=== PATIENT | female | born 1930 | race Caucasian/White ===

== ENCOUNTER 2016-12-28 09:38 | Emergency (ER) | payer MEDICARE, OTHER ==
[~2016-12-28 09:38] MED LIST: AMLO5 PO; AUGM875T PO; FURO20TA PO; IPRAAER INH; LEVO88TA2 PO; LOSA100T3 PO; METO100T PO; PANT40TA3 PO; POTA20TA5 PO; SYMB160A INH; VENTAER INH; WARF4TAB51 PO
[2016-12-28 09:40] VITALS: BP 120/62; PULSE 102; RESP 24; TEMP 97.5; O2SAT 99
--- NOTE | 2016-12-28 09:59 | PD ---
HPI Chief Complaint: Syncope/Near-Syncope Time Seen by Provider: 09:59 Travel History International Travel<30 days: No Contact w/Intl Traveler<30days: No Traveled to known affect area: No History of Present Illness HPI 86-year-old female came to the emergency room with history of near syncopal episode this morning. Patient says that this happened at around 8:30 AM. She says she is positive she never passed out but got really lightheaded. No history of nausea vomiting. She says that yesterday she was feeling tired and some shortness of breath. Her oxygen saturation was 94-95% on room air. Patient is very active in spite of her age. She still works. She does have history of atrial fibrillation and is on Coumadin. Upon asking she said that she has not noticed any ankle swelling. Her heart rate was in 100s and atrial fibrillation on the monitor. Denied any history of chest pain. She has a pacemaker and has a top carrier. Currently she says she just feels a little tired and little short of breath. [facility] Past Medical History Narrative Medical List of her past medical, surgical, social and family history was reviewed from the nursing note. Hx Anticoagulant Therapy: Yes (COUMADIN) Arthritis: Yes Asthma: No Atrial Fibrillation: Yes Autoimmune Disease: No Blood Disorders: No Heart Rhythm Problems: Yes Cancer: No Cardiovascular Problems: Yes High Cholesterol: No Chemotherapy: No Chest Pain: Yes Congestive Heart Failure: Yes COPD: No Cerebrovascular Accident: No Diabetes: No Diminished Hearing: No Endocrine: Yes Gastrointestinal Disorders: No GERD: Yes (Occasionally) Genitourinary: Yes (Incontinence) Headaches: No Hiatal Hernia: No Heparin Induced Thrombocytopen: No Hypertension: Yes Immune Disorder: No Implanted Vascular Access Dvce: Yes (PACEMAKER) Kidney Stones: No Musculoskeletal: No Neurologic: No Psychiatric: No Reproductive: No Respiratory: Yes Migraines: No Radiation Therapy: No Renal Failure: No Seizures: No Sickle Cell Disease: No Sleep Apnea: No Thyroid Disease: Yes (Hypothyroidism) Ulcer: No ?: Not Menopausal: Yes : 3 Para: 3 Past Surgical History Abdominal Surgery: No AICD: No Arteriovenous Shunt: Yes Body Medical Devices: pacemaker Cardiac Surgery: Yes (Pacemaker) Ear Surgery: No Endocrine Surgery: No Eye Surgery: Yes (Bilateral cataract removal with Implants) Genitourinary Surgery: Yes (Bladder Mesh/Pesserie) Gynecologic Surgery: No Hysterectomy: Yes Insulin Pump: No Joint Replacement: No Neurologic Surgery: No Oral Surgery: Yes (Teeth removed) Pacemaker: Yes Thoracic Surgery: No Other Surgery: Yes (see hx) Social History Alcohol Use: No (PT DENIES) Tobacco Use: No Substance Use: No Allergies-Medications (Allergen,Severity, Reaction): Uncoded Allergies: no mri (Adverse Reaction, Severe, 06/07/16) pacemaker Comments List of her allergies reviewed from the nursing note. Reported Meds & Prescriptions Reported Meds & Active Scripts Active Potassium Chloride Microencaps 20 Meq Tab 20 Meq PO DAILY Ventolin Hfa 18 GM Inh (Albuterol Sulfate) 90 Mcg/Act Aer 2 Puff INH Q4H PRN Combivent Respimat Inh (Ipratropium-Albuterol Inh) 20-100 Longterm/Act Aero 1 Puff INH QID Symbicort Inh (Budesonide/Formoterol Fumarate) 160-4.5 Mcg/Act Aero 1 Puff INH Q12HR Norvasc (Amlodipine Besylate) 5 Mg Tab 5 Mg PO BID Reported Losartan-Hydrochlorothiazide 100-12.5 Mg Tab 1 Tab PO DAILY Furosemide 20 Mg Tab 20 Mg PO DAILY Metoprolol Tartrate 100 Mg Tab 100 Mg PO BID Warfarin 2 Mg Tab 2 Mg PO DAILY Levothyroxine (Levothyroxine Sodium) 88 Mcg Tab 88 Mcg PO DAILY Pantoprazole (Pantoprazole Sodium) 40 Mg Tab 40 Mg PO DAILY Narrative Medication List of home medications reviewed from the nursing note. Review of Systems Except as stated in HPI: all other systems reviewed are Neg Physical Exam Narrative GENERAL: Awake, alert, elderly, mild distress SKIN: Focused skin assessment warm/dry. HEAD: Atraumatic. Normocephalic. EYES: Pupils equal and round. No scleral icterus. No injection or drainage. ENT: No nasal bleeding or discharge. Mucous membranes pink and moist. NECK: Trachea midline. No JVD. CARDIOVASCULAR: Regular rate and rhythm. No murmur appreciated. RESPIRATORY: No accessory muscle use. Clear to auscultation. Breath sounds equal bilaterally. GASTROINTESTINAL: Abdomen soft, non-tender, nondistended. Hepatic and splenic margins not palpable. MUSCULOSKELETAL: No obvious deformities. No clubbing. No cyanosis. Mild pedal edema NEUROLOGICAL: Awake and alert. No obvious cranial nerve deficits. Motor grossly within normal limits. Normal speech. PSYCHIATRIC: Appropriate mood and affect; insight and judgment normal. Data Data Last Documented VS Vital Signs Date Time Temp Pulse Resp B/P Pulse Ox O2 Delivery O2 Flow Rate FiO2 12/28/16 11:48 112 20 110/67 95 Room Air 12/28/16 10:26 2 12/28/16 09:40 97.5 Orders Electrocardiogram (12/28/16 ) Basic Metabolic Panel (Bmp) (12/28/16 10:10) Complete Blood Count With Diff (12/28/16 10:10) Magnesium (Mg) (12/28/16 10:10) B-Type Natriuretic Peptide (12/28/16 10:10) Troponin I (12/28/16 10:10) Prothrombin Time / Inr (Pt) (12/28/16 10:10) Urinalysis - C+S If Indicated (12/28/16 10:10) Chest, Single Ap (12/28/16 10:10) Ct Brain W/O Iv Contrast(Rout) (12/28/16 10:10) Ecg Monitoring (12/28/16 10:10) Iv Access Insert/Monitor (12/28/16 10:10) Oximetry (12/28/16 10:10) Sodium Chloride 0.9% Flush (Ns Flush) (12/28/16 10:15) Thyroid Stimulating Hormone (12/28/16 10:10) Furosemide Inj (Lasix Inj) (12/28/16 11:30) Metoprolol Tartrate (Lopressor) (12/28/16 11:30) Labs Laboratory Tests Test 12/28/16 10:20 White Blood Count 6.4 TH/MM3 Red Blood Count 3.72 MIL/MM3 Hemoglobin 10.2 GM/DL Hematocrit 32.1 % Mean Corpuscular Volume 86.2 FL Mean Corpuscular Hemoglobin 27.3 PG Mean Corpuscular Hemoglobin 31.7 % Concent Red Cell Distribution Width 16.2 % Platelet Count 189 TH/MM3 Mean Platelet Volume 9.8 FL Neutrophils (%) (Auto) 69.1 % Lymphocytes (%) (Auto) 19.6 % Monocytes (%) (Auto) 6.6 % Eosinophils (%) (Auto) 4.0 % Basophils (%) (Auto) 0.7 % Neutrophils # (Auto) 4.4 TH/MM3 Lymphocytes # (Auto) 1.2 TH/MM3 Monocytes # (Auto) 0.4 TH/MM3 Eosinophils # (Auto) 0.3 TH/MM3 Basophils # (Auto) 0.0 TH/MM3 CBC Comment DIFF FINAL Differential Comment Prothrombin Time 25.4 SEC Prothromb Time International 2.2 RATIO Ratio Urine Color YELLOW Urine Turbidity HAZY Urine pH 5.5 Urine Specific [place] 1.018 Urine Protein 30 mg/dL Urine Glucose (UA) NEG mg/dL Urine Ketones NEG mg/dL Urine Occult Blood NEG Urine Nitrite NEG Urine Bilirubin NEG Urine Urobilinogen 2.0 MG/DL Urine Leukocyte Esterase LARGE Urine RBC 4 /hpf Urine WBC 8 /hpf Urine Squamous Epithelial 25 /hpf Cells Urine Renal Epithelial Cells 5 /hpf Urine Amorphous Sediment RARE Urine Bacteria RARE /hpf Urine Hyaline Casts 16 /lpf Urine Mucus FEW /lpf Microscopic Urinalysis Comment CULT NOT INDICATED Sodium Level 138 MEQ/L Potassium Level 4.5 MEQ/L Chloride Level 105 MEQ/L Carbon Dioxide Level 24.4 MEQ/L Anion Gap 9 MEQ/L Blood Urea Nitrogen 24 MG/DL Creatinine 1.46 MG/DL Estimat Glomerular Filtration 34 ML/MIN Rate Random Glucose 100 MG/DL Calcium Level 8.7 MG/DL Magnesium Level 1.8 MG/DL Troponin I LESS THAN 0.02 NG/ML B-Type Natriuretic Peptide 551 PG/ML Thyroid Stimulating Hormone 1.300 uIU/ML 3rd Gen [facility] Medical Decision Making Medical Screen Exam Complete: Yes Emergency Medical Condition: Yes Medical Record Reviewed: Yes Interpretation(s) Twelve-lead EKG was reviewed by me. Atrial fibrillation with intermittent paced rhythm. Heart rate of 88 bpm. Differential Diagnosis Congestive heart failure, electrolyte abnormality, ACS Narrative Course 12:49 PM blood test results of back and BNP is mildly elevated. Patient has renal insufficiency which could be her baseline. Chest x-ray suggestive of mild congestive heart failure. Patient was given 40 mg of IV Lasix. Patient says that her primary care recently stopped the Lasix and instead gave her losartan with hydrochlorothiazide. Patient was also given her daily dose of 100 mg of Lopressor since her heart rate look like it was slowly going up to 120s. Currently heart rate is in the 90s to 100. At this point I'm comfortable discharging her home. She did have some urine output. Patient will need to follow up with her primary care and her top carrier. INR is in therapeutic range. Procedures EKG Prior to Arrival: No Diagnosis Primary Impression: CHF (congestive heart failure) Qualified Code: I50.9 - Congestive heart failure, unspecified congestive heart failure chronicity, unspecified congestive heart failure type Additional Impressions: Near syncope Atrial fibrillation Qualified Code: I48.2 - Chronic atrial fibrillation Referrals: Primary Care Physician 2 days Additional Instructions: Please return to the ER if the condition worsens or any other new concerns. Otherwise follow-up with your primary care in couple days. Med/Other Pt SpecificInfo: No Change to Meds Disposition: 01 DISCHARGE HOME Condition: Stable Bossman Wall MD Dec 28, 2016 09:59 Bossman Wall MD Dec 28, 2016 09:59
[2016-12-28] MEDS ORDERED: SODIUM CHLORIDE 0.9% FLUSH 10 ML FLUSH IVF PRN (10:15)
[2016-12-28 10:26] VITALS: O2SAT 97
--- NOTE | 2016-12-28 10:30 | RADRPT ---
EXAM DATE/TIME: 12/28/2016 10:19 [facility] COMPARISON: CT BRAIN W/O CONTRAST, August 17, 2014, 3:33. INDICATIONS : Blurred vision and general weakness today. RADIATION DOSE: 36.02 CTDIvol (mGy) MEDICAL HISTORY : Hypertension. Cardiovascular disease SURGICAL HISTORY : Hysterectomy. ENCOUNTER: Initial ACUITY: 1 day PAIN SCALE: 0/10 LOCATION: Bilateral head TECHNIQUE: Multiple contiguous axial images were obtained of the head. Using automated exposure control and adj ustment of the mA and/or kV according to patient size, radiation dose was kept as low as reasonably a chievable to obtain optimal diagnostic quality images. FINDINGS: CEREBRUM: The ventricles are normal for age. No evidence of midline shift, mass lesion, hemorrhage or acute in farction. No extra-axial fluid collections are seen. POSTERIOR FOSSA: The cerebellum and brainstem are intact. The 4th ventricle is midline. The cerebellopontine angle i s unremarkable. EXTRACRANIAL: The visualized portion of the orbits is intact. SKULL: The calvaria is intact. No evidence of skull fracture. CONCLUSION: No acute disease. Michael Chacon MD FACR on December 28, 2016 at 10:28 Board Certified Radiologist. This report was verified electronically.
--- NOTE | 2016-12-28 10:45 | RADRPT ---
EXAM DATE/TIME: 12/28/2016 10:26 [facility] COMPARISON: CHEST SINGLE AP, June 07, 2016, 3:52. INDICATIONS : Cough and congestion. MEDICAL HISTORY : Hypertension. Congestive heart failure. A-Fib. SURGICAL HISTORY : Pacemaker. ENCOUNTER: Initial ACUITY: 4 - 6 days PAIN SCORE: 0/10 LOCATION: Bilateral chest FINDINGS: Pacemaker is in good position. Heart is minimally enlarged. There is very mild pulmonary venous con gestion. There is no alveolar consolidation, pleural effusion or pneumothorax. CONCLUSION: Pacemaker, cardiomegaly with very mild interstitial edema. Michael Chacon MD FACR on December 28, 2016 at 10:39 Board Certified Radiologist. This report was verified electronically.
[2016-12-28 10:47] LABS: AUTOMATED NEUTROPHIL # 4.4 TH/MM3 (1.8-7.7); BASOPHIL % 0.7 % (0.0-2.0); EOSINOPHIL # 0.3 TH/MM3 (0-0.4); HEMATOCRIT 32.1 % (35.0-46.0); HEMO FLAGS DIFF FINAL; LYMPH % 19.6 % (9.0-44.0); LYMPHOCYTE # 1.2 TH/MM3 (1.0-4.8); MEAN CELL VOLUME 86.2 FL (80.0-100.0); MEAN CORPUSCULAR HEMOGLOBIN 27.3 PG (27.0-34.0); MEAN CORPUSCULAR HGB CONC 31.7 % (32.0-36.0); MONO % 6.6 % (0.0-8.0); NEUT % 69.1 % (16.0-70.0); PLATELET COUNT 189 TH/MM3 (150-450); RED BLOOD COUNT 3.72 MIL/MM3 (4.00-5.30); RED CELL DISTRIBUTION WIDTH 16.2 % (11.6-17.2); WHITE BLOOD COUNT 6.4 TH/MM3 (4.0-11.0)
[2016-12-28 10:55] LABS: INTERNATIONAL NORMALIZED RATIO 2.2 RATIO; PROTHROMBIN TIME - PATIENT 25.4 SEC (9.8-11.6)
[2016-12-28 11:10] LABS: ANION GAP 9 MEQ/L (5-15); BICARBONATE 24.4 MEQ/L (21.0-32.0); BLOOD UREA NITROGEN 24 MG/DL (7-18); CHLORIDE 105 MEQ/L (98-107); GLOMERULAR FILTRATION RATE 34 ML/MIN (>89); MAGNESIUM 1.8 MG/DL (1.5-2.5); POTASSIUM 4.5 MEQ/L (3.5-5.1); SODIUM (NA) 138 MEQ/L (136-145)
[2016-12-28 11:17] LABS: BACTERIA, URINE RARE /hpf; BLOOD, URINE NEG (NEG); COMMENT (UR) CULT NOT INDICATED; CULTURE IF INDICATED CULT NOT INDICATED; GLUCOSE,URINE NEG (NEG); HYALINE CAST, URINE 16 /lpf (RARE); KETONE, URINE NEG (NEG); MUCUS URINE FEW /lpf (OCC); NITRITE,URINE NEG (NEG); PH, URINE 5.5 (5.0-8.5); RENAL EPITHELIAL CELLS 5 /hpf; SQUAMOUS EPITHELIAL CELL URINE 25 /hpf (0-5); URINE COLOR YELLOW (YELLW/STRAW)
[2016-12-28 11:27] VITALS: BP 125/68; PULSE 100; RESP 18; O2SAT 96
[2016-12-28] MEDS ORDERED: METOPROLOL TARTRATE 100 MG TAB PO ONE (11:30)
[2016-12-28] MEDS ORDERED: FUROSEMIDE 40 MG/4 ML VIAL IV PUSH ONE (11:30)
[2016-12-28 11:44] VITALS: PULSE 118
[2016-12-28 11:48] VITALS: BP 110/67; PULSE 112; RESP 20; O2SAT 95
--- NOTE | 2016-12-29 09:47 | EKG ---
Date Performed: 12/28/2016 Time Performed: 09:59:04 PTAGE: 86 years EKG: probable atrial fibrillation ELECTRONIC VENTRICULAR PACEMAKER -- CONTOUR ANALYSIS BASED ON INTRINSIC RHYTHM NONSPECIFIC ST & T-WAVE ABNORMALITY ABNORMAL RHYTHM ECG PREVIOUS TRACING : 06/07/2016 04.16 DOCTOR: Benton Rosa Interpretating Date/Time 12/29/2016 09:39:08
== END 2016-12-28 13:36 | disposition home or self-care (01) ==
LOC: NEPE 09:38
DX: I50.9 Heart failure, unspecified (principal); R55 Syncope and collapse; I48.2 Chronic atrial fibrillation; I10 Essential (primary) hypertension; R94.31 Abnormal electrocardiogram [ECG] [EKG]; N28.9 Disorder of kidney and ureter, unspecified; Z79.01 Long term (current) use of anticoagulants
CPT/HCPCS: 70450; 71010; 80048; 81001; 83735; 83880; 84443; 84484; 85025; 85610; 93005; 96374; 99285; J1940

== ENCOUNTER 2017-01-11 10:38 | Inpatient (IN) | payer OTHER, MEDICARE ==
[2017-01-11] VITALS (11 sets, daily range): BP systolic 102–162; BP diastolic 51–93; PULSE 80–118; RESP 16–26; TEMP 97.5–98.4; O2SAT 88–98
[~2017-01-11] VITALS: Ht 160 cm; Wt 57.3 kg
[~2017-01-11 10:38] MED LIST changes: -AUGM875T PO
[2017-01-11] MEDS ORDERED: SODIUM CHLORIDE 0.9% FLUSH 10 ML FLUSH IVF PRN (11:00)
[2017-01-11] MEDS ORDERED: LEVO50TA4 PO (11:02)
[2017-01-11] MEDS ORDERED: HYDR-3516 PO (11:04)
--- NOTE | 2017-01-11 11:05 | PD ---
HPI Chief Complaint: Respiratory Symptoms Time Seen by Provider: 10:52 Travel History International Travel<30 days: No Contact w/Intl Traveler<30days: No Traveled to known affect area: No History of Present Illness HPI 86yo F with PMH of afib on coumadin, CHF presents to the ED with c/o worsening sob. Pt was seen here on 12/28/16 and was given lasix and discharged home. Pt followed up with PMD on Friday and states that he said she cannot be on lasix because of her renal function. Added a blood pressure medication that she has not picked up yet. States her sob has been worsened for 1 week and she cannot lie down and sleep. Denies any fever, cough, chest pain, n/v, abdominal pain, focal weakness or numbness. PFSH Past Medical History Hx Anticoagulant Therapy: Yes (COUMADIN) Arthritis: Yes Asthma: No Atrial Fibrillation: Yes Autoimmune Disease: No Blood Disorders: No Heart Rhythm Problems: Yes Cancer: No Cardiovascular Problems: Yes (PACEMAKER/CHF) High Cholesterol: No Chemotherapy: No Chest Pain: Yes Congestive Heart Failure: Yes COPD: No Cerebrovascular Accident: No Diabetes: No Diminished Hearing: No Endocrine: Yes Gastrointestinal Disorders: No GERD: Yes (Occasionally) Genitourinary: Yes (Incontinence) Headaches: No Hiatal Hernia: No Heparin Induced Thrombocytopen: No Hypertension: Yes Immune Disorder: No Implanted Vascular Access Dvce: Yes (PACEMAKER) Kidney Stones: No Musculoskeletal: No Neurologic: No Psychiatric: No Reproductive: No Respiratory: Yes Migraines: No Radiation Therapy: No Renal Failure: No Seizures: No Sickle Cell Disease: No Sleep Apnea: No Thyroid Disease: Yes (Hypothyroidism) Ulcer: No ?: Not Menopausal: Yes : 3 Para: 3 Past Surgical History Abdominal Surgery: No AICD: No Arteriovenous Shunt: Yes Body Medical Devices: pacemaker Cardiac Surgery: Yes (Pacemaker) Ear Surgery: No Endocrine Surgery: No Eye Surgery: Yes (Bilateral cataract removal with Implants) Genitourinary Surgery: Yes (Bladder Mesh/Pesserie) Gynecologic Surgery: No Hysterectomy: Yes Insulin Pump: No Joint Replacement: No Neurologic Surgery: No Oral Surgery: Yes (Teeth removed) Pacemaker: Yes Thoracic Surgery: No Other Surgery: Yes (see hx) Social History Alcohol Use: No (PT DENIES) Tobacco Use: No Substance Use: No Allergies-Medications (Allergen,Severity, Reaction): Uncoded Allergies: no mri (Adverse Reaction, Severe, 01/11/17) pacemaker NKDA Reported Meds & Prescriptions Reported Meds & Active Scripts Active Combivent Respimat Inh (Ipratropium-Albuterol Inh) 20-100 [facility]/Act Aero 1 Puff INH QID Reported Hydrocodone-Acetaminophen 5-325 mg Tab 1 Tab PO Q4H PRN Levothyroxine (Levothyroxine Sodium) 50 Mcg Tab 50 Mcg PO DAILY Metoprolol Tartrate 100 Mg Tab 100 Mg PO BID Warfarin 2 Mg Tab 2 Mg PO DAILY Pantoprazole (Pantoprazole Sodium) 40 Mg Tab 40 Mg PO DAILY Review of Systems Except as stated in HPI: all other systems reviewed are Neg Physical Exam Narrative GENERAL: 86yo F not in distress. SKIN: Focused skin assessment warm/dry. HEAD: Atraumatic. Normocephalic. EYES: Pupils equal and round. No scleral icterus. No injection or drainage. ENT: No nasal bleeding or discharge. Mucous membranes pink and moist. NECK: Trachea midline. No JVD. CARDIOVASCULAR: irregular rate and rhythm. No murmur appreciated. RESPIRATORY: No accessory muscle use. Decreased breath sounds bibasilar lungs. GASTROINTESTINAL: Abdomen soft, non-tender, nondistended. No rebound tenderness or guarding. MUSCULOSKELETAL: No obvious deformities. No clubbing. No cyanosis. +Bilateral lower ext edema. NEUROLOGICAL: Awake and alert. No obvious cranial nerve deficits. Motor grossly within normal limits. Normal speech. PSYCHIATRIC: Appropriate mood and affect; insight and judgment normal. Data Data Last Documented VS Vital Signs Date Time Temp Pulse Resp B/P Pulse Ox O2 Delivery O2 Flow Rate FiO2 01/11/17 12:14 94 Room Air 01/11/17 10:53 96 26 133/81 01/11/17 10:40 97.8 Orders Complete Blood Count With Diff (01/11/17 11:00) Basic Metabolic Panel (Bmp) (01/11/17 11:00) B-Type Natriuretic Peptide (01/11/17 11:00) Act Partial Throm Time (Ptt) (01/11/17 11:00) Prothrombin Time / Inr (Pt) (01/11/17 11:00) Ckmb (Isoenzyme) Profile (01/11/17 11:00) Troponin I (01/11/17 11:00) Iv Access Insert/Monitor (01/11/17 11:00) Electrocardiogram (01/11/17 11:00) Ecg Monitoring (01/11/17 11:00) Oximetry (01/11/17 11:00) Oxygen Administration (01/11/17 11:00) Chest, Single Ap (01/11/17 11:00) Sodium Chloride 0.9% Flush (Ns Flush) (01/11/17 11:00) Metoprolol Tartrate (Lopressor) (01/11/17 12:15) Furosemide Inj (Lasix Inj) (01/11/17 12:15) Potassium Chloride (Kcl) (01/11/17 12:15) Levothyroxine (Synthroid) (01/12/17 06:00) Metoprolol Tartrate (Lopressor) (01/11/17 21:00) Warfarin (Coumadin) (01/12/17 16:00) Admit Order (Ed Use Only) (01/11/17 12:24) Place In Observation (01/11/17 ) Vital Signs (Adult) Q4H (01/11/17 12:24) Activity Oob Ad Ruma (01/11/17 12:24) Prop Setter / Telemetry .CONTINUOUS (01/11/17 12:24) Intake + Output ANDREA.QSHIFT (01/11/17 12:24) Notify Dr: Other (01/11/17 12:24) Sodium Chloride 0.9% Flush (Ns Flush) (01/11/17 12:30) Sodium Chloride 0.9% Flush (Ns Flush) (01/11/17 21:00) Acetaminophen (Tylenol) (01/11/17 12:30) Ondansetron Inj (Zofran Inj) (01/11/17 12:30) Basic Metabolic Panel (Bmp) (01/12/17 06:00) Complete Blood Count With Diff (01/12/17 06:00) Creatine Kinase (Cpk) (01/11/17 18:24) Prothrombin Time / Inr (Pt) (01/12/17 06:00) Urinalysis - C+S If Indicated (01/11/17 12:24) Hepatic Functional Panel (01/12/17 06:00) Resp Oxygen Jung C Titrat 1-4 L (01/11/17 ) Pt Request For Service (01/11/17 12:24) Case Management Consult (01/11/17 12:24) Naloxone Inj (Narcan Inj) (01/11/17 12:30) Docusate Sodium-Senna (Hansa-Colace) (01/11/17 21:00) Magnesium Hydroxide Liq (Milk Of Magnesi (01/11/17 12:30) Sennosides (Senokot) (01/11/17 12:30) Bisacodyl Supp (Dulcolax Supp) (01/11/17 12:30) Lactulose Liq (Lactulose Liq) (01/11/17 12:30) Labs Laboratory Tests Test 01/11/17 11:05 White Blood Count 8.3 TH/MM3 Red Blood Count 3.79 MIL/MM3 Hemoglobin 10.4 GM/DL Hematocrit 32.0 % Mean Corpuscular Volume 84.4 FL Mean Corpuscular Hemoglobin 27.5 PG Mean Corpuscular Hemoglobin 32.6 % Concent Red Cell Distribution Width 15.3 % Platelet Count 175 TH/MM3 Mean Platelet Volume 10.1 FL Neutrophils (%) (Auto) 72.3 % Lymphocytes (%) (Auto) 16.1 % Monocytes (%) (Auto) 7.8 % Eosinophils (%) (Auto) 3.1 % Basophils (%) (Auto) 0.7 % Neutrophils # (Auto) 6.0 TH/MM3 Lymphocytes # (Auto) 1.3 TH/MM3 Monocytes # (Auto) 0.6 TH/MM3 Eosinophils # (Auto) 0.3 TH/MM3 Basophils # (Auto) 0.1 TH/MM3 CBC Comment DIFF FINAL Differential Comment Prothrombin Time 22.1 SEC Prothromb Time International 1.9 RATIO Ratio Activated Partial 32.4 SEC Thromboplast Time Sodium Level 142 MEQ/L Potassium Level 3.5 MEQ/L Chloride Level 108 MEQ/L Carbon Dioxide Level 27.5 MEQ/L Anion Gap 7 MEQ/L Blood Urea Nitrogen 22 MG/DL Creatinine 1.14 MG/DL Estimat Glomerular Filtration 45 ML/MIN Rate Random Glucose 108 MG/DL Calcium Level 8.3 MG/DL Total Bilirubin 0.7 MG/DL Direct Bilirubin 0.2 MG/DL Indirect Bilirubin 0.5 MG/DL Aspartate Amino Transf 65 U/L (AST/SGOT) Alanine Aminotransferase 109 U/L (ALT/SGPT) Alkaline Phosphatase 76 U/L Total Creatine Kinase 43 U/L Troponin I LESS THAN 0.02 NG/ML B-Type Natriuretic Peptide 1577 PG/ML Total Protein 6.6 GM/DL Albumin 3.0 GM/DL MDM Medical Decision Making Medical Screen Exam Complete: Yes Emergency Medical Condition: Yes Interpretation(s) EKG: Afib at 101bpm. Normal axis. Mild ST depression I, II, aVF, V4-V6. Differential Diagnosis CHF exacerbation vs. pneumonia vs. ACS Narrative Course 86yo F with CHF and worsening sob for 1 week. Labs reviewed, no leukocytosis. H/H low at 10.4/32 but at baseline. Troponin negative. BUN/creatinine at 22/ 1.14. BNP elevated at 1577 which is higher than 551 on 12/28/16. INR 1.9. CXR showed pulmonary venous congestion with small bilateral effusions. Mild bibasilar infiltrates which are new compare to the prior study. I think pt is clinically having CHF exacerbation and not pneumonia. Pt is Afib fluctuating between 90s to low 110s. Pt takes metoprolol and has not taken her morning medications. Will give metoprolol 100mg. Creatinine is 1.14 today. Will give lasix 40mg IV and potassium is 3.5 so will give 40mEq KCl. Discussed with Dr. Smith and accepted to his service. Diagnosis Primary Impression: CHF exacerbation Qualified Code: I50.9 - Acute on chronic congestive heart failure, unspecified congestive heart failure type Admitting Information Admitting Physician Requests: Ara Paz DO Jan 11, 2017 11:05
[2017-01-11 11:16] LABS: BASOPHIL # 0.1 TH/MM3 (0-0.2); BASOPHIL % 0.7 % (0.0-2.0); EOSINOPHIL # 0.3 TH/MM3 (0-0.4); EOSINOPHIL % 3.1 % (0.0-4.0); HEMO FLAGS DIFF FINAL; LYMPH % 16.1 % (9.0-44.0); LYMPHOCYTE # 1.3 TH/MM3 (1.0-4.8); MEAN CELL VOLUME 84.4 FL (80.0-100.0); MEAN CORPUSCULAR HEMOGLOBIN 27.5 PG (27.0-34.0); MEAN CORPUSCULAR HGB CONC 32.6 % (32.0-36.0); MONO % 7.8 % (0.0-8.0); NEUT % 72.3 % (16.0-70.0); PLATELET COUNT 175 TH/MM3 (150-450); RED BLOOD COUNT 3.79 MIL/MM3 (4.00-5.30); RED CELL DISTRIBUTION WIDTH 15.3 % (11.6-17.2); WHITE BLOOD COUNT 8.3 TH/MM3 (4.0-11.0)
[2017-01-11 11:28] LABS: APTT (PATIENT) 32.4 SEC (24.3-30.1); INTERNATIONAL NORMALIZED RATIO 1.9 RATIO; PROTHROMBIN TIME - PATIENT 22.1 SEC (9.8-11.6)
--- NOTE | 2017-01-11 11:31 | RADRPT ---
EXAM DATE/TIME: 01/11/2017 11:13 [facility] COMPARISON: CHEST SINGLE AP, December 28, 2016, 10:26. INDICATIONS : Shortness of breath. MEDICAL HISTORY : Hypertension. Congestive heart failure. A-Fib. SURGICAL HISTORY : Pacemaker. ENCOUNTER: Initial ACUITY: 1 day PAIN SCORE: 0/10 LOCATION: Bilateral chest FINDINGS: There is some infiltrates in both lung bases on today's study which are new compared to the prior exa m. The heart size is enlarged but stable. Mild bibasilar effusions. There is some pulmonary venous co ngestion. There is a pacemaker overlying the left chest. CONCLUSION: Pulmonary venous congestion with small bilateral effusions. Mild bibasilar infiltrates which are new compared to the prior study. Checo Ybarra MD on January 11, 2017 at 11:28 Board Certified Radiologist. This report was verified electronically.
[2017-01-11 11:32] LABS: ANION GAP 7 MEQ/L (5-15); BICARBONATE 27.5 MEQ/L (21.0-32.0); BLOOD UREA NITROGEN 22 MG/DL (7-18); CHLORIDE 108 MEQ/L (98-107); GLOMERULAR FILTRATION RATE 45 ML/MIN (>89); POTASSIUM 3.5 MEQ/L (3.5-5.1); SODIUM (NA) 142 MEQ/L (136-145)
[2017-01-11 11:38] LABS: CREATINE KINASE 43 U/L (26-192)
[2017-01-11] MEDS ORDERED: FUROSEMIDE 40 MG/4 ML VIAL IV PUSH ONE (12:15)
[2017-01-11] MEDS ORDERED: METOPROLOL TARTRATE 100 MG TAB PO ONE (12:15)
[2017-01-11] MEDS ORDERED: POTASSIUM CHLORIDE 20 MEQ CONTROLLED RELEASE TAB PO ONE (12:15)
[2017-01-11] MEDS ORDERED: SODIUM CHLORIDE 0.9% FLUSH 10 ML FLUSH IV FLUSH PRN (12:30)
[2017-01-11] MEDS ORDERED: BISACODYL 10 MG SUPP RECTAL PRN (12:30)
[2017-01-11] MEDS ORDERED: ACETAMINOPHEN 325 MG TAB PO PRN (12:30)
[2017-01-11] MEDS ORDERED: SENNOSIDES 8.6 MG TAB PO PRN (12:30)
[2017-01-11] MEDS ORDERED: NALOXONE HCL 0.4 MG/ML AMP IV PRN (12:30)
--- NOTE | 2017-01-11 12:33 | HHI.HP ---
[facility]ness [facility] breath. [facility] Admission Diagnosis CHF exacerbation Diagnoses: Chief Complaint: Shortness of breath. Travel History International Travel<30 Days: No Contact w/Intl Traveler <30 Da: No Traveled to Known Affected Are: No History of Present Illness 86yo F with PMH of afib on coumadin, CHF presents to the ED with c/o worsening sob. Pt was seen here on 12/28/16 and was given lasix and discharged home. Pt followed up with PMD on Friday and states that he said she cannot be on Lasix because of her renal function. Added a blood pressure medication that she has not picked up yet. States her sob has been worsened for 1 week and she cannot lie down and sleep. Denies any fever, cough, chest pain, n/v, abdominal pain, focal weakness or numbness. seen in her bedroom in Emergency room the patient states she has discomfort in her abdomen but no pain, has pain on her Thoracic area, not able to eat or eat well. was found to have increased BNP in ER today, tells me her Primary manipulative therapy specialist is Doctor Jansen and wants to see him asked for consult. Review of Systems Respiratory: COMPLAINS OF: Shortness of breath Except as stated in HPI: all other systems reviewed are Neg Past Family Social History Past Medical History Chronic Warfarin therapy OA Atrial Fibrillation pacemaker placement CHF GERD Urinary Incontinence. Hypertension Hypothyroidism Past Surgical History Pacemaker Bilateral Cataract removal with implants Bladder Mesh/Pesserie AN Reported Medications Reported Meds & Active Scripts Active Combivent Respimat Inh (Ipratropium-Albuterol Inh) 20-100 Fpc/Act Aero 1 Puff INH QID Reported Hydrocodone-Acetaminophen 5-325 mg Tab 1 Tab PO Q4H PRN Levothyroxine (Levothyroxine Sodium) 50 Mcg Tab 50 Mcg PO DAILY Metoprolol Tartrate 100 Mg Tab 100 Mg PO BID Warfarin 2 Mg Tab 2 Mg PO DAILY Pantoprazole (Pantoprazole Sodium) 40 Mg Tab 40 Mg PO DAILY Allergies: Uncoded Allergies: no mri (Adverse Reaction, Severe, 06/07/16) pacemaker Active Ordered Medications Current Medications Medications (Trade) Dose Ordered Sig/Ricky Route Start Time Stop Time Status Last Admin (Synthroid) 50 mcg DAILY@06 PO 01/12/17 06:00 (Lopressor) 100 mg BID PO 01/11/17 21:00 (Coumadin) 2 mg DAILY@1600 PO 01/12/17 16:00 (NS Flush) 2 ml UNSCH PRN IV FLUSH 01/11/17 12:30 (NS Flush) 2 ml BID IV FLUSH 01/11/17 21:00 (Tylenol) 650 mg Q4H PRN PO 01/11/17 12:30 (Zofran Inj) 4 mg Q6H PRN IVP 01/11/17 12:30 (Narcan Inj) 0.4 mg UNSCH PRN IV 01/11/17 12:30 (Hansa-Colace) 1 tab BID PO 01/11/17 21:00 (Milk Of Magnesia Liq) 30 ml Q12H PRN PO 01/11/17 12:30 (Senokot) 17.2 mg Q12H PRN PO 01/11/17 12:30 (Dulcolax Supp) 10 mg DAILY PRN RECTAL 01/11/17 12:30 (Lactulose Liq) 30 ml DAILY PRN PO 01/11/17 12:30 (Coumadin Booklet) 1 ONCE ONCE .XX 01/12/17 09:00 01/12/17 09:01 Family History Asked and denies. Social History Her son and Grand son lives with her, No toxic habits. Physical Exam Vital Signs Vital Signs Date Time Temp Pulse Resp B/P Pulse Ox O2 Delivery O2 Flow Rate FiO2 01/11/17 12:14 94 Room Air 01/11/17 12:14 94 Room Air 01/11/17 10:53 96 26 133/81 94 Room Air 01/11/17 10:40 97.8 95 16 162/83 98 Physical Exam GENERAL: Cachectic, female, denotes chronic disease SKIN: Focused skin assessment warm/dry. HEAD: Atraumatic. Normocephalic. EYES: Pupils equal and round. No scleral icterus. No injection or drainage. ENT: No nasal bleeding or discharge. Mucous membranes pink and moist. NECK: Trachea midline. No JVD. CARDIOVASCULAR: Regular rate and rhythm. No murmur appreciated. RESPIRATORY: No accessory muscle use. Clear to auscultation. Breath sounds equal bilaterally. GASTROINTESTINAL: Abdomen soft, non-tender, nondistended. No rebound tenderness or guarding. MUSCULOSKELETAL: No obvious deformities. No clubbing. No cyanosis. +Bilateral lower ext edema. NEUROLOGICAL: Awake and alert. No obvious cranial nerve deficits. Motor grossly within normal limits. Normal speech. PSYCHIATRIC: Appropriate mood and affect; insight and judgment normal. Laboratory Laboratory Tests Test 01/11/17 11:05 White Blood Count 8.3 Red Blood Count 3.79 Hemoglobin 10.4 Hematocrit 32.0 Mean Corpuscular Volume 84.4 Mean Corpuscular Hemoglobin 27.5 Mean Corpuscular Hemoglobin 32.6 Concent Red Cell Distribution Width 15.3 Platelet Count 175 Mean Platelet Volume 10.1 Neutrophils (%) (Auto) 72.3 Lymphocytes (%) (Auto) 16.1 Monocytes (%) (Auto) 7.8 Eosinophils (%) (Auto) 3.1 Basophils (%) (Auto) 0.7 Neutrophils # (Auto) 6.0 Lymphocytes # (Auto) 1.3 Monocytes # (Auto) 0.6 Eosinophils # (Auto) 0.3 Basophils # (Auto) 0.1 CBC Comment DIFF FINAL Differential Comment Prothrombin Time 22.1 Prothromb Time International 1.9 Ratio Activated Partial 32.4 Thromboplast Time Sodium Level 142 Potassium Level 3.5 Chloride Level 108 Carbon Dioxide Level 27.5 Anion Gap 7 Blood Urea Nitrogen 22 Creatinine 1.14 Estimat Glomerular Filtration 45 Rate Random Glucose 108 Calcium Level 8.3 Total Creatine Kinase 43 Troponin I LESS THAN 0.02 B-Type Natriuretic Peptide 1577 Result Diagram: 01/11/17 1105 01/11/17 1105 Imaging Last Impressions Chest X-Ray 01/11/17 1100 Signed Impressions: Service Date/Time: Wednesday, January 11, 2017 11:13 - CONCLUSION: Pulmonary venous congestion with small bilateral effusions. Mild bibasilar infiltrates which are new compared to the prior study. Checo Ybarra MD Assessment and Plan Assessment and Plan 1. CHF exacerbation has increased BNP 1577 she was just recently seen in this facility and discharged after Lasix given given already one dose of Lasix IV in ER will follow her, she does not have signs of overload will follow manipulative therapy specialist recommendations. 2. Suspected Thoracic spine compromise, she has CKD III and also Pacemaker placed, the only option will be to get CT of The Thoracic [facility] Cervical Spine and follow from there to rule out Thoracic spine fracture. 3. Atrial Fibrillation on chronic Warfarin therapy, at this time continue Warfarin management, continue PT and INR daily, status post Pacemaker placement 4. OA by history 5. GERD by history on hold PPIs 40 mg due to renal failure, giving Carafate. 6. Urinary Incontinence continue Home medicines 7. Hypertension controlled 8. Hypothyroidism continue Hormonal replacement DVT prophylaxis with Warfarin manager digital and PT for discharge. Pain medication. Discussed Condition With Patient and ER physician. Ezekiel Nichols MD Jan 11, 2017 12:33
[2017-01-11] MEDS ORDERED: ACETAMINOPHEN/HYDROcodone 325 MG/5 MG TAB PO PRN (15:00)
[2017-01-11] MEDS: RESP: IPRATROPIUM 0.5 MG/2.5 ML NEB NEB SCH ×2 (16:08→20:24)
--- NOTE | 2017-01-11 16:12 | RADRPT ---
EXAM DATE/TIME: 01/11/2017 15:13 [facility] COMPARISON: No previous studies available for comparison. INDICATIONS : Neck and back pain. RADIATION DOSE: 35.35 CTDIvol (mGy) MEDICAL HISTORY : Cardiovascular disease. Chronic obstructive pulmonary disease. SURGICAL HISTORY : None. ENCOUNTER: Initial ACUITY: 1 day PAIN SCALE: 6/10 LOCATION: Bilateral thoracic TECHNIQUE: Volumetric scanning of the thoracic spine was performed. Multiplanar reconstructions in the sagittal , coronal and oblique axial planes were performed. Using automated exposure control and adjustment o f the mA and/or kV according to patient size, radiation dose was kept as low as reasonably achievable to obtain optimal diagnostic quality images. DICOM format image data is available electronically f or review and comparison. FINDINGS: The vertebral bodies of the thoracic spine are in normal alignment without evidence of subluxation. Vertebral body height is maintained. No fractures are seen. Bilateral pleural effusions are seen being moderate on the right and mild on the left. There is a car diac pacemaker in place. T1-T2: Normal. T2-T3: The thecal sac has a normal diameter. No evidence of disc bulge or protrusion. T3-T4: The thecal sac has a normal diameter. No evidence of disc bulge or protrusion. T4-T5: The thecal sac has a normal diameter. No evidence of disc bulge or protrusion. T5-T6: The thecal sac has a normal diameter. No evidence of disc bulge or protrusion. Anterior marginal ost eophytes are present. T6-T7: The thecal sac has a normal diameter. No evidence of disc bulge or protrusion. T7-T8: The thecal sac has a normal diameter. No evidence of disc bulge or protrusion. Anterior marginal ost eophytes are present. T8-T9: The thecal sac has a normal diameter. No evidence of disc bulge or protrusion. T9-T10: The thecal sac has a normal diameter. No evidence of disc bulge or protrusion. T10-T11: The thecal sac has a normal diameter. No evidence of disc bulge or protrusion. There is a minimal va cuum phenomenon at the anterior aspect of the disc. T11-T12: The thecal sac has a normal diameter. No evidence of disc bulge or protrusion. T12-L1: The thecal sac has a normal diameter. No evidence of disc bulge or protrusion. CONCLUSION: No acute abnormality is seen in the thoracic spine. Bilateral pleural effusions are present. Edu Chang MD on January 11, 2017 at 16:05 Board Certified Radiologist. This report was verified electronically.
[2017-01-11 16:14] LABS: INDIRECT BILIRUBIN 0.5 MG/DL (0.0-0.8); TOTAL BILIRUBIN ADULT 0.7 MG/DL (0.2-1.0)
--- NOTE | 2017-01-11 16:18 | RADRPT ---
EXAM DATE/TIME: 01/11/2017 15:13 [facility] COMPARISON: No previous studies available for comparison. INDICATIONS : Neck and back pain. RADIATION DOSE: 28.52 CTDIvol (mGy) MEDICAL HISTORY : Cardiovascular disease. Congestive heart failure. SURGICAL HISTORY : None. ENCOUNTER: Initial ACUITY: 1 day PAIN SCALE: 5/10 LOCATION: Bilateral neck TECHNIQUE: Volumetric scanning of the cervical spine was performed. Multiplanar reconstructions i n the sagittal, coronal and oblique axial planes were performed. Using automated exposure control a nd adjustment of the mA and/or kV according to patient size, radiation dose was kept as low as reason ably achievable to obtain optimal diagnostic quality images. DICOM format image data is available e lectronically for review and comparison. FINDINGS: VERTEBRAE: Normal vertebral body height. ALIGNMENT: There is minimal anterior subluxation of C4 on C5 on the order of 2 mm. This is likel y secondary to degenerative change at the facet joints. The cervical vertebral bodies are otherwise normally aligned. C2-C3: The bony spinal canal is normal in size. No evidence of disc bulge or herniation. The neura l foramina are bilaterally patent. C3-C4: There is a mild central disc protrusion. There is bilateral facet hypertrophy. There is heidi e mild uncovertebral hypertrophy on the left. There is some narrowing of the left neural foramen. T he right neural foramen appears intact. C4-C5: Again noted is the minimal anterior subluxation of C4 on C5. The disc space is grossly intac t. Significant spinal stenosis is not appreciated. There is bilateral facet hypertrophy. The neura l foramina appear grossly intact. C5-C6: The disc space is narrowed. A significant impression on the thecal sac is not seen. There i s bilateral facet and uncovertebral hypertrophy being worse on the left. There is narrowing of the l eft neural foramen. The right neural foramen appears grossly intact. C6-C7: The disc space is narrowed. A significant impression on the thecal sac is not seen. There i s uncovertebral hypertrophy. The facet joints are grossly intact. The neural foramina are normal. C7-T1: Intact. CONCLUSION: 1. No acute bony abnormality is seen. 2. Degenerative change at multiple levels as described above. Edu Chang MD on January 11, 2017 at 15:58 Board Certified Radiologist. This report was verified electronically.
--- NOTE | 2017-01-11 16:32 | MB ---
cc: MELISSA TREADWELL MD DATE OF CONSULTATION January 12, 1934 CONSULTATION CHF. HISTORY OF PRESENT ILLNESS The patient is a very pleasant 86-year-old woman who sees my partner, Dr. Jansen for a history of congestive heart failure as well as atrial fibrillation and pacemaker implantation. The patient says over the last couple months she has had worsening shortness of breath particular the last week where she has had notable orthopnea. She presented to the emergency department in clinical congestive heart failure, received IV Lasix and is already improving. She denies any other symptoms such as chest pain, lightheadedness, dizziness or syncope. PAST MEDICAL HISTORY 1. Atrial fibrillation, on Coumadin. 2. Pacemaker. 3. CHF. 4. Gastroesophageal reflux disease. 5. Hypertension. MEDICATIONS Current medications: 1. Warfarin. 2. Synthroid. 3. Lopressor 100 milligrams b.i.d. 4. Valium. 5. Guaifenesin. 6. Megace. 7. She received one dose of IV Lasix. ALLERGIES NO KNOWN DRUG ALLERGIES. PHYSICAL EXAMINATION VITAL SIGNS: Afebrile, pulse 112, respiratory rate 18, BP 155/84, satting 95 on room air. GENERAL: Pleasant well-appearing woman in no distress. NECK: No JVD. LUNGS: Clear to auscultation bilaterally. CARDIOVASCULAR: Mildly tachycardiac, irregularly irregular rhythm. No significant murmurs appreciated. ABDOMEN: Benign. EXTREMITIES: No edema. LABORATORY DATA White count 8.3, hematocrit 32.0, platelets 175. Sodium 142, potassium 3.5, chloride 105, bicarb 27.5, BUN 22, creatinine 1.14, glucose 108. Cardiac enzymes negative x1. BNP is 1577. CARDIOLOGY STUDIES EKG shows atrial fibrillation, rate [address] changes. IMPRESSION 1. CHF: The patient has had another episode of congestive heart failure. She says she has had a recent echo performed here though I do not see it in the computer. I will order an echocardiogram and ask the tech to investigate whether a previous echocardiogram was done last week or so. I will resume her Lasix 40 milligrams IV b.i.d. I will also increase her rate control medications with her atrial fibrillation. Further recommendations will be based on her clinical course. Thank you again for the opportunity to participate in this patient's care. MD CARMELITA Quesada /4:12 PM /4:27 PM
[2017-01-11] MEDS: DILTIAZEM HCL 60 MG TAB PO SCH ×2 (17:50→20:05)
[2017-01-11] MEDS: MEGESTROL ACETATE SUSP 400 MG/10 ML CUP PO SCH (17:50)
[2017-01-11] MEDS: SUCRALFATE 1 GM/10 ML CUP PO SCH ×2 (17:50→20:07)
[2017-01-11] MEDS: guaiFENesin E.R. 600 MG TAB PO SCH ×2 (17:50→20:08)
[2017-01-11] MEDS: FUROSEMIDE 40 MG/4 ML VIAL IV PUSH SCH (17:50)
[2017-01-11] MEDS: SODIUM CHLORIDE 0.9% FLUSH 10 ML FLUSH IV FLUSH SCH (20:05)
[2017-01-11] MEDS: POTASSIUM CHLORIDE 20 MEQ CONTROLLED RELEASE TAB PO SCH (20:07)
[2017-01-11] MEDS: DOCUSATE SODIUM 50 MG/SENNA 8.6 MG TAB PO SCH (20:08)
[2017-01-11] MEDS: METOPROLOL TARTRATE 100 MG TAB PO SCH (20:08)
[2017-01-11] MEDS: DIAZEPAM 2 MG TAB PO SCH (20:08)
[2017-01-12] VITALS (10 sets, daily range): BP systolic 113–138; BP diastolic 59–73; PULSE 71–120; RESP 18–20; TEMP 97.4–98.2; O2SAT 95–99
[2017-01-12] MEDS: RESP: IPRATROPIUM 0.5 MG/2.5 ML NEB NEB SCH ×7 (00:24→23:05)
[2017-01-12] MEDS ORDERED: cloNIDine HCL 0.1 MG TAB PO PRN (01:45)
[2017-01-12] MEDS ORDERED: MORPHINE SULFATE 8 MG/ML INJ IV PUSH PRN (01:45)
[2017-01-12] MEDS: LEVOTHYROXINE SODIUM 50 MCG TAB PO SCH (05:53)
[2017-01-12] MEDS: SUCRALFATE 1 GM/10 ML CUP PO SCH ×4 (06:20→19:56)
[2017-01-12 07:49] LABS: AUTOMATED NEUTROPHIL # 4.9 TH/MM3 (1.8-7.7); BASOPHIL % 0.5 % (0.0-2.0); EOSINOPHIL # 0.2 TH/MM3 (0-0.4); EOSINOPHIL % 2.4 % (0.0-4.0); HEMATOCRIT 28.2 % (35.0-46.0); HEMO FLAGS DIFF FINAL; LYMPH % 22.3 % (9.0-44.0); LYMPHOCYTE # 1.6 TH/MM3 (1.0-4.8); MEAN CELL VOLUME 83.8 FL (80.0-100.0); MEAN CORPUSCULAR HEMOGLOBIN 27.9 PG (27.0-34.0); MEAN CORPUSCULAR HGB CONC 33.3 % (32.0-36.0); MONO % 7.9 % (0.0-8.0); NEUT % 66.9 % (16.0-70.0); PLATELET COUNT 142 TH/MM3 (150-450); RED BLOOD COUNT 3.36 MIL/MM3 (4.00-5.30); RED CELL DISTRIBUTION WIDTH 15.2 % (11.6-17.2); WHITE BLOOD COUNT 7.3 TH/MM3 (4.0-11.0)
[2017-01-12 07:56] LABS: PROTHROMBIN TIME - PATIENT 22.9 SEC (9.8-11.6)
[2017-01-12] MEDS: SODIUM CHLORIDE 0.9% FLUSH 10 ML FLUSH IV FLUSH SCH ×2 (08:06→19:55)
[2017-01-12] MEDS: FUROSEMIDE 40 MG/4 ML VIAL IV PUSH SCH (08:06)
[2017-01-12] MEDS: guaiFENesin E.R. 600 MG TAB PO SCH ×2 (08:06→19:56)
[2017-01-12] MEDS: MEGESTROL ACETATE SUSP 400 MG/10 ML CUP PO SCH (08:06)
[2017-01-12] MEDS: POTASSIUM CHLORIDE 20 MEQ CONTROLLED RELEASE TAB PO SCH ×2 (08:07→19:56)
[2017-01-12] MEDS: DIAZEPAM 2 MG TAB PO SCH ×2 (08:07→19:56)
[2017-01-12] MEDS: DILTIAZEM HCL 60 MG TAB PO SCH ×4 (08:07→19:56)
[2017-01-12] MEDS: METOPROLOL TARTRATE 100 MG TAB PO SCH ×2 (08:07→19:56)
[2017-01-12] MEDS: DOCUSATE SODIUM 50 MG/SENNA 8.6 MG TAB PO SCH ×2 (08:07→19:56)
[2017-01-12 08:11] LABS: BICARBONATE 30.1 MEQ/L (21.0-32.0); POTASSIUM 3.8 MEQ/L (3.5-5.1)
[2017-01-12 08:13] LABS: INDIRECT BILIRUBIN 0.6 MG/DL (0.0-0.8); TOTAL BILIRUBIN ADULT 0.8 MG/DL (0.2-1.0)
--- NOTE | 2017-01-12 11:53 | PD.CARD.PN ---
Subjective Subjective Remarks No changes, still easy dyspnea which she says goes back at least several months (I suspect longer) Objective Medications Administered Medications Medications (Trade) Dose Ordered Sig/Ricky Route PRN Reason Start Time Stop Time Status Last Admin Dose Admin Levothyroxine Sodium (Synthroid) 50 mcg DAILY@06 PO 01/12/17 06:00 01/12/17 05:53 Metoprolol Tartrate (Lopressor) 100 mg BID PO 01/11/17 21:00 01/12/17 08:07 Sodium Chloride (NS Flush) 2 ml UNSCH PRN IV FLUSH FLUSH AFTER USING IV ACCESS 01/11/17 12:30 01/11/17 17:51 Sodium Chloride (NS Flush) 2 ml BID IV FLUSH 01/11/17 21:00 01/12/17 08:06 Senna/Docusate Sodium (Hansa-Colace) 1 tab BID PO 01/11/17 21:00 01/12/17 08:07 Sucralfate (Carafate Liq) 1 gm ACHS PO 01/11/17 16:00 01/12/17 06:20 Guaifenesin (Mucinex Er) 600 mg BID PO 01/11/17 15:00 01/12/17 08:06 Megestrol Acetate (Megace Liq) 400 mg DAILY PO 01/11/17 15:00 01/12/17 08:06 Diazepam (Valium) 2 mg Q12HR PO 01/11/17 21:00 01/12/17 08:07 Diltiazem HCl (Cardizem) 60 mg QID PO 01/11/17 18:00 01/12/17 08:07 Furosemide (Lasix Inj) 40 mg BID@,18 IV PUSH 01/11/17 18:00 01/12/17 08:06 Potassium Chloride (KCl) 20 meq Q12HR PO 01/11/17 21:00 01/12/17 08:07 Vital Signs / I&O Vital Signs Date Time Temp Pulse Resp B/P Pulse Ox O2 Delivery O2 Flow Rate FiO2 01/12/17 10:49 95 Nasal Cannula 2.00 01/12/17 08:18 97.6 77 20 137/66 95 01/12/17 08:05 86 01/11/17 23:22 98.1 80 17 102/51 94 01/11/17 20:20 93 Nasal Cannula 2.00 01/11/17 19:34 87 01/11/17 19:25 98.4 87 18 130/63 92 01/11/17 16:11 93 Nasal Cannula 2.00 01/11/17 14:51 97.7 118 18 155/84 95 01/11/17 13:57 94 01/11/17 13:43 97.5 113 22 160/93 88 01/11/17 12:14 94 Room Air 01/11/17 12:14 94 Room Air I/O 01/11/17 01/11/17 01/11/17 01/12/17 01/12/17 01/12/17 07:00 15:00 23:00 07:00 15:00 23:00 Intake Total 240 ml Balance 240 ml Intake Oral 240 ml # Voids 1 1 # Bowel Movements 1 Physical Exam GENERAL: This is a well-nourished, well-developed patient, in no apparent distress. CARDIOVASCULAR: Regular rate and rhythm without murmurs, gallops, or rubs. RESPIRATORY: Decreased breath sounds GASTROINTESTINAL: Abdomen soft, non-tender, nondistended. Normal active bowel sounds MUSCULOSKELETAL: Extremities without clubbing, cyanosis, or edema. NEURO: Alert & Oriented x4 to person, place, time, situation. Moves all ext x4 Laboratory Laboratory Tests Test 01/11/17 01/12/17 16:58 07:33 Total Creatine Kinase 50 U/L White Blood Count 7.3 TH/MM3 Red Blood Count 3.36 MIL/MM3 Hemoglobin 9.4 GM/DL Hematocrit 28.2 % Mean Corpuscular Volume 83.8 FL Mean Corpuscular Hemoglobin 27.9 PG Mean Corpuscular Hemoglobin 33.3 % Concent Red Cell Distribution Width 15.2 % Platelet Count 142 TH/MM3 Mean Platelet Volume 9.9 FL Neutrophils (%) (Auto) 66.9 % Lymphocytes (%) (Auto) 22.3 % Monocytes (%) (Auto) 7.9 % Eosinophils (%) (Auto) 2.4 % Basophils (%) (Auto) 0.5 % Neutrophils # (Auto) 4.9 TH/MM3 Lymphocytes # (Auto) 1.6 TH/MM3 Monocytes # (Auto) 0.6 TH/MM3 Eosinophils # (Auto) 0.2 TH/MM3 Basophils # (Auto) 0.0 TH/MM3 CBC Comment DIFF FINAL Differential Comment Prothrombin Time 22.9 SEC Prothromb Time International 2.0 RATIO Ratio Sodium Level 140 MEQ/L Potassium Level 3.8 MEQ/L Chloride Level 105 MEQ/L Carbon Dioxide Level 30.1 MEQ/L Anion Gap 5 MEQ/L Blood Urea Nitrogen 27 MG/DL Creatinine 1.25 MG/DL Estimat Glomerular Filtration 40 ML/MIN Rate Random Glucose 105 MG/DL Calcium Level 8.3 MG/DL Total Bilirubin 0.8 MG/DL Direct Bilirubin 0.2 MG/DL Indirect Bilirubin 0.6 MG/DL Aspartate Amino Transf 45 U/L (AST/SGOT) Alanine Aminotransferase 78 U/L (ALT/SGPT) Alkaline Phosphatase 69 U/L Total Protein 6.2 GM/DL Albumin 2.9 GM/DL Imaging Last Impressions Chest X-Ray 01/11/17 1100 Signed Impressions: Service Date/Time: Wednesday, January 11, 2017 11:13 - CONCLUSION: Pulmonary venous congestion with small bilateral effusions. Mild bibasilar infiltrates which are new compared to the prior study. Checo Ybarra MD Thoracic Spine CT 01/11/17 0000 Signed Impressions: Service Date/Time: Wednesday, January 11, 2017 15:13 - CONCLUSION: No acute abnormality is seen in the thoracic spine. Bilateral pleural effusions are present. Edu Chang MD Cervical Spine CT 01/11/17 0000 Signed Impressions: Service Date/Time: Wednesday, January 11, 2017 15:13 - CONCLUSION: 1. No acute bony abnormality is seen. 2. Degenerative change at multiple levels as described above. Eud Chang MD Assessment and Plan Problem List: (1) CHF (congestive heart failure) Assessment and Plan: seems compensated, cr increased, will stop lasix. (2) Atrial fibrillation Assessment and Plan: rate controlled, on warfarin (3) Shortness of breath Assessment and Plan: suspect pulmonary origin, has COPD type breathing on exam ; though she never smoked, long hx of second hand. (4) Generalized weakness Assessment and Plan Dr. Jansen will return in the Am to resume care. Leonardo Ayala MD Jan 12, 2017 11:53
--- NOTE | 2017-01-12 12:06 | EKG ---
Date Performed: 01/11/2017 Time Performed: 11:01:12 PTAGE: 86 years EKG: UNDERLYING RHYTHM IS ATRIAL FIBRILLATION, PACER BEATS ARE ALSO NOTED ELECTRONIC VENTRICULAR PACEMAKER -- CONTOUR ANALYSIS BASED ON INTRINSIC RHYTHM NONSPECIFIC ST & T-WAVE ABNORMALITY Since pr evious tracing, no significant change noted ABNORMAL ECG PREVIOUS TRACING : 12/28/2016 09.59 DOCTOR: Real White Interpretating Date/Time 01/12/2017 12:04:52
--- NOTE | 2017-01-12 12:22 | HHI.PR ---
Subjective Remarks Follow-up for CHF exacerbation. The patient reports continued shortness of breath, not much improved compared to yesterday. She reports a nonproductive cough. Denies fevers or chills. Denies any chest pain or leg swelling. She attempted ambulation with physical therapy, however became dyspneic and had to sit down to rest and catch her breath. Objective Vitals Vital Signs Date Time Temp Pulse Resp B/P Pulse Ox O2 Delivery O2 Flow Rate FiO2 01/12/17 10:49 95 Nasal Cannula 2.00 01/12/17 08:18 97.6 77 20 137/66 95 01/12/17 08:05 86 01/11/17 23:22 98.1 80 17 102/51 94 01/11/17 20:20 93 Nasal Cannula 2.00 01/11/17 19:34 87 01/11/17 19:25 98.4 87 18 130/63 92 01/11/17 16:11 93 Nasal Cannula 2.00 01/11/17 14:51 97.7 118 18 155/84 95 01/11/17 13:57 94 01/11/17 13:43 97.5 113 22 160/93 88 01/11/17 12:14 94 Room Air 01/11/17 12:14 94 Room Air I/O 01/11/17 01/11/17 01/11/17 01/12/17 01/12/17 01/12/17 07:00 15:00 23:00 07:00 15:00 23:00 Intake Total 240 ml Balance 240 ml Intake Oral 240 ml # Voids 1 1 # Bowel Movements 1 Result Diagram: 01/12/17 0733 01/12/17 0733 Imaging Last Impressions Chest X-Ray 01/11/17 1100 Signed Impressions: Service Date/Time: Wednesday, January 11, 2017 11:13 - CONCLUSION: Pulmonary venous congestion with small bilateral effusions. Mild bibasilar infiltrates which are new compared to the prior study. Checo Ybarra MD Thoracic Spine CT 01/11/17 0000 Signed Impressions: Service Date/Time: Wednesday, January 11, 2017 15:13 - CONCLUSION: No acute abnormality is seen in the thoracic spine. Bilateral pleural effusions are present. Edu Chang MD Cervical Spine CT 01/11/17 0000 Signed Impressions: Service Date/Time: Wednesday, January 11, 2017 15:13 - CONCLUSION: 1. No acute bony abnormality is seen. 2. Degenerative change at multiple levels as described above. Edu Chang MD Objective Remarks GENERAL: Well-nourished, well-developed elderly female patient in [facility]. SKIN: Warm and dry. No rash. HEENT: Normocephalic. Atraumatic.Pupils equal and round. Mucous membranes pink and moist. NECK: Supple. Trachea midline. CARDIOVASCULAR: Regular rate and rhythm. S1, S2 noted. No murmur appreciated. RESPIRATORY: No accessory muscle use. Decreased breath sounds at bilateral bases. Breath sounds equal bilaterally. GASTROINTESTINAL: Abdomen soft, non-tender, nondistended. Normoactive bowel sounds x4. MUSCULOSKELETAL: No obvious deformities. Extremities without clubbing, cyanosis , or edema. NEUROLOGICAL: Awake and alert. No obvious cranial nerve deficits. Motor grossly within normal limits. Normal speech. PSYCHIATRIC: Appropriate mood and affect; insight and judgment normal. Medications and IVs Current Medications Medications (Trade) Dose Ordered Sig/Ricky Route Start Time Stop Time Status Last Admin (Synthroid) 50 mcg DAILY@06 PO 01/12/17 06:00 01/12/17 05:53 (Lopressor) 100 mg BID PO 01/11/17 21:00 01/12/17 08:07 (Coumadin) 2 mg DAILY@1600 PO 01/12/17 16:00 (NS Flush) 2 ml UNSCH PRN IV FLUSH 01/11/17 12:30 01/11/17 17:51 (NS Flush) 2 ml BID IV FLUSH 01/11/17 21:00 01/12/17 08:06 (Tylenol) 650 mg Q4H PRN PO 01/11/17 12:30 (Zofran Inj) 4 mg Q6H PRN IVP 01/11/17 12:30 (Narcan Inj) 0.4 mg UNSCH PRN IV 01/11/17 12:30 (Hansa-Colace) 1 tab BID PO 01/11/17 21:00 01/12/17 08:07 (Milk Of Magnesia Liq) 30 ml Q12H PRN PO 01/11/17 12:30 (Senokot) 17.2 mg Q12H PRN PO 01/11/17 12:30 (Dulcolax Supp) 10 mg DAILY PRN RECTAL 01/11/17 12:30 (Lactulose Liq) 30 ml DAILY PRN PO 01/11/17 12:30 (Carafate Liq) 1 gm ACHS PO 01/11/17 16:00 01/12/17 11:59 ([place] 5-325 Mg) 1 tab Q4H PRN PO 01/11/17 15:00 (Mucinex Er) 600 mg BID PO 01/11/17 15:00 01/12/17 08:06 (Megace Liq) 400 mg DAILY PO 01/11/17 15:00 01/12/17 08:06 (Valium) 2 mg Q12HR PO 01/11/17 21:00 01/12/17 08:07 (Cardizem) 60 mg QID PO 01/11/17 18:00 01/12/17 12:00 (KCl) 20 meq Q12HR PO 01/11/17 21:00 01/12/17 08:07 A/P Assessment and Plan 86-year-old female with history of atrial fibrillation on Coumadin, CHF, pacemaker, HTN, GERD, hypothyroidism, presents with worsening shortness of breath. Acute CHF exacerbation: CXR images reviewed, shows pulmonary venous congestion with small bilateral effusions; mild bibasilar infiltrates which are new. BNP elevated at 1577. Doubt PE with therapeutic INR on Coumadin. Cardiology consulted. Given IV Lasix 40 mg twice a day, however now discontinued by cardiology secondary to worsening renal function. No recent echo on file since 2012, Echocardiogram ordered. Await further recommendations by Dr. Jansen tomorrow. Patient does not wear oxygen at home, will wean, consider home O2 walk test in am. Atrial Fibrillation on Coumadin: INR therapeutic at 2.0. Continue Coumadin, Metoprolol, and Cardizem. Monitor on telemetry. Monitor daily INR. Hypertension: chronic, continue patient's home medications. monitor BP, adjust antihypertensives as needed. Hypothyroidism: chronic, continue patient's Synthroid. DVT Prophylaxis: on Coumadin Discharge Planning Discharge pending further clinical improvement, echocardiogram, and evaluation by patient's [employer] [address] teacher [address] Jansen. Crystal Faith PA-C Jan 12, 2017 12:22
[2017-01-12] MEDS: WARFARIN SOD 2 MG TAB PO SCH (15:38)
[2017-01-13] VITALS (9 sets, daily range): BP systolic 108–139; BP diastolic 57–69; PULSE 76–99; RESP 18–24; TEMP 97.4–98.1; O2SAT 90–96
[2017-01-13] MEDS: RESP: IPRATROPIUM 0.5 MG/2.5 ML NEB NEB SCH ×5 (03:33→19:18)
[2017-01-13] MEDS: SUCRALFATE 1 GM/10 ML CUP PO SCH ×4 (06:05→23:58)
[2017-01-13] MEDS: LEVOTHYROXINE SODIUM 50 MCG TAB PO SCH (06:05)
[2017-01-13 07:43] LABS: BASOPHIL % 0.4 % (0.0-2.0); EOSINOPHIL # 0.4 TH/MM3 (0-0.4); EOSINOPHIL % 4.3 % (0.0-4.0); HEMATOCRIT 29.1 % (35.0-46.0); HEMO FLAGS DIFF FINAL; LYMPH % 18.7 % (9.0-44.0); LYMPHOCYTE # 1.6 TH/MM3 (1.0-4.8); MEAN CELL VOLUME 84.4 FL (80.0-100.0); MEAN CORPUSCULAR HGB CONC 33.1 % (32.0-36.0); MONO % 7.5 % (0.0-8.0); NEUT % 69.1 % (16.0-70.0); PLATELET COUNT 146 TH/MM3 (150-450); RED BLOOD COUNT 3.45 MIL/MM3 (4.00-5.30); RED CELL DISTRIBUTION WIDTH 15.1 % (11.6-17.2); WHITE BLOOD COUNT 8.6 TH/MM3 (4.0-11.0)
[2017-01-13 07:51] LABS: INTERNATIONAL NORMALIZED RATIO 1.8 RATIO; PROTHROMBIN TIME - PATIENT 20.1 SEC (9.8-11.6)
[2017-01-13 08:07] LABS: BICARBONATE 28.7 MEQ/L (21.0-32.0); POTASSIUM 4.6 MEQ/L (3.5-5.1)
[2017-01-13] MEDS: METOPROLOL TARTRATE 100 MG TAB PO SCH ×2 (09:26→23:58)
[2017-01-13] MEDS: DILTIAZEM HCL 60 MG TAB PO SCH (09:26)
[2017-01-13] MEDS: DOCUSATE SODIUM 50 MG/SENNA 8.6 MG TAB PO SCH ×2 (09:26→23:58)
[2017-01-13] MEDS: MEGESTROL ACETATE SUSP 400 MG/10 ML CUP PO SCH (09:27)
[2017-01-13] MEDS: guaiFENesin E.R. 600 MG TAB PO SCH ×2 (09:27→23:58)
[2017-01-13] MEDS: SODIUM CHLORIDE 0.9% FLUSH 10 ML FLUSH IV FLUSH SCH ×2 (09:28→23:59)
[2017-01-13] MEDS: DIAZEPAM 2 MG TAB PO SCH ×2 (09:43→23:59)
--- NOTE | 2017-01-13 09:57 | PD.CARD.PN ---
Subjective Subjective Remarks Continued dyspnea, overall improved. No CP, dizziness, palpitations, PND. Objective Medications Item Value Date Time Warfarin Sodium 2 mg 01/12/17 1600 (Coumadin) DAILY@1600/PO 01/12/17 1538 Metoprolol 100 mg 01/11/17 2100 Tartrate BID/PO 01/13/17 09 (Lopressor) Diltiazem HCl 60 mg 01/11/17 1800 (Cardizem) QID/PO 01/13/17 0926 Vital Signs / I&O Vital Signs Date Time Temp Pulse Resp B/P Pulse Ox O2 Delivery O2 Flow Rate FiO2 01/13/17 07:54 97.9 78 21 139/68 90 01/13/17 07:28 92 Nasal Cannula 2.00 01/13/17 04:20 97.7 96 18 108/57 96 01/12/17 23:47 97.4 75 18 117/59 96 01/12/17 20:22 92 01/12/17 19:59 97.7 71 18 113/61 99 01/12/17 19:40 95 2.00 01/12/17 17:14 98.2 73 20 115/73 95 01/12/17 14:08 77 01/12/17 12:17 97.9 120 18 138/68 96 01/12/17 10:49 95 Nasal Cannula 2.00 I/O 01/12/17 01/12/17 01/12/17 01/13/17 01/13/17 01/13/17 07:00 15:00 23:00 07:00 15:00 23:00 Intake Total 240 ml Balance 240 ml Intake Oral 240 ml # Voids 1 1 # Bowel Movements 1 Physical Exam GENERAL: Well developed, well nourished. No acute distress. HEENT: Jugular venous pressure is normal. CHEST: Lungs clear to auscultation bilaterally. Unlabored respiratory effort. CARDIAC: Irregular rate and rhythm without S3, S4, or murmur. ABDOMEN: Soft, nontender, no hepatosplenomegaly. Bowel sounds present. EXTREMITIES: No clubbing, cyanosis, or edema. Laboratory Laboratory Tests Test 01/13/17 07:05 White Blood Count 8.6 TH/MM3 Red Blood Count 3.45 MIL/MM3 Hemoglobin 9.6 GM/DL Hematocrit 29.1 % Mean Corpuscular Volume 84.4 FL Mean Corpuscular Hemoglobin 28.0 PG Mean Corpuscular Hemoglobin 33.1 % Concent Red Cell Distribution Width 15.1 % Platelet Count 146 TH/MM3 Mean Platelet Volume 10.1 FL Neutrophils (%) (Auto) 69.1 % Lymphocytes (%) (Auto) 18.7 % Monocytes (%) (Auto) 7.5 % Eosinophils (%) (Auto) 4.3 % Basophils (%) (Auto) 0.4 % Neutrophils # (Auto) 6.0 TH/MM3 Lymphocytes # (Auto) 1.6 TH/MM3 Monocytes # (Auto) 0.6 TH/MM3 Eosinophils # (Auto) 0.4 TH/MM3 Basophils # (Auto) 0.0 TH/MM3 CBC Comment DIFF FINAL Differential Comment Prothrombin Time 20.1 SEC Prothromb Time International 1.8 RATIO Ratio Sodium Level 137 MEQ/L Potassium Level 4.6 MEQ/L Chloride Level 101 MEQ/L Carbon Dioxide Level 28.7 MEQ/L Anion Gap 7 MEQ/L Blood Urea Nitrogen 36 MG/DL Creatinine 1.48 MG/DL Estimat Glomerular Filtration 33 ML/MIN Rate Random Glucose 105 MG/DL Calcium Level 8.8 MG/DL B-Type Natriuretic Peptide 417 PG/ML Imaging Last 48 hours Impressions Chest X-Ray 01/11/17 1100 Signed Impressions: Service Date/Time: Wednesday, January 11, 2017 11:13 - CONCLUSION: Pulmonary venous congestion with small bilateral effusions. Mild bibasilar infiltrates which are new compared to the prior study. Checo Ybarra MD Assessment and Plan Problem List: (1) CHF (congestive heart failure) Assessment and Plan: Symptomatically minimally improved. Unfortunately I's, O' s incomplete. Probably needs additional diuresis. Rec additional IV Lasix today. Increase ambulation. CHF possibly precipitated by diastolic dysfunction with superimposed recurrent atrial fib and loss of atrial contribution to left ventricular filling. Cont metoprolol/diltiazem. (2) Atrial fibrillation Assessment and Plan: Appears to remains in atrial fib with ventricular demand pacing. Rec start Amiodarone to help maintain sinus rhythm. By pacer electrograms past few months, atrial arrhythmia burden had been very low. Cont warfarin. INR acceptable. (3) HTN (hypertension) Assessment and Plan: Stable. Normotensive. (4) Nonsustained ventricular tachycardia Assessment and Plan: No recurrent significant VT since 2012. Cont beta chip. Await repeat echo. EF in 2014 was 60%. (5) History of cardiac pacemaker Code Status full code Discussed Condition With patient Problem Qualifiers (1) CHF (congestive heart failure): Qualified Code: I50.33 - Acute on chronic diastolic congestive heart failure (2) Atrial fibrillation: Qualified Code: I48.0 - Paroxysmal atrial fibrillation (3) HTN (hypertension): Qualified Code: I10 - Essential hypertension Demetris Jansen MD Jan 13, 2017 09:57
[2017-01-13] MEDS: AMIODARONE 200 MG TAB PO SCH ×2 (10:00→23:58)
[2017-01-13] MEDS ORDERED: FUROSEMIDE 40 MG/4 ML VIAL IV PUSH ONE (10:00)
[2017-01-13] MEDS: DILTIAZEM-CD 240 MG CAP ER PO SCH (10:00)
--- NOTE | 2017-01-13 12:06 | HHI.PR ---
Subjective Remarks Not yet tolerant of ambulation without onset of dyspnea. She says at baseline she is not typically short of breath when she ambulates. Diuresis and process. Patient does have some evidence of acute kidney injury with diuresis so this would be safest to monitor inpatient until fluid is balanced and renal function is ensured to be stable. No other new complaints today. Objective Vital Signs Date Time Temp Pulse Resp B/P Pulse Ox O2 Delivery O2 Flow Rate FiO2 01/13/17 11:57 97.4 99 19 114/63 95 01/13/17 07:54 97.9 78 21 139/68 90 01/13/17 07:28 92 Nasal Cannula 2.00 01/13/17 04:20 97.7 96 18 108/57 96 01/12/17 23:47 97.4 75 18 117/59 96 01/12/17 20:22 92 01/12/17 19:59 97.7 71 18 113/61 99 01/12/17 19:40 95 2.00 01/12/17 17:14 98.2 73 20 115/73 95 01/12/17 14:08 77 01/12/17 12:17 97.9 120 18 138/68 96 I/O 01/12/17 01/12/17 01/12/17 01/13/17 01/13/17 01/13/17 07:00 15:00 23:00 07:00 15:00 23:00 Intake Total 240 ml Balance 240 ml Intake Oral 240 ml # Voids 1 1 # Bowel Movements 1 Result Diagram: 01/13/1770401/13/17704 Objective Remarks GENERAL: NAD, A&Ox3 HEAD: Normocephalic. NECK: Supple, trachea midline. No lymphadenopathy. EYES: No scleral icterus. No injection or drainage. CARDIOVASCULAR: Regular rate and rhythm without murmurs, gallops, or rubs. RESPIRATORY: Breath sounds equal bilaterally. No accessory muscle use. Crackles bilaterally at bases. GASTROINTESTINAL: Abdomen soft, non-tender, nondistended. MUSCULOSKELETAL: No cyanosis, or edema. SKIN: Warm and dry. NEURO: No focal neurological deficitis. Medications and IVs Administered Medications Medications (Trade) Dose Ordered Sig/Ricky Route PRN Reason Start Time Stop Time Status Last Admin Dose Admin Levothyroxine Sodium (Synthroid) 50 mcg DAILY@06 PO 01/12/17 06:00 01/13/17 06:05 Metoprolol Tartrate (Lopressor) 100 mg BID PO 01/11/17 21:00 01/13/17 09:26 Warfarin Sodium (Coumadin) 2 mg DAILY@1600 PO 01/12/17 16:00 01/12/17 15:38 Sodium Chloride (NS Flush) 2 ml UNSCH PRN IV FLUSH FLUSH AFTER USING IV ACCESS 01/11/17 12:30 01/11/17 17:51 Sodium Chloride (NS Flush) 2 ml BID IV FLUSH 01/11/17 21:00 01/13/17 09:28 Senna/Docusate Sodium (Hansa-Colace) 1 tab BID PO 01/11/17 21:00 01/13/17 09:26 Sucralfate (Carafate Liq) 1 gm ACHS PO 01/11/17 16:00 01/13/17 06:05 Guaifenesin (Mucinex Er) 600 mg BID PO 01/11/17 15:00 01/13/17 09:27 Megestrol Acetate (Megace Liq) 400 mg DAILY PO 01/11/17 15:00 01/13/17 09:27 Diazepam (Valium) 2 mg Q12HR PO 01/11/17 21:00 01/13/17 09:43 A/P Problem List: (1) CHF (congestive heart failure) ICD Code: I50.9 (2) Acute kidney injury ICD Code: N17.9 Assessment and Plan Assessment and Plan 6-year-old female admitted for CHF exacerbation, hypoxia, and weakness. Baseline history of atrial fibrillation, on Coumadin and CHF, pacemaker, hypertension, GERD, hypothyroidism. Acute CHF exacerbation Continue diuresis Follow renal function Follow clinically for improvement in shortness of breath Cardiology following Acute kidney injury Underlying chronic kidney disease contributory Continue diuresis and follow renal function for now Unstable for outpatient management Atrial fibrillation Continue Coumadin Follow INR Telemetry Hypertension Continue baseline treatments Follow blood pressure Adjust as needed Hypothyroidism Continue Synthroid DVT Prophylaxis Coumadin continued, follow INR Problem Qualifiers (1) CHF (congestive heart failure): Qualified Code: I50.33 - Acute on chronic diastolic congestive heart failure Sam Burton MD Jan 13, 2017 12:06 pm
--- NOTE | 2017-01-13 15:21 | ECHRPT ---
Indication: HEART FAILURE CONCLUSIONS The left ventricular systolic function is severely reduced with an estimated ejection fraction in th e range of 30-35%. There is global left ventricular dysfunction. Brqdexhg-[id number]-[id number] mitral valve regurgitation. Trace aortic valve regurgitation. There is moderate to severe tricuspid valve regurgitation. Pacemaker wire is noted in RV. Pacemaker wire present in the right atrial cavity. BP: 108 / 57 HR: Rhythm: MEASUREMENTS (Male / Female) Normal Values Technical Quality: 2D ECHO LV Diastolic Diameter PLAX 4.7 cm 4.2 - 5.9 / 3.9 - 5.3 cm LV Systolic Diameter PLAX 4.2 cm IVS Diastolic Thickness 1.2 cm 0.6 - 1.0 / 0.6 - 0.9 cm LVPW Diastolic Thickness 1.1 cm 0.6 - 1.0 / 0.6 - 0.9 cm LV Relative Wall Thickness 0.5 RV Internal Dim ED PLAX 2.7 cm M-MODE Aortic Root Diameter MM 3.0 cm LA Systolic Diameter MM 3.9 cm LA Ao Ratio MM 1.3 AV Cusp Separation MM 1.6 cm DOPPLER Mitral E Point Velocity 71.8 cm/s Mitral A Point Velocity 22.2 cm/s Mitral E to A Ratio 3.2 LV E' Lateral Velocity 8.0 cm/s Mitral E to LV E' Lateral Ratio 9.0 TR Peak Velocity 282.0 cm/s TR Peak Gradient 31.8 mmHg FINDINGS LEFT VENTRICLE Normal left ventricular size. Wall thickness is measured at the upper limits of normal. The left ventricular systolic function is severely reduced with an estimated ejection fraction in th e range of 30-35%. There is global left ventricular dysfunction. RIGHT VENTRICLE Normal right ventricular size Pacemaker wire is noted in RV. LEFT ATRIUM The left atrial size is mildly dilated. RIGHT ATRIUM The right atrial size is mildly dilated. There is a pacemaker wire present in the right atrial cavity. ATRIAL SEPTUM The interatrial septum not well visualized. AORTA The aortic root and proximal ascending aorta are not well visualized. MITRAL VALVE Structurally normal mitral valve. Mild mitral annular calcification. Btzfzxuh-[id number]-liqxkh mitral valve regurgitation. AORTIC VALVE Trileaflet aortic valve. No aortic valve stenosis or regurgitation. No aortic Stenosis Trace aortic valve regurgitation. TRICUSPID VALVE Structurally normal tricuspid valve. No tricuspid valve stenosis There is moderate to severe tricuspid valve regurgitation. PULMONARY VALVE The pulmonary valve is not well visualized. VESSELS The inferior vena cava is normal in size. PERICARDIUM No pericardial effusion. Vincent G. Pack DO (Electronically Signed) Final Date:13 January 2017 15:20
[2017-01-13] MEDS: WARFARIN SOD 2 MG TAB PO SCH (17:36)
[2017-01-14] VITALS (10 sets, daily range): BP systolic 100–122; BP diastolic 57–65; PULSE 60–107; RESP 16–18; TEMP 97.4–98.5; O2SAT 86–96
[2017-01-14] MEDS: RESP: IPRATROPIUM 0.5 MG/2.5 ML NEB NEB SCH ×6 (00:11→20:54)
[2017-01-14] MEDS: SUCRALFATE 1 GM/10 ML CUP PO SCH ×4 (05:45→22:54)
[2017-01-14] MEDS: LEVOTHYROXINE SODIUM 50 MCG TAB PO SCH (05:45)
--- NOTE | 2017-01-14 09:16 | PD.CARD.PN ---
Subjective Subjective Remarks Mildly dyspneic just ambulating in room. No CP, dizziness, palpitations, PND, nausea, abdominal pain. Slept poorly. Objective Medications Item Value Date Time Diltiazem HCl 240 mg 01/13/17 1000 (Cardizem Cd) DAILY/PO 01/13/17 1000 Amiodarone HCl 400 mg 01/13/17 1000 (Cordarone) Q12HR/PO 01/13/17 2358 Warfarin Sodium 2 mg 01/12/17 1600 (Coumadin) DAILY@1600/PO 01/13/17 1736 Metoprolol 100 mg 01/11/17 2100 Tartrate BID/PO 01/13/17 2358 (Lopressor) Vital Signs / I&O Vital Signs Date Time Temp Pulse Resp B/P Pulse Ox O2 Delivery O2 Flow Rate FiO2 01/14/17 08:48 95 Nasal Cannula 2.00 01/14/17 07:48 80 01/14/17 04:00 97.9 100 18 100/65 95 01/14/17 00:00 98.3 93 18 122/62 91 01/13/17 21:48 97.9 76 18 124/69 95 01/13/17 20:23 98.1 92 18 114/58 96 01/13/17 19:22 92 Nasal Cannula 3.00 01/13/17 16:12 97.5 99 24 129/65 94 01/13/17 11:57 97.4 99 19 114/63 95 I/O 01/13/17 01/13/17 01/13/17 01/14/17 01/14/17 01/14/17 07:00 15:00 23:00 07:00 15:00 23:00 Intake Total 200 ml Balance 200 ml Intake Oral 200 ml # Voids 1 1 # Bowel Movements 1 Physical Exam GENERAL: Well developed, well nourished. No acute distress. HEENT: Jugular venous pressure is normal. CHEST: Diminished breath sounds diffusely, especially bases. CARDIAC: Irregular rate and rhythm without S3, S4, or murmur. ABDOMEN: Soft, nontender, no hepatosplenomegaly. Bowel sounds present. EXTREMITIES: No clubbing, cyanosis, or edema. Assessment and Plan Problem List: (1) CHF (congestive heart failure) Assessment and Plan: Symptomatically minimally improved. Unfortunately I's, O' s incomplete. Weight apparently down 2.2 kg since admission. EF reportedly down to 30-35% by echo with moderate to severe mitral regurgitation. Rec recheck CXR, consider further diuresis continue beta chip, no MIHAI-I or ARB with relatively low BP and renal insufficiency (2) Atrial fibrillation Assessment and Plan: Appears to remains in atrial fib with ventricular demand pacing. Now on oral Amiodarone to help maintain sinus rhythm. By pacer electrograms past few months, atrial arrhythmia burden had been very low. Cont warfarin. (3) HTN (hypertension) Assessment and Plan: Stable. Normotensive. (4) Nonsustained ventricular tachycardia Assessment and Plan: No recurrent significant VT since 2012. Cont beta chip , Amiodarone. EF in 2014 was 60%, now 30-35%. (5) History of cardiac pacemaker Code Status full code Discussed Condition With patient Problem Qualifiers (1) CHF (congestive heart failure): Qualified Code: I50.21 - Acute systolic congestive heart failure (2) Atrial fibrillation: Qualified Code: I48.0 - Paroxysmal atrial fibrillation (3) HTN (hypertension): Qualified Code: I10 - Essential hypertension Demetris Jansen MD Jan 14, 2017 09:16
[2017-01-14] MEDS ORDERED: FUROSEMIDE 40 MG/4 ML VIAL IV PUSH ONE ×2 (09:30→12:15)
[2017-01-14] MEDS: MEGESTROL ACETATE SUSP 400 MG/10 ML CUP PO SCH (09:34)
[2017-01-14] MEDS: SODIUM CHLORIDE 0.9% FLUSH 10 ML FLUSH IV FLUSH SCH ×2 (09:35→22:54)
[2017-01-14] MEDS: guaiFENesin E.R. 600 MG TAB PO SCH ×2 (09:35→22:54)
[2017-01-14] MEDS: DOCUSATE SODIUM 50 MG/SENNA 8.6 MG TAB PO SCH ×2 (09:35→22:54)
[2017-01-14] MEDS: AMIODARONE 200 MG TAB PO SCH ×2 (09:35→22:54)
[2017-01-14] MEDS: METOPROLOL TARTRATE 100 MG TAB PO SCH ×2 (09:35→22:54)
[2017-01-14] MEDS: DILTIAZEM-CD 240 MG CAP ER PO SCH (09:35)
[2017-01-14 10:18] LABS: INTERNATIONAL NORMALIZED RATIO 2.2 RATIO
--- NOTE | 2017-01-14 10:28 | HHI.PR ---
Subjective Remarks Slight improvement in dyspnea with exertion. Pulmonary edema remains. Oxygen dependence remains. Less aggressive diuresis needed due to chronic renal disease and associated renal risks with dehydration. Objective Vital Signs Date Time Temp Pulse Resp B/P Pulse Ox O2 Delivery O2 Flow Rate FiO2 01/14/17 08:48 95 Nasal Cannula 2.00 01/14/17 08:03 98.5 107 16 108/58 95 01/14/17 07:48 80 01/14/17 04:00 97.9 100 18 100/65 95 01/14/17 00:00 98.3 93 18 122/62 91 01/13/17 21:48 97.9 76 18 124/69 95 01/13/17 20:23 98.1 92 18 114/58 96 01/13/17 19:22 92 Nasal Cannula 3.00 01/13/17 16:12 97.5 99 24 129/65 94 01/13/17 11:57 97.4 99 19 114/63 95 I/O 01/13/17 01/13/17 01/13/17 01/14/17 01/14/17 01/14/17 07:00 15:00 23:00 07:00 15:00 23:00 Intake Total 200 ml Balance 200 ml Intake Oral 200 ml # Voids 1 1 # Bowel Movements 1 Result Diagram: 01/13/1770401/13/17704 Objective Remarks GENERAL: NAD, A&Ox3 HEAD: Normocephalic. NECK: Supple, trachea midline. No lymphadenopathy. EYES: No scleral icterus. No injection or drainage. CARDIOVASCULAR: Regular rate and rhythm without murmurs, gallops, or rubs. RESPIRATORY: Breath sounds equal bilaterally. No accessory muscle use. Crackles bilaterally at bases. GASTROINTESTINAL: Abdomen soft, non-tender, nondistended. MUSCULOSKELETAL: No cyanosis, or edema. SKIN: Warm and dry. NEURO: No focal neurological deficitis. A/P Problem List: (1) CHF (congestive heart failure) ICD Code: I50.9 (2) Acute kidney injury ICD Code: N17.9 Assessment and Plan Assessment and Plan 6-year-old female admitted for CHF exacerbation, hypoxia, and weakness. Baseline history of atrial fibrillation, on Coumadin and CHF, pacemaker, hypertension, GERD, hypothyroidism. Slowlyl improving. Monitor renal function. Continue diuresis. Acute CHF exacerbation Continue diuresis Follow renal function Follow clinically for improvement in shortness of breath Cardiology following Acute kidney injury Underlying chronic kidney disease contributory Continue diuresis and follow renal function for now Unstable for outpatient management Atrial fibrillation Continue Coumadin Follow INR Telemetry Hypertension Continue baseline treatments Follow blood pressure Adjust as needed Hypothyroidism Continue Synthroid DVT Prophylaxis Coumadin continued, follow INR Problem Qualifiers (1) CHF (congestive heart failure): Qualified Code: I50.21 - Acute systolic congestive heart failure Sam Burton MD Jan 14, 2017 10:28 am
--- NOTE | 2017-01-14 10:41 | RADRPT ---
EXAM DATE/TIME: 01/14/2017 09:56 [facility] COMPARISON: CHEST SINGLE AP, January 11, 2017, 11:13. INDICATIONS : Difficulty breathing. MEDICAL HISTORY : Cardiovascular disease. Chronic obstructive pulmonary disease. SURGICAL HISTORY : None. ENCOUNTER: Subsequent ACUITY: 3 days PAIN SCORE: 0/10 LOCATION: Bilateral chest FINDINGS: The heart remains stable. A small left pleural effusion and tiny right pleural effusion are noted. Bibasilar infiltrates are unchanged. Degenerative changes and scoliosis of the thoracic spine are st able. CONCLUSION: 1. Small left pleural effusion and tiny right pleural effusion. 2. Bibasilar infiltrates are stable. 3. Cardiomegaly. 4. Degenerative change and scoliosis of the thoracic spine. Julian Soliz MD on January 14, 2017 at 10:30 Board Certified Radiologist. This report was verified electronically.
[2017-01-14 11:22] LABS: BICARBONATE 27.7 MEQ/L (21.0-32.0); MAGNESIUM 1.8 MG/DL (1.5-2.5); POTASSIUM 4.2 MEQ/L (3.5-5.1)
[2017-01-14] MEDS: DIAZEPAM 2 MG TAB PO SCH ×2 (11:39→22:53)
[2017-01-14] MEDS: WARFARIN SOD 2 MG TAB PO SCH (16:12)
[2017-01-14] MEDS: ONDANSETRON HCL 4 MG/2 ML VIAL IVP PRN (18:23)
[2017-01-15] VITALS (11 sets, daily range): BP systolic 99–132; BP diastolic 50–64; PULSE 61–64; RESP 16–21; TEMP 97.3–98.4; O2SAT 86–100
[2017-01-15] MEDS: RESP: IPRATROPIUM 0.5 MG/2.5 ML NEB NEB SCH ×6 (04:46→23:39)
[2017-01-15] MEDS: LEVOTHYROXINE SODIUM 50 MCG TAB PO SCH (06:55)
[2017-01-15] MEDS: SUCRALFATE 1 GM/10 ML CUP PO SCH ×4 (06:55→23:09)
[2017-01-15 08:08] LABS: INTERNATIONAL NORMALIZED RATIO 2.7 RATIO; PROTHROMBIN TIME - PATIENT 30.8 SEC (9.8-11.6)
--- NOTE | 2017-01-15 08:25 | PD.CARD.PN ---
Subjective Subjective Remarks Dyspnea better. No PND, dizziness, palpitations. Mild nausea before dinner last night, none now. No constipation, abdominal pain. Objective Medications Item Value Date Time Diltiazem HCl 240 mg 01/13/17 1000 (Cardizem Cd) DAILY/PO 01/14/17 0935 Amiodarone HCl 400 mg 01/13/17 1000 (Cordarone) Q12HR/PO 01/14/17 2254 Warfarin Sodium 2 mg 01/12/17 1600 (Coumadin) DAILY@1600/PO 01/14/17 1612 Metoprolol 100 mg 01/11/17 2100 Tartrate BID/PO 01/14/17 2254 (Lopressor) Vital Signs / I&O Vital Signs Date Time Temp Pulse Resp B/P Pulse Ox O2 Delivery O2 Flow Rate FiO2 01/15/17 04:47 92 Nasal Cannula 2.00 01/15/17 04:00 98.4 63 16 100/50 90 01/15/17 04:00 Nasal Cannula 2.00 01/15/17 00:00 98.0 64 16 99/56 96 01/15/17 00:00 Nasal Cannula 2.00 01/14/17 20:57 92 Nasal Cannula 2.00 01/14/17 20:30 94 Nasal Cannula 2.00 01/14/17 20:18 63 01/14/17 20:00 97.6 61 16 110/57 86 01/14/17 20:00 Room Air 01/14/17 16:00 Room Air 01/14/17 12:03 97.4 60 16 121/59 96 01/14/17 12:00 Room Air 01/14/17 09:10 Room Air 01/14/17 08:48 95 Nasal Cannula 2.00 I/O 01/14/17 01/14/17 01/14/17 01/15/17 01/15/17 01/15/17 07:00 15:00 23:00 07:00 15:00 23:00 Intake Total 12 ml Output Total 0 ml Balance 12 ml 0 ml IV Total 12 ml Output Urine Total 0 ml # Voids 1 0 # Bowel Movements 1 Physical Exam GENERAL: Well developed, well nourished. No acute distress. HEENT: Jugular venous pressure is normal. CHEST: Diminished breath sounds bases. CARDIAC: Irregular rate and rhythm without S3, S4, or murmur. ABDOMEN: Soft, nontender, no hepatosplenomegaly. Bowel sounds present. EXTREMITIES: No clubbing, cyanosis, or edema. Laboratory Laboratory Tests Test 01/14/17 01/15/17 09:49 06:55 Prothrombin Time 25.0 SEC 30.8 SEC Prothromb Time International 2.2 RATIO 2.7 RATIO Ratio Sodium Level 135 MEQ/L Potassium Level 4.2 MEQ/L Chloride Level 99 MEQ/L Carbon Dioxide Level 27.7 MEQ/L Anion Gap 8 MEQ/L Blood Urea Nitrogen 42 MG/DL Creatinine 1.45 MG/DL Estimat Glomerular Filtration 34 ML/MIN Rate Random Glucose 104 MG/DL Calcium Level 9.4 MG/DL Magnesium Level 1.8 MG/DL Assessment and Plan Problem List: (1) CHF (congestive heart failure) Assessment and Plan: Slowly improving. Less dyspneic today. Unfortunately I's , O's incomplete. Weight apparently down ~2.2 kg since admission. EF reportedly down to 30-35% by echo with moderate to severe mitral regurgitation. Rec increase ambulation continue beta chip, no MIHAI-I or ARB with relatively low BP and renal insufficiency (2) Atrial fibrillation Assessment and Plan: Appears to be back in AV paced rhythm. Now on oral Amiodarone to help maintain sinus rhythm. By pacer electrograms past few months , atrial arrhythmia burden had been very low. Cont warfarin. INR up to 2.7--- > rec drop warfarin dose to 1 mg qd, and will drop Amiodarone dose to 400 mg qd. (3) HTN (hypertension) Assessment and Plan: Stable. Normotensive. (4) Nonsustained ventricular tachycardia Assessment and Plan: No recurrent significant VT since 2012. Cont beta chip , Amiodarone. EF in 2013 was 60%, now 30-35%. (5) History of cardiac pacemaker Code Status full code Discussed Condition With patient Problem Qualifiers (1) CHF (congestive heart failure): Qualified Code: I50.21 - Acute systolic congestive heart failure (2) Atrial fibrillation: Qualified Code: I48.0 - Paroxysmal atrial fibrillation (3) HTN (hypertension): Qualified Code: I10 - Essential hypertension Demetris Jansen MD Jan 15, 2017 08:25
[2017-01-15] MEDS: DILTIAZEM-CD 240 MG CAP ER PO SCH (08:45)
[2017-01-15] MEDS: guaiFENesin E.R. 600 MG TAB PO SCH ×2 (08:45→23:09)
[2017-01-15] MEDS: DOCUSATE SODIUM 50 MG/SENNA 8.6 MG TAB PO SCH ×2 (08:45→23:09)
[2017-01-15] MEDS: METOPROLOL TARTRATE 100 MG TAB PO SCH ×2 (08:45→23:09)
[2017-01-15] MEDS: DIAZEPAM 2 MG TAB PO SCH ×2 (08:45→23:09)
[2017-01-15] MEDS: AMIODARONE 200 MG TAB PO SCH (08:46)
[2017-01-15] MEDS: MEGESTROL ACETATE SUSP 400 MG/10 ML CUP PO SCH (08:46)
[2017-01-15] MEDS: SODIUM CHLORIDE 0.9% FLUSH 10 ML FLUSH IV FLUSH SCH ×2 (08:48→23:10)
--- NOTE | 2017-01-15 14:07 | HHI.PR ---
Subjective Remarks Exertional tolerance is improving. Hypoxia is improving also. She is not able to tolerate ambulation of distances further than 5 feet. Objective Vital Signs Date Time Temp Pulse Resp B/P Pulse Ox O2 Delivery O2 Flow Rate FiO2 01/15/17 09:17 92 Nasal Cannula 21 01/15/17 08:35 Nasal Cannula 2.00 01/15/17 08:08 62 01/15/17 08:00 98.4 63 20 116/58 93 01/15/17 04:47 92 Nasal Cannula 2.00 01/15/17 04:00 98.4 63 16 100/50 90 01/15/17 04:00 Nasal Cannula 2.00 01/15/17 00:00 98.0 64 16 99/56 96 01/15/17 00:00 Nasal Cannula 2.00 01/14/17 20:57 92 Nasal Cannula 2.00 01/14/17 20:30 94 Nasal Cannula 2.00 01/14/17 20:18 63 01/14/17 20:00 97.6 61 16 110/57 86 01/14/17 20:00 Room Air 01/14/17 16:00 Room Air I/O 01/14/17 01/14/17 01/14/17 01/15/17 01/15/17 01/15/17 07:00 15:00 23:00 07:00 15:00 23:00 Intake Total 12 ml Output Total 0 ml Balance 12 ml 0 ml IV Total 12 ml Output Urine Total 0 ml # Voids 1 0 # Bowel Movements 1 Result Diagram: 01/13/17 0705 01/14/17 0949 Objective Remarks GENERAL: NAD, A&Ox3 HEAD: Normocephalic. NECK: Supple, trachea midline. No lymphadenopathy. EYES: No scleral icterus. No injection or drainage. CARDIOVASCULAR: Regular rate and rhythm without murmurs, gallops, or rubs. RESPIRATORY: Breath sounds equal bilaterally. No accessory muscle use. Crackles bilaterally at bases. GASTROINTESTINAL: Abdomen soft, non-tender, nondistended. MUSCULOSKELETAL: No cyanosis, or edema. SKIN: Warm and dry. NEURO: No focal neurological deficitis. A/P Problem List: (1) CHF (congestive heart failure) ICD Code: I50.9 (2) Acute kidney injury ICD Code: N17.9 Assessment and Plan Assessment and Plan 6-year-old female admitted for CHF exacerbation, hypoxia, and weakness. Baseline history of atrial fibrillation, on Coumadin and CHF, pacemaker, hypertension, GERD, hypothyroidism. Slowlyl improving. Renal function is worse in baseline but has been stable on the diuretic. Continue diuresis for now. Follow oxygenation in exertional tolerance. Acute CHF exacerbation Continue diuresis Follow renal function Follow clinically for improvement in shortness of breath Cardiology following Acute kidney injury Underlying chronic kidney disease contributory Continue diuresis and follow renal function for now Unstable for outpatient management Atrial fibrillation Continue Coumadin Follow INR Telemetry Hypertension Continue baseline treatments Follow blood pressure Adjust as needed Hypothyroidism Continue Synthroid DVT Prophylaxis Coumadin continued, follow INR Problem Qualifiers (1) CHF (congestive heart failure): Qualified Code: I50.21 - Acute systolic congestive heart failure Sam Burton MD Jan 15, 2017 14:07
[2017-01-15] MEDS: WARFARIN SOD 1 MG TAB PO SCH (16:28)
[2017-01-16] VITALS (9 sets, daily range): BP systolic 118–142; BP diastolic 56–69; PULSE 62–63; RESP 18–20; TEMP 97.4–98.6; O2SAT 92–99
[2017-01-16] MEDS: RESP: IPRATROPIUM 0.5 MG/2.5 ML NEB NEB SCH ×6 (05:17→23:19)
[2017-01-16] MEDS: SUCRALFATE 1 GM/10 ML CUP PO SCH ×4 (06:09→21:43)
[2017-01-16] MEDS: LEVOTHYROXINE SODIUM 50 MCG TAB PO SCH (06:09)
[2017-01-16 07:56] LABS: HEMATOCRIT 27.3 % (35.0-46.0); MEAN CORPUSCULAR HGB CONC 32.9 % (32.0-36.0); PLATELET COUNT 163 TH/MM3 (150-450); RED BLOOD COUNT 3.21 MIL/MM3 (4.00-5.30); RED CELL DISTRIBUTION WIDTH 15.3 % (11.6-17.2); REVIEW FLAG FINAL; WHITE BLOOD COUNT 9.4 TH/MM3 (4.0-11.0)
[2017-01-16 07:57] LABS: PROTHROMBIN TIME - PATIENT 35.4 SEC (9.8-11.6)
[2017-01-16 08:14] LABS: BICARBONATE 28.7 MEQ/L (21.0-32.0); POTASSIUM 4.2 MEQ/L (3.5-5.1)
[2017-01-16] MEDS: guaiFENesin E.R. 600 MG TAB PO SCH ×2 (09:00→21:43)
[2017-01-16] MEDS: SODIUM CHLORIDE 0.9% FLUSH 10 ML FLUSH IV FLUSH SCH ×2 (09:45→21:43)
[2017-01-16] MEDS: MEGESTROL ACETATE SUSP 400 MG/10 ML CUP PO SCH (09:45)
[2017-01-16] MEDS: DOCUSATE SODIUM 50 MG/SENNA 8.6 MG TAB PO SCH ×2 (09:46→21:43)
[2017-01-16] MEDS: DIAZEPAM 2 MG TAB PO SCH ×2 (09:46→21:43)
[2017-01-16] MEDS: DILTIAZEM-CD 240 MG CAP ER PO SCH (09:46)
[2017-01-16] MEDS: METOPROLOL TARTRATE 100 MG TAB PO SCH ×2 (09:46→21:43)
[2017-01-16] MEDS: AMIODARONE 200 MG TAB PO SCH (09:46)
--- NOTE | 2017-01-16 09:58 | PD.CARD.PN ---
Subjective Subjective Remarks Continued dyspnea with exertion though improving. No CP, abdominal pain, nausea , dizziness, palpitations. Objective Medications Item Value Date Time Warfarin Sodium 1 mg 01/15/17 1600 (Coumadin) DAILY@1600/PO 01/15/17 1628 Amiodarone HCl 400 mg 01/15/17 0900 (Cordarone) DAILY/PO 01/16/17 0946 Diltiazem HCl 240 mg 01/13/17 1000 (Cardizem Cd) DAILY/PO 01/16/17 0946 Metoprolol 100 mg 01/11/17 2100 Tartrate BID/PO 01/16/17 0946 (Lopressor) Vital Signs / I&O Vital Signs Date Time Temp Pulse Resp B/P Pulse Ox O2 Delivery O2 Flow Rate FiO2 01/16/17 08:04 97.4 63 18 134/69 95 01/16/17 07:55 95 Nasal Cannula 2.00 01/16/17 07:46 Nasal Cannula 2.00 01/16/17 04:31 97.9 62 18 123/58 99 01/16/17 04:31 Nasal Cannula 2.00 01/16/17 00:00 97.5 63 20 118/56 97 01/16/17 00:00 Nasal Cannula 2.00 01/15/17 23:42 95 Nasal Cannula 2.00 01/15/17 20:00 98.0 62 21 130/61 100 01/15/17 20:00 Nasal Cannula 2.00 01/15/17 20:00 61 01/15/17 16:00 97.5 63 20 132/64 95 01/15/17 16:00 Room Air 01/15/17 15:51 94 Nasal Cannula 2.00 01/15/17 12:00 Nasal Cannula 2.00 01/15/17 12:00 97.3 62 20 125/58 97 I/O 01/15/17 01/15/17 01/15/17 01/16/17 01/16/17 01/16/17 07:00 15:00 23:00 07:00 15:00 23:00 Intake Total 842 ml 600 ml 0 ml Output Total 0 ml 400 ml Balance 0 ml 842 ml 200 ml 0 ml Intake Oral 840 ml 600 ml IV Total 2 ml 0 ml Output Urine Total 0 ml 400 ml # Voids 3 0 # Bowel Movements 0 1 Physical Exam GENERAL: Well developed, well nourished. No acute distress. HEENT: Jugular venous pressure is normal. CHEST: Diminished breath sounds bases. CARDIAC: Rregular rate and rhythm without S3, S4, or murmur. ABDOMEN: Soft, nontender, no hepatosplenomegaly. Bowel sounds present. EXTREMITIES: No clubbing, cyanosis, or edema. Laboratory Laboratory Tests Test 01/16/17 07:05 White Blood Count 9.4 TH/MM3 Red Blood Count 3.21 MIL/MM3 Hemoglobin 9.0 GM/DL Hematocrit 27.3 % Mean Corpuscular Volume 85.0 FL Mean Corpuscular Hemoglobin 28.0 PG Mean Corpuscular Hemoglobin 32.9 % Concent Red Cell Distribution Width 15.3 % Platelet Count 163 TH/MM3 Mean Platelet Volume 9.9 FL Prothrombin Time 35.4 SEC Prothromb Time International 3.0 RATIO Ratio Sodium Level 131 MEQ/L Potassium Level 4.2 MEQ/L Chloride Level 96 MEQ/L Carbon Dioxide Level 28.7 MEQ/L Anion Gap 6 MEQ/L Blood Urea Nitrogen 48 MG/DL Creatinine 1.62 MG/DL Estimat Glomerular Filtration 30 ML/MIN Rate Random Glucose 123 MG/DL Calcium Level 8.8 MG/DL Assessment and Plan Problem List: (1) CHF (congestive heart failure) Assessment and Plan: Continues to improve. Less dyspneic today. EF reportedly down to 30-35% by echo with moderate to severe mitral regurgitation. Renal indices increasing. Rec conservative management given her advanced age, sedentary lifestyle continue beta chip, no MIHAI-I or ARB with her renal insufficiency OK for discharge from my standpoint, 3-4 week f/u with me, very close f/ u of her INR by her PCP (2) Atrial fibrillation Assessment and Plan: Remains in AV paced rhythm. Now on oral Amiodarone to help maintain sinus rhythm. By pacer electrograms past few months, atrial arrhythmia burden had been very low. Cont warfarin. INR up to 3.0. Rec hold warfarin. Will also drop Amiodarone to 200 mg qd, which should be discharge dose. (3) HTN (hypertension) Assessment and Plan: Stable. Normotensive. (4) Nonsustained ventricular tachycardia Assessment and Plan: No recurrent significant VT since 2012. Cont beta chip , Amiodarone. EF in 2014 was 60%, now 30-35%. (5) History of cardiac pacemaker Code Status full code Discussed Condition With patient Problem Qualifiers (1) CHF (congestive heart failure): Qualified Code: I50.21 - Acute systolic congestive heart failure (2) Atrial fibrillation: Qualified Code: I48.0 - Paroxysmal atrial fibrillation (3) HTN (hypertension): Qualified Code: I10 - Essential hypertension Demetirs Jansen MD Jan 16, 2017 09:58
[2017-01-16] MEDS ORDERED: PANTOPRAZOLE SOD 40 MG DELAYED RELEASE TAB PO ONE (11:30)
[2017-01-16] MEDS: ONDANSETRON HCL 4 MG/2 ML VIAL IVP PRN ×2 (12:57→21:45)
--- NOTE | 2017-01-16 15:52 | HHI.PR ---
Subjective Remarks Continued improvement, though slow. Patient has episodes of nausea and vomiting this afternoon. She is doing oxygen weaning. She may need a rehabilitation facility at discharge. Objective Vital Signs Date Time Temp Pulse Resp B/P Pulse Ox O2 Delivery O2 Flow Rate FiO2 01/16/17 15:21 98 21 01/16/17 12:14 98.5 62 18 142/68 92 01/16/17 08:04 97.4 63 18 134/69 95 01/16/17 07:55 95 Nasal Cannula 2.00 01/16/17 07:46 Nasal Cannula 2.00 01/16/17 04:31 97.9 62 18 123/58 99 01/16/17 04:31 Nasal Cannula 2.00 01/16/17 00:00 97.5 63 20 118/56 97 01/16/17 00:00 Nasal Cannula 2.00 01/15/17 23:42 95 Nasal Cannula 2.00 01/15/17 20:00 98.0 62 21 130/61 100 01/15/17 20:00 Nasal Cannula 2.00 01/15/17 20:00 61 01/15/17 16:00 97.5 63 20 132/64 95 01/15/17 16:00 Room Air I/O 01/15/17 01/15/17 01/15/17 01/16/17 01/16/17 01/16/17 07:00 15:00 23:00 07:00 15:00 23:00 Intake Total 842 ml 600 ml 0 ml Output Total 0 ml 400 ml Balance 0 ml 842 ml 200 ml 0 ml Intake Oral 840 ml 600 ml IV Total 2 ml 0 ml Output Urine Total 0 ml 400 ml # Voids 3 0 # Bowel Movements 0 1 Result Diagram: 01/16/1770401/16/17704 Objective Remarks GENERAL: NAD, A&Ox3 HEAD: Normocephalic. NECK: Supple, trachea midline. No lymphadenopathy. EYES: No scleral icterus. No injection or drainage. CARDIOVASCULAR: Regular rate and rhythm without murmurs, gallops, or rubs. RESPIRATORY: Breath sounds equal bilaterally. No accessory muscle use. Crackles bilaterally at bases. GASTROINTESTINAL: Abdomen soft, non-tender, nondistended. MUSCULOSKELETAL: No cyanosis, or edema. SKIN: Warm and dry. NEURO: No focal neurological deficitis. A/P Problem List: (1) CHF (congestive heart failure) ICD Code: I50.9 (2) Acute kidney injury ICD Code: N17.9 Assessment and Plan Assessment and Plan 86-year-old female admitted for CHF exacerbation, hypoxia, and weakness. Baseline history of atrial fibrillation, on Coumadin and CHF, pacemaker, hypertension, GERD, hypothyroidism. Improvement continues. Renal function worse today. Continue to monitor renal function. Nausea and vomiting are present in the afternoon. This persists we'll have to provide some fluids, though at this time due to fluid overload will try to avoid this. Will need continued physical therapy. Acute CHF exacerbation Slowly improving Continue diuresis Follow renal function Follow clinically for improvement in shortness of breath Cardiology following Acute kidney injury Underlying chronic kidney disease contributory Continue diuresis and follow renal function for now Unstable for outpatient management Atrial fibrillation Continue Coumadin Follow INR Telemetry Hypertension Continue baseline treatments Follow blood pressure Adjust as needed Hypothyroidism Continue Synthroid Weakness Continue PT Possible need for rehabilitation facility at discharge DVT Prophylaxis Coumadin continued, follow INR Problem Qualifiers (1) CHF (congestive heart failure): Qualified Code: I50.21 - Acute systolic congestive heart failure Sam Burton MD Jan 16, 2017 15:52
[2017-01-17] VITALS (10 sets, daily range): BP systolic 124–157; BP diastolic 60–74; PULSE 61–64; RESP 18–20; TEMP 97.5–98.2; O2SAT 91–96
[2017-01-17] MEDS: RESP: IPRATROPIUM 0.5 MG/2.5 ML NEB NEB SCH ×6 (04:03→23:27)
[2017-01-17] MEDS: SUCRALFATE 1 GM/10 ML CUP PO SCH ×4 (06:12→21:34)
[2017-01-17] MEDS: LEVOTHYROXINE SODIUM 50 MCG TAB PO SCH (06:12)
[2017-01-17] MEDS: LACTULOSE SYRUP 20 GM/30 ML CUP PO PRN (08:39)
[2017-01-17] MEDS: METOPROLOL TARTRATE 100 MG TAB PO SCH ×2 (08:39→21:34)
[2017-01-17] MEDS: DIAZEPAM 2 MG TAB PO SCH ×2 (08:39→21:34)
[2017-01-17] MEDS: AMIODARONE 200 MG TAB PO SCH (08:39)
[2017-01-17] MEDS: guaiFENesin E.R. 600 MG TAB PO SCH ×2 (08:39→21:34)
[2017-01-17] MEDS: PANTOPRAZOLE SOD 40 MG DELAYED RELEASE TAB PO SCH (08:39)
[2017-01-17] MEDS: DILTIAZEM-CD 240 MG CAP ER PO SCH (08:39)
[2017-01-17] MEDS: DOCUSATE SODIUM 50 MG/SENNA 8.6 MG TAB PO SCH ×2 (08:39→21:34)
[2017-01-17] MEDS: MEGESTROL ACETATE SUSP 400 MG/10 ML CUP PO SCH (08:40)
[2017-01-17] MEDS: SODIUM CHLORIDE 0.9% FLUSH 10 ML FLUSH IV FLUSH SCH ×2 (08:41→21:34)
[2017-01-17 09:30] LABS: HEMATOCRIT 28.2 % (35.0-46.0); MEAN CELL VOLUME 84.5 FL (80.0-100.0); MEAN CORPUSCULAR HEMOGLOBIN 28.1 PG (27.0-34.0); MEAN CORPUSCULAR HGB CONC 33.2 % (32.0-36.0); PLATELET COUNT 216 TH/MM3 (150-450); RED BLOOD COUNT 3.34 MIL/MM3 (4.00-5.30); REVIEW FLAG FINAL; WHITE BLOOD COUNT 10.2 TH/MM3 (4.0-11.0)
[2017-01-17 09:38] LABS: INTERNATIONAL NORMALIZED RATIO 2.7 RATIO; PROTHROMBIN TIME - PATIENT 31.2 SEC (9.8-11.6)
[2017-01-17 09:51] LABS: BICARBONATE 28.1 MEQ/L (21.0-32.0); POTASSIUM 4.4 MEQ/L (3.5-5.1)
[2017-01-17] MEDS ORDERED: SODIUM CHLORIDE 1 GRAM TAB PO ONE (10:15)
--- NOTE | 2017-01-17 10:42 | HHI.PR ---
Subjective Remarks GI upset with vomiting last evening. Today patient's renal function has improved. However, hyponatremia is worsened and she's not stable enough for discharge. Objective Vital Signs Date Time Temp Pulse Resp B/P Pulse Ox O2 Delivery O2 Flow Rate FiO2 01/17/17 08:12 91 21 01/17/17 08:00 98.1 62 20 141/69 96 01/17/17 04:00 98.2 64 20 124/60 94 01/17/17 00:00 97.6 63 18 128/62 94 01/16/17 20:18 62 01/16/17 20:15 Room Air 01/16/17 20:00 98.0 62 18 137/63 93 01/16/17 16:04 98.6 62 18 129/62 94 01/16/17 15:21 98 21 01/16/17 12:14 98.5 62 18 142/68 92 I/O 01/16/17 01/16/17 01/16/17 01/17/17 01/17/17 01/17/17 07:00 15:00 23:00 07:00 15:00 23:00 Intake Total 600 ml 360 ml 560 ml Output Total 400 ml Balance 200 ml 360 ml 560 ml Intake Oral 600 ml 360 ml 560 ml IV Total 0 ml Output Urine Total 400 ml # Voids 0 3 1 # Bowel Movements 1 0 Result Diagram: 01/17/17 0747 01/17/17 0747 Objective Remarks GENERAL: NAD, A&Ox3 HEAD: Normocephalic. NECK: Supple, trachea midline. No lymphadenopathy. EYES: No scleral icterus. No injection or drainage. CARDIOVASCULAR: Regular rate and rhythm without murmurs, gallops, or rubs. RESPIRATORY: Breath sounds equal bilaterally. No accessory muscle use. Crackles bilaterally at bases. GASTROINTESTINAL: Abdomen soft, non-tender, nondistended. MUSCULOSKELETAL: No cyanosis, or edema. SKIN: Warm and dry. NEURO: No focal neurological deficitis. A/P Problem List: (1) CHF (congestive heart failure) ICD Code: I50.9 (2) Acute kidney injury ICD Code: N17.9 Assessment and Plan Assessment and Plan 86-year-old female admitted for CHF exacerbation, hypoxia, and weakness. Baseline history of atrial fibrillation, on Coumadin and CHF, pacemaker, hypertension, GERD, hypothyroidism. Patient remains on oxygen. Nausea and vomiting, present yesterday, has improved. Renal function improved compared to prior day. Hyponatremia is worsened. So I added back to patient's diet and she is given a one-time supplement of sodium chloride by mouth. Acute CHF exacerbation Slowly improving Continue diuresis Follow renal function Follow clinically for improvement in shortness of breath Cardiology following Acute kidney injury Underlying chronic kidney disease contributory Continue diuresis and follow renal function for now Unstable for outpatient management Atrial fibrillation Continue Coumadin Follow INR Telemetry Hypertension Continue baseline treatments Follow blood pressure Adjust as needed Hypothyroidism Continue Synthroid Weakness Continue PT Possible need for rehabilitation facility at discharge DVT Prophylaxis Coumadin continued, follow INR Problem Qualifiers (1) CHF (congestive heart failure): Qualified Code: I50.21 - Acute systolic congestive heart failure Sam Burton MD Jan 17, 2017 10:42
[2017-01-17] MEDS: ONDANSETRON HCL 4 MG/2 ML VIAL IVP PRN (15:46)
[2017-01-18] VITALS (9 sets, daily range): BP systolic 110–147; BP diastolic 55–70; PULSE 61–68; RESP 18–21; TEMP 97.2–97.9; O2SAT 90–98
[2017-01-18] MEDS: RESP: IPRATROPIUM 0.5 MG/2.5 ML NEB NEB SCH ×5 (04:34→19:43)
[2017-01-18] MEDS: SUCRALFATE 1 GM/10 ML CUP PO SCH ×4 (05:50→21:54)
[2017-01-18] MEDS: LEVOTHYROXINE SODIUM 50 MCG TAB PO SCH (05:50)
[2017-01-18 06:25] LABS: HEMATOCRIT 29.4 % (35.0-46.0); MEAN CELL VOLUME 83.7 FL (80.0-100.0); MEAN CORPUSCULAR HEMOGLOBIN 27.5 PG (27.0-34.0); MEAN CORPUSCULAR HGB CONC 32.9 % (32.0-36.0); PLATELET COUNT 228 TH/MM3 (150-450); RED BLOOD COUNT 3.51 MIL/MM3 (4.00-5.30); RED CELL DISTRIBUTION WIDTH 14.7 % (11.6-17.2); REVIEW FLAG FINAL; WHITE BLOOD COUNT 11.3 TH/MM3 (4.0-11.0)
[2017-01-18 06:29] LABS: BICARBONATE 28.5 MEQ/L (21.0-32.0); POTASSIUM 4.4 MEQ/L (3.5-5.1)
--- NOTE | 2017-01-18 08:33 | RADRPT ---
EXAM DATE/TIME: 01/18/2017 08:02 [facility] COMPARISON: CHEST SINGLE AP, January 14, 2017, 9:56. INDICATIONS : Evaluate for infiltrate. Shortness of breath. MEDICAL HISTORY : Cardiovascular disease. Chronic obstructive pulmonary disease. SURGICAL HISTORY : Pacemaker. ENCOUNTER: Subsequent ACUITY: 3 weeks PAIN SCORE: 0/10 LOCATION: chest FINDINGS: Cardiomegaly, small bilateral pleural effusions and basilar airspace disease again noted. Aortic calc ification. Pacer device from a left subclavian transvenous approach again noted. Osseous structures a re intact. CONCLUSION: No significant change has occurred. Milind Keane MD on January 18, 2017 at 8:30 Board Certified Radiologist. This report was verified electronically.
[2017-01-18] MEDS: guaiFENesin E.R. 600 MG TAB PO SCH ×2 (09:10→21:53)
[2017-01-18] MEDS: LACTULOSE SYRUP 20 GM/30 ML CUP PO PRN (09:10)
[2017-01-18] MEDS: METOPROLOL TARTRATE 100 MG TAB PO SCH ×2 (09:10→21:53)
[2017-01-18] MEDS: MEGESTROL ACETATE SUSP 400 MG/10 ML CUP PO SCH (09:10)
[2017-01-18] MEDS: DIAZEPAM 2 MG TAB PO SCH ×2 (09:10→21:53)
[2017-01-18] MEDS: PANTOPRAZOLE SOD 40 MG DELAYED RELEASE TAB PO SCH (09:10)
[2017-01-18] MEDS: AMIODARONE 200 MG TAB PO SCH (09:10)
[2017-01-18] MEDS: DOCUSATE SODIUM 50 MG/SENNA 8.6 MG TAB PO SCH ×2 (09:10→21:54)
[2017-01-18] MEDS: DILTIAZEM-CD 240 MG CAP ER PO SCH (09:11)
[2017-01-18] MEDS: SODIUM CHLORIDE 0.9% FLUSH 10 ML FLUSH IV FLUSH SCH ×2 (09:11→21:00)
[2017-01-18 11:27] LABS: BLOOD, URINE NEG (NEG); GLUCOSE,URINE NEG (NEG); KETONE, URINE NEG (NEG); NITRITE,URINE NEG (NEG); PH, URINE 5.5 (5.0-8.5); SQUAMOUS EPITHELIAL CELL URINE 1 /hpf (0-5); TRANSITIONAL EPI CELLS, URINE <1 /hpf; URINE COLOR YELLOW (YELLW/STRAW)
[2017-01-18 11:28] LABS: COMMENT (UR) CULT NOT INDICATED; CULTURE IF INDICATED CULT NOT INDICATED
--- NOTE | 2017-01-18 11:39 | HHI.PR ---
Subjective Remarks Continue dependence and oxygen. No signs of worsening of pulmonary edema. Patient had episodes of nausea yesterday she feels malaise today. White blood cell count has increased. Overall there is some concern that infection is starting. The chest x-ray does not reveal any acute evidence of pneumonia but I 'm suspicious for this given her declining respiratory status, nausea, and malaise. A UA is pending. Objective Vital Signs Date Time Temp Pulse Resp B/P Pulse Ox O2 Delivery O2 Flow Rate FiO2 01/18/17 08:58 95 Nasal Cannula 2.00 01/18/17 08:00 97.9 62 21 125/59 96 01/18/17 04:00 97.8 68 18 116/58 96 01/18/17 00:00 97.4 62 18 121/58 95 01/17/17 21:42 91 21 01/17/17 20:00 98.0 61 18 156/65 95 01/17/17 20:00 Nasal Cannula 2.00 01/17/17 20:00 61 01/17/17 16:00 97.5 63 20 157/74 92 01/17/17 14:17 2.00 01/17/17 12:13 61 01/17/17 12:00 98.0 61 20 142/71 94 I/O 01/17/17 01/17/17 01/17/17 01/18/17 01/18/17 01/18/17 07:00 15:00 23:00 07:00 15:00 23:00 Intake Total 240 ml 360 ml 180 ml Output Total 520 ml Balance 240 ml -160 ml 180 ml Intake Oral 240 ml 360 ml 180 ml Output Urine Total 520 ml # Voids 2 1 # Bowel Movements 0 0 0 Result Diagram: 01/18/17 0511 01/18/17 0511 Objective Remarks GENERAL: NAD, A&Ox3 HEAD: Normocephalic. NECK: Supple, trachea midline. No lymphadenopathy. EYES: No scleral icterus. No injection or drainage. CARDIOVASCULAR: Regular rate and rhythm without murmurs, gallops, or rubs. RESPIRATORY: Breath sounds equal bilaterally. No accessory muscle use. Crackles bilaterally at bases. GASTROINTESTINAL: Abdomen soft, non-tender, nondistended. MUSCULOSKELETAL: No cyanosis, or edema. SKIN: Warm and dry. NEURO: No focal neurological deficitis. A/P Problem List: (1) CHF (congestive heart failure) ICD Code: I50.9 (2) Acute kidney injury ICD Code: N17.9 Assessment and Plan Assessment and Plan 86-year-old female admitted for CHF exacerbation, hypoxia, and weakness. Baseline history of atrial fibrillation, on Coumadin and CHF, pacemaker, hypertension, GERD, hypothyroidism. Increased risk for pneumonia in setting of pulmonary edema. Now with nausea, malaise, and worsened hypoxia pneumonia is concerned. Patient will be started on Levaquin and probiotics. UA is pending. Acute CHF exacerbation Slowly improving Continue diuresis Follow renal function Follow clinically for improvement in shortness of breath Cardiology following Acute kidney injury Underlying chronic kidney disease contributory Continue diuresis and follow renal function for now Unstable for outpatient management Atrial fibrillation Continue Coumadin Follow INR Telemetry Hypertension Continue baseline treatments Follow blood pressure Adjust as needed Hypothyroidism Continue Synthroid Weakness Continue PT Possible need for rehabilitation facility at discharge DVT Prophylaxis Coumadin continued, follow INR Problem Qualifiers (1) CHF (congestive heart failure): Qualified Code: I50.21 - Acute systolic congestive heart failure Sam Burton MD Jan 18, 2017 11:39
[2017-01-18] MEDS: LEVOFLOXACIN 500 MG PREMIX INJ 100 ML IV SCH (12:20)
[2017-01-18] MEDS: LACTOBACILLUS ACIDOPHILUS TAB PO SCH ×2 (12:20→18:00)
[2017-01-18] MEDS ORDERED: SOD PHOSPHATE/SOD BIPHOSPHATE (ADULT) ENEMA 133ML RECTAL ONE (13:00)
--- NOTE | 2017-01-18 15:31 | RADRPT ---
EXAM DATE/TIME: 01/18/2017 14:46 [facility] COMPARISON: No previous studies available for comparison. INDICATIONS : Stool impaction MEDICAL HISTORY : Cardiovascular disease. Chronic obstructive pulmonary disease SURGICAL HISTORY : Pacemaker. ENCOUNTER: Subsequent ACUITY: 2 days PAIN SCORE: Non-responsive. LOCATION: Bilateral abdomen FINDINGS: A single erect view of the abdomen demonstrates pacer leads overlying right atrium and right ventricl e. Basal airspace disease with small effusions. No pneumothorax. Cardiomegaly. CONCLUSION: 1. Cardiomegaly with pacer leads in right atrium and right ventricle. Basal airspace disease, possibl y mild edema with bilateral effusions. Alvino Stern MD on January 18, 2017 at 15:26 Board Certified Radiologist. This report was verified electronically.
--- NOTE | 2017-01-18 17:11 | RADRPT ---
EXAM DATE/TIME: 01/18/2017 16:21 [facility] COMPARISON: No previous studies available for comparison. INDICATIONS : Pelvic pain and constipation. MEDICAL HISTORY : Cardiovascular disease. Chronic obstructive pulmonary disease SURGICAL HISTORY : Pacemaker. ENCOUNTER: Subsequent ACUITY: 2 days PAIN SCORE: 2/10 LOCATION: pelvis FINDINGS: A single frontal view of the pelvis demonstrates no evidence of fracture. The bony pelvic ring is in tact. Bony mineralization is normal. The soft tissues are intact. CONCLUSION: 1. No acute bony abnormalities. Ileus in lower abdomen. Alvino Stern MD on January 18, 2017 at 17:08 Board Certified Radiologist. This report was verified electronically.
[2017-01-19] VITALS (12 sets, daily range): BP systolic 110–143; BP diastolic 57–66; PULSE 62–72; RESP 16–18; TEMP 97.3–98.7; O2SAT 90–98
[2017-01-19] MEDS: RESP: IPRATROPIUM 0.5 MG/2.5 ML NEB NEB SCH ×7 (04:16→23:45)
[2017-01-19] MEDS: SUCRALFATE 1 GM/10 ML CUP PO SCH ×4 (05:27→22:43)
[2017-01-19] MEDS: LEVOTHYROXINE SODIUM 50 MCG TAB PO SCH (05:27)
[2017-01-19] MEDS: SODIUM CHLORIDE 0.9% FLUSH 10 ML FLUSH IV FLUSH SCH ×2 (09:00→21:00)
[2017-01-19] MEDS: DOCUSATE SODIUM 50 MG/SENNA 8.6 MG TAB PO SCH ×2 (09:00→22:42)
[2017-01-19] MEDS: MEGESTROL ACETATE SUSP 400 MG/10 ML CUP PO SCH (09:00)
[2017-01-19] MEDS: AMIODARONE 200 MG TAB PO SCH (09:00)
[2017-01-19] MEDS: PANTOPRAZOLE SOD 40 MG DELAYED RELEASE TAB PO SCH (09:00)
[2017-01-19] MEDS: METOPROLOL TARTRATE 100 MG TAB PO SCH ×2 (09:00→22:42)
[2017-01-19] MEDS: LACTOBACILLUS ACIDOPHILUS TAB PO SCH ×3 (09:00→17:02)
[2017-01-19] MEDS: guaiFENesin E.R. 600 MG TAB PO SCH ×2 (09:00→22:42)
[2017-01-19] MEDS: DIAZEPAM 2 MG TAB PO SCH ×2 (09:00→22:42)
[2017-01-19] MEDS: DILTIAZEM-CD 240 MG CAP ER PO SCH (09:00)
[2017-01-19 10:26] LABS: HEMATOCRIT 30.3 % (35.0-46.0); MEAN CELL VOLUME 83.7 FL (80.0-100.0); MEAN CORPUSCULAR HGB CONC 33.4 % (32.0-36.0); PLATELET COUNT 233 TH/MM3 (150-450); RED BLOOD COUNT 3.62 MIL/MM3 (4.00-5.30); RED CELL DISTRIBUTION WIDTH 14.9 % (11.6-17.2); REVIEW FLAG FINAL; WHITE BLOOD COUNT 10.8 TH/MM3 (4.0-11.0)
[2017-01-19 10:50] LABS: BICARBONATE 26.3 MEQ/L (21.0-32.0); POTASSIUM 4.2 MEQ/L (3.5-5.1)
[2017-01-19] MEDS: LEVOFLOXACIN 500 MG PREMIX INJ 100 ML IV SCH (11:32)
--- NOTE | 2017-01-19 11:50 | HHI.PR ---
Subjective Remarks Symptoms overnight. Patient made nothing by mouth secondary to ileus. This morning she is feeling better. Bowel sounds are present. Labs show improvement of her renal function and a decrease in her white blood cell count. Objective Vital Signs Date Time Temp Pulse Resp B/P Pulse Ox O2 Delivery O2 Flow Rate FiO2 01/19/17 09:35 Nasal Cannula 2.00 01/19/17 09:35 63 01/19/17 08:12 95 2.00 01/19/17 08:11 90 Nasal Cannula 1.00 01/19/17 08:03 98.7 65 18 129/64 96 01/19/17 04:00 97.5 63 18 117/57 95 01/19/17 00:00 97.3 65 16 140/64 97 01/18/17 20:00 97.2 61 18 110/55 96 01/18/17 19:44 98 Nasal Cannula 2.00 01/18/17 16:00 97.5 63 20 147/70 97 01/18/17 15:36 63 01/18/17 15:36 Nasal Cannula 2.00 01/18/17 13:59 17 01/18/17 12:00 97.4 66 20 140/66 90 I/O 01/18/17 01/18/17 01/18/17 01/19/17 01/19/17 01/19/17 07:00 15:00 23:00 07:00 15:00 23:00 Intake Total 180 ml 240 ml 180 ml 0 ml Balance 180 ml 240 ml 180 ml 0 ml Intake Oral 180 ml 240 ml 180 ml 0 ml # Voids 1 0 0 1 # Bowel Movements 0 0 0 1 Result Diagram: 01/19/1792401/19/1725 Objective Remarks GENERAL: NAD, A&Ox3 HEAD: Normocephalic. NECK: Supple, trachea midline. No lymphadenopathy. EYES: No scleral icterus. No injection or drainage. CARDIOVASCULAR: Regular rate and rhythm without murmurs, gallops, or rubs. RESPIRATORY: Breath sounds equal bilaterally. No accessory muscle use. Crackles bilaterally at bases. GASTROINTESTINAL: Abdomen soft, non-tender, nondistended. MUSCULOSKELETAL: No cyanosis, or edema. SKIN: Warm and dry. NEURO: No focal neurological deficitis. A/P Problem List: (1) CHF (congestive heart failure) ICD Code: I50.9 (2) Acute kidney injury ICD Code: N17.9 Assessment and Plan Assessment and Plan 86-year-old female admitted for CHF exacerbation, hypoxia, and weakness. Baseline history of atrial fibrillation, on Coumadin and CHF, pacemaker, hypertension, GERD, hypothyroidism. Ileus now present. Advance diet to clear liquid diet based on no symptoms and active bowel sounds. Monitor for symptoms. Renal function has been improving to time. White blood cell count decreased with addition of antibiotics. Acute CHF exacerbation Slowly improving Continue diuresis Follow renal function Follow clinically for improvement in shortness of breath Cardiology following Acute kidney injury Underlying chronic kidney disease contributory Continue diuresis and follow renal function for now Unstable for outpatient management Atrial fibrillation Continue Coumadin Follow INR Telemetry Hypertension Continue baseline treatments Follow blood pressure Adjust as needed Hypothyroidism Continue Synthroid Weakness Continue PT Possible need for rehabilitation facility at discharge DVT Prophylaxis Coumadin continued, follow INR Problem Qualifiers (1) CHF (congestive heart failure): Qualified Code: I50.21 - Acute systolic congestive heart failure Sam Burton MD Jan 19, 2017 11:50
[2017-01-20] VITALS (8 sets, daily range): BP systolic 126–164; BP diastolic 62–78; PULSE 66–79; RESP 16–18; TEMP 97.3–98.6; O2SAT 94–100
[2017-01-20] MEDS: RESP: IPRATROPIUM 0.5 MG/2.5 ML NEB NEB SCH ×6 (04:39→23:41)
[2017-01-20] MEDS: SUCRALFATE 1 GM/10 ML CUP PO SCH ×4 (06:23→20:07)
[2017-01-20] MEDS: LEVOTHYROXINE SODIUM 50 MCG TAB PO SCH (06:23)
[2017-01-20 06:53] LABS: HEMATOCRIT 31.1 % (35.0-46.0); MEAN CELL VOLUME 82.6 FL (80.0-100.0); MEAN CORPUSCULAR HEMOGLOBIN 28.1 PG (27.0-34.0); PLATELET COUNT 242 TH/MM3 (150-450); RED BLOOD COUNT 3.76 MIL/MM3 (4.00-5.30); RED CELL DISTRIBUTION WIDTH 14.9 % (11.6-17.2); REVIEW FLAG FINAL; WHITE BLOOD COUNT 8.8 TH/MM3 (4.0-11.0)
[2017-01-20 07:47] LABS: BICARBONATE 28.9 MEQ/L (21.0-32.0); POTASSIUM 4.3 MEQ/L (3.5-5.1)
[2017-01-20] MEDS: PANTOPRAZOLE SOD 40 MG DELAYED RELEASE TAB PO SCH (09:18)
[2017-01-20] MEDS: LACTOBACILLUS ACIDOPHILUS TAB PO SCH ×3 (09:18→18:41)
[2017-01-20] MEDS: guaiFENesin E.R. 600 MG TAB PO SCH ×2 (09:18→20:07)
[2017-01-20] MEDS: SODIUM CHLORIDE 0.9% FLUSH 10 ML FLUSH IV FLUSH SCH ×2 (09:18→21:00)
[2017-01-20] MEDS: DILTIAZEM-CD 240 MG CAP ER PO SCH (09:18)
[2017-01-20] MEDS: METOPROLOL TARTRATE 100 MG TAB PO SCH ×2 (09:18→20:07)
[2017-01-20] MEDS: MEGESTROL ACETATE SUSP 400 MG/10 ML CUP PO SCH (09:18)
[2017-01-20] MEDS: DIAZEPAM 2 MG TAB PO SCH ×2 (09:18→20:07)
[2017-01-20] MEDS: AMIODARONE 200 MG TAB PO SCH (09:18)
--- NOTE | 2017-01-20 11:07 | HHI.PR ---
Subjective Remarks Mrs. Paul is admitted with a CHF Exacerbation, which has improved. She still has issues with hypoxia and constipation and recently had an ileus which is improving clinically. Tolerating clear liquids. Advance diet to full liquids. No bowel movement yet the patient is passing gas. Objective Vital Signs Date Time Temp Pulse Resp B/P Pulse Ox O2 Delivery O2 Flow Rate FiO2 01/20/17 08:53 96 Nasal Cannula 1.00 01/20/17 08:00 98.6 79 18 164/78 100 01/20/17 05:34 Nasal Cannula 2.00 01/20/17 05:34 98.3 77 16 136/64 94 01/19/17 23:45 97.8 72 16 110/61 97 01/19/17 23:45 Nasal Cannula 2.00 01/19/17 21:08 Nasal Cannula 2.00 01/19/17 21:08 98.4 70 16 126/59 92 01/19/17 20:19 62 01/19/17 19:54 92 Nasal Cannula 6.00 01/19/17 16:03 97.8 66 18 138/65 98 01/19/17 12:03 98.4 66 18 143/66 96 I/O 01/19/17 01/19/17 01/19/17 01/20/17 01/20/17 01/20/17 07:00 15:00 23:00 07:00 15:00 23:00 Intake Total 0 ml 320 ml 240 ml 0 ml Output Total 1000 ml Balance 0 ml 320 ml 240 ml -1000 ml Intake Oral 0 ml 320 ml 240 ml 0 ml Output Urine Total 1000 ml # Voids 1 4 3 # Bowel Movements 1 1 1 0 Result Diagram: 01/20/17 0631 01/20/17 0631 Objective Remarks GENERAL: NAD, A&Ox3 HEAD: Normocephalic. NECK: Supple, trachea midline. No lymphadenopathy. EYES: No scleral icterus. No injection or drainage. CARDIOVASCULAR: Regular rate and rhythm without murmurs, gallops, or rubs. RESPIRATORY: Breath sounds equal bilaterally. No accessory muscle use. Crackles bilaterally at bases. GASTROINTESTINAL: Abdomen soft, non-tender, nondistended. MUSCULOSKELETAL: No cyanosis, or edema. SKIN: Warm and dry. NEURO: No focal neurological deficitis. A/P Problem List: (1) CHF (congestive heart failure) ICD Code: I50.9 (2) Acute kidney injury ICD Code: N17.9 Assessment and Plan Assessment and Plan 86-year-old female admitted for CHF exacerbation, hypoxia, and weakness. Baseline history of atrial fibrillation, on Coumadin and CHF, pacemaker, hypertension, GERD, hypothyroidism. Ileus now present. Advance diet to full liquid diet. Monitor for bowel movement. Continue Colace and laxatives and when necessary enema. Acute CHF exacerbation Slowly improving Continue diuresis Follow renal function Follow clinically for improvement in shortness of breath Cardiology following Acute kidney injury Underlying chronic kidney disease contributory Continue diuresis and follow renal function for now Unstable for outpatient management Atrial fibrillation Continue Coumadin Follow INR Telemetry Hypertension Continue baseline treatments Follow blood pressure Adjust as needed Hypothyroidism Continue Synthroid Weakness Continue PT Possible need for rehabilitation facility at discharge DVT Prophylaxis Coumadin continued, follow INR Discharge Planning Needs resolution of illeus and bowel movement with stability of CHF and if hypoxia persists she will need home O2. Problem Qualifiers (1) CHF (congestive heart failure): Qualified Code: I50.21 - Acute systolic congestive heart failure Sam Burton MD Jan 20, 2017 11:07
[2017-01-20] MEDS: LEVOFLOXACIN 500 MG PREMIX INJ 100 ML IV SCH (12:12)
[2017-01-20] MEDS: DOCUSATE SODIUM 50 MG/SENNA 8.6 MG TAB PO SCH ×2 (12:13→21:00)
[2017-01-20 20:53] LABS: INTERNATIONAL NORMALIZED RATIO 1.8 RATIO; PROTHROMBIN TIME - PATIENT 20.1 SEC (9.8-11.6)
[2017-01-21] VITALS (12 sets, daily range): BP systolic 126–159; BP diastolic 62–72; PULSE 64–82; RESP 16–18; TEMP 97.8–98.8; O2SAT 94–98
[2017-01-21] MEDS: RESP: IPRATROPIUM 0.5 MG/2.5 ML NEB NEB SCH ×6 (03:23→23:30)
[2017-01-21] MEDS: SUCRALFATE 1 GM/10 ML CUP PO SCH ×4 (06:25→21:21)
[2017-01-21] MEDS: LEVOTHYROXINE SODIUM 50 MCG TAB PO SCH (06:25)
[2017-01-21] MEDS: DILTIAZEM-CD 240 MG CAP ER PO SCH (08:38)
[2017-01-21] MEDS: MEGESTROL ACETATE SUSP 400 MG/10 ML CUP PO SCH (08:38)
[2017-01-21] MEDS: DIAZEPAM 2 MG TAB PO SCH ×2 (08:39→21:21)
[2017-01-21] MEDS: AMIODARONE 200 MG TAB PO SCH (08:39)
[2017-01-21] MEDS: LACTOBACILLUS ACIDOPHILUS TAB PO SCH ×3 (08:39→17:33)
[2017-01-21] MEDS: PANTOPRAZOLE SOD 40 MG DELAYED RELEASE TAB PO SCH (08:39)
[2017-01-21] MEDS: guaiFENesin E.R. 600 MG TAB PO SCH ×2 (08:39→21:21)
[2017-01-21] MEDS: DOCUSATE SODIUM 50 MG/SENNA 8.6 MG TAB PO SCH ×2 (08:39→21:00)
[2017-01-21] MEDS: SODIUM CHLORIDE 0.9% FLUSH 10 ML FLUSH IV FLUSH SCH ×2 (08:39→21:22)
[2017-01-21] MEDS: METOPROLOL TARTRATE 100 MG TAB PO SCH ×2 (08:39→21:21)
[2017-01-21 11:27] LABS: AUTOMATED NEUTROPHIL # 6.5 TH/MM3 (1.8-7.7); BASOPHIL % 0.3 % (0.0-2.0); EOSINOPHIL # 0.2 TH/MM3 (0-0.4); EOSINOPHIL % 2.8 % (0.0-4.0); HEMATOCRIT 30.1 % (35.0-46.0); HEMO FLAGS DIFF FINAL; LYMPH % 15.3 % (9.0-44.0); LYMPHOCYTE # 1.3 TH/MM3 (1.0-4.8); MEAN CELL VOLUME 83.6 FL (80.0-100.0); MEAN CORPUSCULAR HEMOGLOBIN 27.7 PG (27.0-34.0); MEAN CORPUSCULAR HGB CONC 33.1 % (32.0-36.0); NEUT % 74.6 % (16.0-70.0); PLATELET COUNT 256 TH/MM3 (150-450); WHITE BLOOD COUNT 8.7 TH/MM3 (4.0-11.0)
[2017-01-21] MEDS: LEVOFLOXACIN/DEXTROSE 250 MG/50 ML IV SCH (11:27)
[2017-01-21 11:43] LABS: ALT (GPT) 24 U/L (10-53); ANION GAP 5 MEQ/L (5-15); AST (GOT) 14 U/L (15-37); BICARBONATE 29.1 MEQ/L (21.0-32.0); BLOOD UREA NITROGEN 11 MG/DL (7-18); CHLORIDE 104 MEQ/L (98-107); GLOMERULAR FILTRATION RATE 45 ML/MIN (>89); MAGNESIUM 1.8 MG/DL (1.5-2.5); POTASSIUM 3.8 MEQ/L (3.5-5.1); SODIUM (NA) 138 MEQ/L (136-145)
[2017-01-21 11:45] LABS: ALKALINE PHOSPHATASE 49 U/L (45-117); TOTAL BILIRUBIN ADULT 0.4 MG/DL (0.2-1.0)
[2017-01-21] MEDS: MAGNESIUM HYDROXIDE SUSP 30 ML CUP PO PRN (13:32)
--- NOTE | 2017-01-21 15:10 | HHI.PR ---
Subjective Remarks Patient denies nausea, vomiting or abdominal pain Denies fevers or chills States passing a little gas but no bowel movements Tolerated breakfast Objective Vitals Vital Signs Date Time Temp Pulse Resp B/P Pulse Ox O2 Delivery O2 Flow Rate FiO2 01/21/17 12:05 98.5 69 18 133/62 97 01/21/17 11:08 97 01/21/17 09:43 98 01/21/17 08:06 98.8 82 18 157/72 98 01/21/17 07:42 67 01/21/17 07:42 Room Air 01/21/17 04:27 98.7 71 16 136/63 96 01/21/17 00:32 64 01/21/17 00:28 97.8 75 16 126/66 97 01/20/17 23:44 96 Nasal Cannula 1.00 01/20/17 22:40 Nasal Cannula 1.00 21 01/20/17 20:55 98.4 76 16 126/62 97 01/20/17 20:25 95 Nasal Cannula 1.00 01/20/17 16:00 97.3 78 18 131/65 98 I/O 01/20/17 01/20/17 01/20/17 01/21/17 01/21/17 01/21/17 07:00 15:00 23:00 07:00 15:00 23:00 Intake Total 0 ml 720 ml 240 ml 0 ml Output Total 1000 ml 1100 ml 400 ml 525 ml Balance -1000 ml -380 ml -160 ml -525 ml Intake Oral 0 ml 720 ml 240 ml 0 ml Output Urine Total 1000 ml 1100 ml 400 ml 525 ml # Bowel Movements 0 0 0 Result Diagram: 01/21/17 1056 01/21/17 1056 Imaging Last Impressions Pelvis X-Ray 01/18/17 0000 Signed Impressions: Service Date/Time: Wednesday, January 18, 2017 16:21 - CONCLUSION: 1. No acute bony abnormalities. Ileus in lower abdomen. Alvino Stern MD Chest X-Ray 01/18/17 0000 Signed Impressions: Service Date/Time: Wednesday, January 18, 2017 08:02 - CONCLUSION: No significant change has occurred. Milind Keane MD Abdomen X-Ray 01/18/17 0000 Signed Impressions: Service Date/Time: Wednesday, January 18, 2017 14:46 - CONCLUSION: 1. Cardiomegaly with pacer leads in right atrium and right ventricle. Basal airspace disease, possibly mild edema with bilateral effusions. Alvino Stern MD Thoracic Spine CT 01/11/17 0000 Signed Impressions: Service Date/Time: Wednesday, January 11, 2017 15:13 - CONCLUSION: No acute abnormality is seen in the thoracic spine. Bilateral pleural effusions are present. Edu Chang MD Cervical Spine CT 01/11/17 0000 Signed Impressions: Service Date/Time: Wednesday, January 11, 2017 15:13 - CONCLUSION: 1. No acute bony abnormality is seen. 2. Degenerative change at multiple levels as described above. Edu Chang MD Objective Remarks GENERAL: NAD, A&Ox3 HEAD: Normocephalic. NECK: Supple, trachea midline. No lymphadenopathy. EYES: No scleral icterus. No injection or drainage. CARDIOVASCULAR: Regular rate and rhythm without murmurs, gallops, or rubs. RESPIRATORY: Breath sounds equal bilaterally. No accessory muscle use. Crackles bilaterally at bases. GASTROINTESTINAL: Abdomen soft, non-tender, nondistended. MUSCULOSKELETAL: No cyanosis, or edema. SKIN: Warm and dry. NEURO: No focal neurological deficitis. Procedures none Medications and IVs Current Medications Medications (Trade) Dose Ordered Sig/Ricky Route Start Time Stop Time Status Last Admin (Synthroid) 50 mcg DAILY@06 PO 01/12/17 06:00 01/21/17 06:25 (Lopressor) 100 mg BID PO 01/11/17 21:00 01/21/17 08:39 (NS Flush) 2 ml UNSCH PRN IV FLUSH 01/11/17 12:30 01/11/17 17:51 (NS Flush) 2 ml BID IV FLUSH 01/11/17 21:00 01/21/17 08:39 (Tylenol) 650 mg Q4H PRN PO 01/11/17 12:30 (Zofran Inj) 4 mg Q6H PRN IVP 01/11/17 12:30 01/17/17 15:46 (Narcan Inj) 0.4 mg UNSCH PRN IV 01/11/17 12:30 (Hansa-Colace) 1 tab BID PO 01/11/17 21:00 01/21/17 08:39 (Milk Of Magnesia Liq) 30 ml Q12H PRN PO 01/11/17 12:30 01/21/17 13:32 (Senokot) 17.2 mg Q12H PRN PO 01/11/17 12:30 01/17/17 15:44 (Dulcolax Supp) 10 mg DAILY PRN RECTAL 01/11/17 12:30 01/18/17 09:10 (Lactulose Liq) 30 ml DAILY PRN PO 01/11/17 12:30 01/18/17 09:10 (Carafate Liq) 1 gm ACHS PO 01/11/17 16:00 01/21/17 11:27 ([place] 5-325 Mg) 1 tab Q4H PRN PO 01/11/17 15:00 01/18/17 12:54 (Mucinex Er) 600 mg BID PO 01/11/17 15:00 01/21/17 08:39 (Megace Liq) 400 mg DAILY PO 01/11/17 15:00 01/21/17 08:38 (Valium) 2 mg Q12HR PO 01/11/17 21:00 01/21/17 08:39 (Cardizem Cd) 240 mg DAILY PO 01/13/17 10:00 01/21/17 08:38 (Coumadin) 1 mg DAILY@1600 PO 01/15/17 16:00 01/15/17 16:28 (Cordarone) 200 mg DAILY PO 01/17/17 09:00 01/21/17 08:39 (Protonix) 40 mg DAILY PO 01/17/17 09:00 01/21/17 08:39 Lactobacillus Acidophilus 1 tab 1 tab TID PO 01/18/17 13:00 01/21/17 13:28 (Levaquin 250 Mg Premix Inj) 50 ml @ 50 mls/hr Q24H IV 01/21/17 12:00 01/21/17 11:27 Urinary Catheter: No Vascular Central Line Catheter: No A/P Assessment and Plan 86-year-old female admitted for CHF exacerbation, hypoxia, and weakness. Baseline history of atrial fibrillation, on Coumadin and CHF, pacemaker, hypertension, GERD, hypothyroidism. Ileus now present. Advance diet to full liquid diet. Monitor for bowel movement. Continue Colace and laxatives and when necessary enema. Acute on chronic systolic CHF exacerbation Now resolved. Cardiology consulted, recommended conservative management given her advanced age , sedentary lifestyle Continue beta chip, no MIHAI-I or ARB with her renal insufficiency Continue diuresis with oral lasix Patient's hypoxemia resolved. Patient currently on room air. Acute kidney injury Upon review of records of previous hospitalizations, the patient has had a creatinine baseline of 1.1. Likely chronic kidney disease stage III. Continue to monitor renal function, strict I's and O's Continue diuresis and follow renal function for now Creatinine down to 1.14 likely at the patient's baseline. Atrial fibrillation Rate controlled Continue Coumadin Follow INR - 1.8 on 01/20 subtherapeutic Telemetry Continue Cardizem, amiodarone Hypertension Stable. Continue antihypertensive medications. Continue metoprolol, Cardizem Hypothyroidism Continue Synthroid, stable Weakness Continue PT Will likely need home health physical therapy. Ileus/constipation Patient still with constipation, passing gas. Sluggish bowel sounds on abdominal exam. Will start on MiraLAX daily. DVT Prophylaxis On Coumadin GI prophylaxis - on sucralfate Discharge Planning Possible DC in am. Pending BM and stable oxygenation. Alex Castro MD Jan 21, 2017 15:10
[2017-01-21] MEDS: WARFARIN SOD 1 MG TAB PO SCH (15:11)
[2017-01-21] MEDS: POLYETHYLENE GLYCOL 17 GM PKG PO SCH (15:38)
[2017-01-22] VITALS (12 sets, daily range): BP systolic 124–164; BP diastolic 59–79; PULSE 66–91; RESP 16–18; TEMP 97.8–99.9; O2SAT 93–97
[2017-01-22] MEDS: RESP: IPRATROPIUM 0.5 MG/2.5 ML NEB NEB SCH ×6 (03:59→23:52)
[2017-01-22] MEDS: LEVOTHYROXINE SODIUM 50 MCG TAB PO SCH (06:33)
[2017-01-22] MEDS: SUCRALFATE 1 GM/10 ML CUP PO SCH ×4 (06:34→21:22)
--- NOTE | 2017-01-22 08:52 | HHI.PR ---
Subjective Remarks Seen in her bedroom in the presence of her Sister Miss Dilia Dillon discussed with nurse Brittany awaiting for new Bowel movement for discharge given Lactulose and the patient complaint of Abdominal pain, Objective Vital Signs Date Time Temp Pulse Resp B/P Pulse Ox O2 Delivery O2 Flow Rate FiO2 01/22/17 07:50 94 21 01/22/17 04:00 Room Air 01/22/17 04:00 97.8 70 18 140/68 94 01/22/17 00:00 98.4 70 18 144/66 94 01/22/17 00:00 Room Air 01/21/17 23:32 94 21 01/21/17 20:00 98.1 73 17 159/70 95 01/21/17 20:00 75 01/21/17 20:00 Room Air 01/21/17 19:42 96 21 01/21/17 16:05 98.4 64 18 139/66 96 01/21/17 12:05 98.5 69 18 133/62 97 01/21/17 11:08 97 01/21/17 09:43 98 I/O 01/21/17 01/21/17 01/21/17 01/22/17 01/22/17 01/22/17 07:00 15:00 23:00 07:00 15:00 23:00 Intake Total 0 ml 380 ml 240 ml Output Total 525 ml 1200 ml Balance -525 ml -820 ml 240 ml Intake Oral 0 ml 380 ml 240 ml Output Urine Total 525 ml 1200 ml # Voids 4 # Bowel Movements 0 1 Result Diagram: 01/21/17 1056 01/21/17 1056 Imaging Last Impressions Pelvis X-Ray 01/18/17 0000 Signed Impressions: Service Date/Time: Wednesday, January 18, 2017 16:21 - CONCLUSION: 1. No acute bony abnormalities. Ileus in lower abdomen. Alvino Stern MD Chest X-Ray 01/18/17 0000 Signed Impressions: Service Date/Time: Wednesday, January 18, 2017 08:02 - CONCLUSION: No significant change has occurred. Milind Keane MD Abdomen X-Ray 01/18/17 0000 Signed Impressions: Service Date/Time: Wednesday, January 18, 2017 14:46 - CONCLUSION: 1. Cardiomegaly with pacer leads in right atrium and right ventricle. Basal airspace disease, possibly mild edema with bilateral effusions. Alvino Stern MD Thoracic Spine CT 01/11/17 0000 Signed Impressions: Service Date/Time: Wednesday, January 11, 2017 15:13 - CONCLUSION: No acute abnormality is seen in the thoracic spine. Bilateral pleural effusions are present. Edu Chang MD Cervical Spine CT 01/11/17 0000 Signed Impressions: Service Date/Time: Wednesday, January 11, 2017 15:13 - CONCLUSION: 1. No acute bony abnormality is seen. 2. Degenerative change at multiple levels as described above. Edu Chang MD Procedures None Other Results Laboratory Tests Test 01/18/17 01/20/17 01/21/17 11:09 20:04 10:56 Urine Color YELLOW Urine Turbidity CLEAR Urine pH 5.5 Urine Specific [place] 1.021 Urine Protein TRACE mg/dL Urine Glucose (UA) NEG mg/dL Urine Ketones NEG mg/dL Urine Occult Blood NEG Urine Nitrite NEG Urine Bilirubin NEG Urine Urobilinogen LESS THAN 2.0 MG/DL Urine Leukocyte Esterase SMALL Urine RBC 1 /hpf Urine WBC 2 /hpf Urine Squamous Epithelial 1 /hpf Cells Urine Transitional Epithelial <1 /hpf Cells Microscopic Urinalysis Comment CULT NOT INDICATED Prothrombin Time 20.1 SEC Prothromb Time International 1.8 RATIO Ratio White Blood Count 8.7 TH/MM3 Red Blood Count 3.60 MIL/MM3 Hemoglobin 10.0 GM/DL Hematocrit 30.1 % Mean Corpuscular Volume 83.6 FL Mean Corpuscular Hemoglobin 27.7 PG Mean Corpuscular Hemoglobin 33.1 % Concent Red Cell Distribution Width 15.0 % Platelet Count 256 TH/MM3 Mean Platelet Volume 8.7 FL Neutrophils (%) (Auto) 74.6 % Lymphocytes (%) (Auto) 15.3 % Monocytes (%) (Auto) 7.0 % Eosinophils (%) (Auto) 2.8 % Basophils (%) (Auto) 0.3 % Neutrophils # (Auto) 6.5 TH/MM3 Lymphocytes # (Auto) 1.3 TH/MM3 Monocytes # (Auto) 0.6 TH/MM3 Eosinophils # (Auto) 0.2 TH/MM3 Basophils # (Auto) 0.0 TH/MM3 CBC Comment DIFF FINAL Differential Comment Sodium Level 138 MEQ/L Potassium Level 3.8 MEQ/L Chloride Level 104 MEQ/L Carbon Dioxide Level 29.1 MEQ/L Anion Gap 5 MEQ/L Blood Urea Nitrogen 11 MG/DL Creatinine 1.14 MG/DL Estimat Glomerular Filtration 45 ML/MIN Rate Random Glucose 124 MG/DL Calcium Level 8.1 MG/DL Phosphorus Level 1.9 MG/DL Magnesium Level 1.8 MG/DL Total Bilirubin 0.4 MG/DL Aspartate Amino Transf 14 U/L (AST/SGOT) Alanine Aminotransferase 24 U/L (ALT/SGPT) Alkaline Phosphatase 49 U/L Total Protein 5.8 GM/DL Albumin 2.5 GM/DL Objective Remarks GENERAL: NAD, A&Ox3 HEAD: Normocephalic. NECK: Supple, trachea midline. No lymphadenopathy. EYES: No scleral icterus. No injection or drainage. CARDIOVASCULAR: Regular rate and rhythm without murmurs, gallops, or rubs. RESPIRATORY: Breath sounds equal bilaterally. No accessory muscle use. Crackles bilaterally at bases. GASTROINTESTINAL: Abdomen soft, non-tender, nondistended. MUSCULOSKELETAL: No cyanosis, or edema. SKIN: Warm and dry. NEURO: No focal neurological deficits. Medications and IVs Current Medications Medications (Trade) Dose Ordered Sig/Ricky Route Start Time Stop Time Status Last Admin (Synthroid) 50 mcg DAILY@06 PO 01/12/17 06:00 01/22/17 06:33 (Lopressor) 100 mg BID PO 01/11/17 21:00 01/21/17 21:21 (NS Flush) 2 ml UNSCH PRN IV FLUSH 01/11/17 12:30 01/11/17 17:51 (NS Flush) 2 ml BID IV FLUSH 01/11/17 21:00 01/21/17 21:22 (Tylenol) 650 mg Q4H PRN PO 01/11/17 12:30 (Zofran Inj) 4 mg Q6H PRN IVP 01/11/17 12:30 01/17/17 15:46 (Narcan Inj) 0.4 mg UNSCH PRN IV 01/11/17 12:30 (Hansa-Colace) 1 tab BID PO 01/11/17 21:00 01/21/17 21:00 (Milk Of Magnesia Liq) 30 ml Q12H PRN PO 01/11/17 12:30 01/21/17 13:32 (Senokot) 17.2 mg Q12H PRN PO 01/11/17 12:30 01/17/17 15:44 (Dulcolax Supp) 10 mg DAILY PRN RECTAL 01/11/17 12:30 01/18/17 09:10 (Lactulose Liq) 30 ml DAILY PRN PO 01/11/17 12:30 01/18/17 09:10 (Carafate Liq) 1 gm ACHS PO 01/11/17 16:00 01/22/17 06:34 ([place] 5-325 Mg) 1 tab Q4H PRN PO 01/11/17 15:00 01/18/17 12:54 (Mucinex Er) 600 mg BID PO 01/11/17 15:00 01/21/17 21:21 (Megace Liq) 400 mg DAILY PO 01/11/17 15:00 01/21/17 08:38 (Valium) 2 mg Q12HR PO 01/11/17 21:00 01/21/17 21:21 (Cardizem Cd) 240 mg DAILY PO 01/13/17 10:00 01/21/17 08:38 (Coumadin) 1 mg DAILY@1600 PO 01/15/17 16:00 01/21/17 15:11 (Cordarone) 200 mg DAILY PO 01/17/17 09:00 01/21/17 08:39 (Protonix) 40 mg DAILY PO 01/17/17 09:00 01/21/17 08:39 Lactobacillus Acidophilus 1 tab 1 tab TID PO 01/18/17 13:00 01/21/17 17:33 Levofloxacin/ Dextrose 50 ml @ 50 mls/hr Q24H IV 01/21/17 12:00 01/21/17 11:27 (Coumadin Consult Pharmacy) 0 ml @ 0 mls/hr UNSCH OTHER 01/21/17 15:15 (Miralax) 17 gm DAILY PO 01/21/17 15:15 01/21/17 15:38 A/P Assessment and Plan 86-year-old female admitted for CHF exacerbation, hypoxia, and weakness. Baseline history of atrial fibrillation, on Coumadin and CHF, pacemaker, hypertension, GERD, hypothyroidism. Ileus now present. Advance diet to full liquid diet. Monitor for bowel movement. Continue Colace and laxatives and when necessary enema. Acute on chronic systolic CHF exacerbation Now resolved. Cardiology consulted, recommended conservative management given her advanced age , sedentary lifestyle Continue beta chip, no MIHAI-I or ARB with her renal insufficiency Continue diuresis with oral lasix Patient's hypoxemia resolved. Patient currently on room air. Acute kidney injury Upon review of records of previous hospitalizations, the patient has had a creatinine baseline of 1.1. Likely chronic kidney disease stage III. Continue to monitor renal function, strict I's and O's Continue diuresis and follow renal function for now Creatinine down to 1.14 likely at the patient's baseline. Atrial fibrillation Rate controlled Continue Coumadin Follow INR - asked for new INR now Telemetry Continue Cardizem, amiodarone Hypertension Stable. Continue antihypertensive medications. Continue metoprolol, Cardizem Hypothyroidism Continue Synthroid, stable Weakness Continue PT Will likely need home health physical therapy. Ileus/constipation given Lactulose, developed abdominal pain asked for KUB did not found Ileus. Hyponatremia Likely hypovolemic hyponatremia, now resolved with sodium up to 138. Treated with diuretics. DVT Prophylaxis On Coumadin GI prophylaxis - on sucralfate Discharge Planning Discussed with patient and her Sister in the room Miss Dilia Dillon all questions answered to the best of my abilities follow INR if subtherapeutic to increase Warfarin, she is taking 1 mg daily also will discuss with Capsule Maker. Ezekiel Nichols MD Jan 22, 2017 08:52
[2017-01-22] MEDS: DOCUSATE SODIUM 50 MG/SENNA 8.6 MG TAB PO SCH ×2 (09:00→21:23)
[2017-01-22 09:35] LABS: BICARBONATE 24.9 MEQ/L (21.0-32.0); POTASSIUM 4.1 MEQ/L (3.5-5.1)
[2017-01-22] MEDS: MEGESTROL ACETATE SUSP 400 MG/10 ML CUP PO SCH (09:47)
[2017-01-22] MEDS: METOPROLOL TARTRATE 100 MG TAB PO SCH ×2 (09:48→21:23)
[2017-01-22] MEDS: PANTOPRAZOLE SOD 40 MG DELAYED RELEASE TAB PO SCH (09:48)
[2017-01-22] MEDS: DIAZEPAM 2 MG TAB PO SCH ×2 (09:48→21:23)
[2017-01-22] MEDS: AMIODARONE 200 MG TAB PO SCH (09:48)
[2017-01-22] MEDS: guaiFENesin E.R. 600 MG TAB PO SCH ×2 (09:48→21:24)
[2017-01-22] MEDS: POLYETHYLENE GLYCOL 17 GM PKG PO SCH (09:48)
[2017-01-22] MEDS: LACTOBACILLUS ACIDOPHILUS TAB PO SCH ×3 (09:48→18:00)
[2017-01-22] MEDS: SODIUM CHLORIDE 0.9% FLUSH 10 ML FLUSH IV FLUSH SCH ×2 (09:48→21:23)
[2017-01-22] MEDS: DILTIAZEM-CD 240 MG CAP ER PO SCH (09:48)
[2017-01-22] MEDS: LEVOFLOXACIN/DEXTROSE 250 MG/50 ML IV SCH (12:12)
[2017-01-22] MEDS: MAGNESIUM HYDROXIDE SUSP 30 ML CUP PO PRN (12:12)
[2017-01-22] MEDS ORDERED: LACTULOSE SYRUP 20 GM/30 ML CUP PO ONE (14:30)
[2017-01-22] MEDS: WARFARIN SOD 1 MG TAB PO SCH (14:44)
--- NOTE | 2017-01-22 17:54 | RADRPT ---
EXAM DATE/TIME: 01/22/2017 17:41 [facility] COMPARISON: ABDOMEN UPRIGHT ONLY, January 18, 2017, 14:46. PELVIS AP ONLY, January 18, 2017, 16:21. INDICATIONS : Abdominal pain. MEDICAL HISTORY : Cardiovascular disease. Chronic obstructive pulmonary disease. SURGICAL HISTORY : Pacemaker. ENCOUNTER: Subsequent ACUITY: 4 - 6 days PAIN SCORE: 10/10 LOCATION: all quadrants. FINDINGS: Supine view of the abdomen was performed. The abdominal bowel gas pattern is nonspecific. There is m oderate gaseous distention of the colon with stool. This pattern is stable compared to the prior exam s of 01/18/2017. The small bowel is nondilated. There is a moderate amount of stool throughout the colo n.. CONCLUSION: Nonspecific bowel gas pattern with some moderate gaseous distention of the colon with air and stool. No significant change compared to 01/18/2017 Checo Ybarra MD on January 22, 2017 at 17:49 Board Certified Radiologist. This report was verified electronically.
[2017-01-22] MEDS: LACTULOSE SYRUP 20 GM/30 ML CUP PO PRN (21:24)
[2017-01-22] MEDS: ONDANSETRON HCL 4 MG/2 ML VIAL IVP PRN (21:29)
[2017-01-23] MEDS: RESP: IPRATROPIUM 0.5 MG/2.5 ML NEB NEB SCH ×4 (03:39→15:31)
[2017-01-23 04:35] VITALS: BP 105/54; PULSE 68; RESP 18; TEMP 98.2; O2SAT 94
[2017-01-23] MEDS: SUCRALFATE 1 GM/10 ML CUP PO SCH ×2 (06:13→12:23)
[2017-01-23] MEDS: LACTULOSE SYRUP 20 GM/30 ML CUP PO PRN (06:13)
[2017-01-23] MEDS: LEVOTHYROXINE SODIUM 50 MCG TAB PO SCH (06:13)
[2017-01-23 07:48] VITALS: O2SAT 92
[2017-01-23 07:50] LABS: INTERNATIONAL NORMALIZED RATIO 1.4 RATIO; PROTHROMBIN TIME - PATIENT 15.2 SEC (9.8-11.6)
[2017-01-23 08:00] VITALS: BP 109/64; PULSE 75; RESP 18; TEMP 98.8; O2SAT 94
[2017-01-23] MEDS: guaiFENesin E.R. 600 MG TAB PO SCH (08:54)
[2017-01-23] MEDS: METOPROLOL TARTRATE 100 MG TAB PO SCH (08:54)
[2017-01-23] MEDS: DILTIAZEM-CD 240 MG CAP ER PO SCH (08:54)
[2017-01-23] MEDS: DIAZEPAM 2 MG TAB PO SCH (08:54)
[2017-01-23] MEDS: POLYETHYLENE GLYCOL 17 GM PKG PO SCH (08:55)
[2017-01-23] MEDS: AMIODARONE 200 MG TAB PO SCH (08:55)
[2017-01-23] MEDS: MEGESTROL ACETATE SUSP 400 MG/10 ML CUP PO SCH (08:55)
[2017-01-23] MEDS: PANTOPRAZOLE SOD 40 MG DELAYED RELEASE TAB PO SCH (08:55)
[2017-01-23] MEDS: DOCUSATE SODIUM 50 MG/SENNA 8.6 MG TAB PO SCH (08:55)
[2017-01-23] MEDS: LACTOBACILLUS ACIDOPHILUS TAB PO SCH ×2 (08:57→12:24)
[2017-01-23] MEDS: SODIUM CHLORIDE 0.9% FLUSH 10 ML FLUSH IV FLUSH SCH (08:58)
[2017-01-23 12:00] VITALS: BP 136/65; PULSE 75; RESP 18; TEMP 96.9; O2SAT 96
[2017-01-23] MEDS: LEVOFLOXACIN/DEXTROSE 250 MG/50 ML IV SCH (12:24)
--- NOTE | 2017-01-23 15:14 | HHI.PR ---
Subjective Remarks Seen in her bedroom discussed with nurse Miss Zheng and with Drain Technician she has her INR subtherapeutic, will discharge Home on Lovenox bridge to therapeutic INR she will need to go with [facility] to continue following her INR at home on daily bases. had a BM today. Objective Vital Signs Date Time Temp Pulse Resp B/P Pulse Ox O2 Delivery O2 Flow Rate FiO2 01/23/17 12:00 96.9 75 18 136/65 96 01/23/17 08:20 Room Air 01/23/17 08:00 98.8 75 18 109/64 94 01/23/17 07:48 92 21 01/23/17 04:35 98.2 68 18 105/54 94 01/22/17 23:54 93 21 01/22/17 23:47 98.6 69 16 124/59 94 01/22/17 20:20 98.0 91 16 157/73 93 01/22/17 20:15 Room Air 01/22/17 20:00 66 01/22/17 16:00 99.9 71 16 147/64 97 01/22/17 15:35 97 21 I/O 01/22/17 01/22/17 01/22/17 01/23/17 01/23/17 01/23/17 07:00 15:00 23:00 07:00 15:00 23:00 Intake Total 240 ml 120 ml 120 ml 480 ml Output Total 900 ml 200 ml 600 ml Balance 240 ml -780 ml -80 ml -120 ml Intake Oral 240 ml 120 ml 120 ml 480 ml Output Urine Total 900 ml 200 ml 600 ml # Voids 4 # Bowel Movements 0 0 1 Result Diagram: 01/21/17 1056 01/22/17 0607 Imaging Last Impressions Abdomen X-Ray 01/22/17 0000 Signed Impressions: Service Date/Time: Sunday, January 22, 2017 17:41 - CONCLUSION: Nonspecific bowel gas pattern with some moderate gaseous distention of the colon with air and stool. No significant change compared to 01/18/2017 Checo Ybarra MD Pelvis X-Ray 01/18/17 0000 Signed Impressions: Service Date/Time: Wednesday, January 18, 2017 16:21 - CONCLUSION: 1. No acute bony abnormalities. Ileus in lower abdomen. Alvino Stern MD Chest X-Ray 01/18/17 0000 Signed Impressions: Service Date/Time: Wednesday, January 18, 2017 08:02 - CONCLUSION: No significant change has occurred. Milind Keane MD Thoracic Spine CT 01/11/17 0000 Signed Impressions: Service Date/Time: Wednesday, January 11, 2017 15:13 - CONCLUSION: No acute abnormality is seen in the thoracic spine. Bilateral pleural effusions are present. Edu Chang MD Cervical Spine CT 01/11/17 0000 Signed Impressions: Service Date/Time: Wednesday, January 11, 2017 15:13 - CONCLUSION: 1. No acute bony abnormality is seen. 2. Degenerative change at multiple levels as described above. Edu Chang MD Procedures None Other Results Laboratory Tests Test 01/21/17 01/22/17 01/23/17 10:56 06:07 06:05 White Blood Count 8.7 TH/MM3 Red Blood Count 3.60 MIL/MM3 Hemoglobin 10.0 GM/DL Hematocrit 30.1 % Mean Corpuscular Volume 83.6 FL Mean Corpuscular Hemoglobin 27.7 PG Mean Corpuscular Hemoglobin 33.1 % Concent Red Cell Distribution Width 15.0 % Platelet Count 256 TH/MM3 Mean Platelet Volume 8.7 FL Neutrophils (%) (Auto) 74.6 % Lymphocytes (%) (Auto) 15.3 % Monocytes (%) (Auto) 7.0 % Eosinophils (%) (Auto) 2.8 % Basophils (%) (Auto) 0.3 % Neutrophils # (Auto) 6.5 TH/MM3 Lymphocytes # (Auto) 1.3 TH/MM3 Monocytes # (Auto) 0.6 TH/MM3 Eosinophils # (Auto) 0.2 TH/MM3 Basophils # (Auto) 0.0 TH/MM3 CBC Comment DIFF FINAL Differential Comment Phosphorus Level 1.9 MG/DL Magnesium Level 1.8 MG/DL Total Bilirubin 0.4 MG/DL Aspartate Amino Transf 14 U/L (AST/SGOT) Alanine Aminotransferase 24 U/L (ALT/SGPT) Alkaline Phosphatase 49 U/L Total Protein 5.8 GM/DL Albumin 2.5 GM/DL Sodium Level 138 MEQ/L Potassium Level 4.1 MEQ/L Chloride Level 105 MEQ/L Carbon Dioxide Level 24.9 MEQ/L Anion Gap 8 MEQ/L Blood Urea Nitrogen 14 MG/DL Creatinine 1.05 MG/DL Estimat Glomerular Filtration 49 ML/MIN Rate Random Glucose 100 MG/DL Calcium Level 8.8 MG/DL Prothrombin Time 15.2 SEC Prothromb Time International 1.4 RATIO Ratio Objective Remarks GENERAL: NAD, A&Ox3 HEAD: Normocephalic. NECK: Supple, trachea midline. No lymphadenopathy. EYES: No scleral icterus. No injection or drainage. CARDIOVASCULAR: Regular rate and rhythm without murmurs, gallops, or rubs. RESPIRATORY: Breath sounds equal bilaterally. No accessory muscle use. soft crackles on both bases. GASTROINTESTINAL: Abdomen soft, non-tender, nondistended. MUSCULOSKELETAL: No cyanosis, or edema. SKIN: Warm and dry. NEURO: No focal neurological deficits. Medications and IVs Current Medications Medications (Trade) Dose Ordered Sig/Ricky Route Start Time Stop Time Status Last Admin (Synthroid) 50 mcg DAILY@06 PO 01/12/17 06:00 01/23/17 06:13 (Lopressor) 100 mg BID PO 01/11/17 21:00 01/23/17 08:54 (NS Flush) 2 ml UNSCH PRN IV FLUSH 01/11/17 12:30 01/11/17 17:51 (NS Flush) 2 ml BID IV FLUSH 01/11/17 21:00 01/23/17 08:58 (Tylenol) 650 mg Q4H PRN PO 01/11/17 12:30 (Zofran Inj) 4 mg Q6H PRN IVP 01/11/17 12:30 01/22/17 21:29 (Narcan Inj) 0.4 mg UNSCH PRN IV 01/11/17 12:30 (Hansa-Colace) 1 tab BID PO 01/11/17 21:00 01/23/17 08:55 (Milk Of Magnesia Liq) 30 ml Q12H PRN PO 01/11/17 12:30 01/22/17 12:12 (Senokot) 17.2 mg Q12H PRN PO 01/11/17 12:30 01/17/17 15:44 (Dulcolax Supp) 10 mg DAILY PRN RECTAL 01/11/17 12:30 01/18/17 09:10 (Lactulose Liq) 30 ml DAILY PRN PO 01/11/17 12:30 01/23/17 06:13 (Carafate Liq) 1 gm ACHS PO 01/11/17 16:00 01/23/17 12:23 ([place] 5-325 Mg) 1 tab Q4H PRN PO 01/11/17 15:00 01/18/17 12:54 (Mucinex Er) 600 mg BID PO 01/11/17 15:00 01/23/17 08:54 (Megace Liq) 400 mg DAILY PO 01/11/17 15:00 01/23/17 08:55 (Valium) 2 mg Q12HR PO 01/11/17 21:00 01/23/17 08:54 (Cardizem Cd) 240 mg DAILY PO 01/13/17 10:00 01/23/17 08:54 (Coumadin) 1 mg DAILY@1600 PO 01/15/17 16:00 01/22/17 14:44 (Cordarone) 200 mg DAILY PO 01/17/17 09:00 01/23/17 08:55 (Protonix) 40 mg DAILY PO 01/17/17 09:00 01/23/17 08:55 Lactobacillus Acidophilus 1 tab 1 tab TID PO 01/18/17 13:00 01/23/17 12:24 Levofloxacin/ Dextrose 50 ml @ 50 mls/hr Q24H IV 01/21/17 12:00 01/23/17 12:24 (Coumadin Consult Pharmacy) 0 ml @ 0 mls/hr UNSCH OTHER 01/21/17 15:15 (Miralax) 17 gm DAILY PO 01/21/17 15:15 01/23/17 08:55 A/P Assessment and Plan 86-year-old female admitted for CHF exacerbation, hypoxia, and weakness. Baseline history of atrial fibrillation, on Coumadin and CHF, pacemaker, hypertension, GERD, hypothyroidism. Ileus now present. Advance diet to full liquid diet. Monitor for bowel movement. Continue Colace and laxatives and when necessary enema. Acute on chronic systolic CHF exacerbation Now resolved. okay to discharge from Cardiology standpoint. Cardiology consulted, recommended conservative management given her advanced age , sedentary lifestyle Continue beta chip, no MIHAI-I or ARB with her renal insufficiency received diuretics. Patient's hypoxemia resolved. Patient currently on room air. Acute kidney injury Upon review of records of previous hospitalizations, the patient has had a creatinine baseline of 1.1. Likely chronic kidney disease stage III. Continue to monitor renal function, strict I's and O's Continue diuresis and follow renal function for now Creatinine down to 1.14 likely at the patient's baseline. Atrial fibrillation Rate controlled Continue Coumadin today subtherapeutic 1.4 will continue Warfarin at her home dose in 2 mg daily will continue PT and INR at home has to follow with PCP and Cardiology as outpatient, continue Lovenox 1 mg per Kilogram and as per Cardiology continue Amiodarone 200 mg daily and continue home medicines, continue Lovenox bridge to therapeutic INR Hypertension Stable. Continue antihypertensive medications. Continue metoprolol, Cardizem Hypothyroidism Continue Synthroid, stable Weakness Continue PT Will likely need home health physical therapy. Ileus/constipation given Lactulose, developed abdominal pain asked for KUB did not found Ileus. Improved had BM this morning. Hyponatremia Likely hypovolemic hyponatremia, now resolved with sodium up to 138. Treated with diuretics. DVT Prophylaxis On Coumadin and Lovenox at home. GI prophylaxis - on sucralfate Discharge Planning okay to discharge home today. Ezekiel Nichols MD Jan 23, 2017 15:14
[2017-01-23] MEDS ORDERED: LACT PO (15:25)
[2017-01-23] MEDS ORDERED: AMIO200T PO (15:25)
[2017-01-23] MEDS ORDERED: guaiFENesin ER PO (15:25)
[2017-01-23] MEDS ORDERED: MEGE40SU PO (15:25)
[2017-01-23] MEDS ORDERED: CARD240C6 PO (15:25)
[2017-01-23] MEDS ORDERED: HYDR-3516 PO (15:25)
[2017-01-23] MEDS ORDERED: ENOX60P SQ (15:26)
--- NOTE | 2017-01-23 15:32 | HHI.FF ---
Face to Face Verification Diagnosis: (1) Hypertension (2) Renal failure (3) Pacemaker (4) Pacemaker (5) Paroxysmal a-fib (6) Generalized weakness Physical Therapy Order: Evaluate and Treat, Improve ambulation, Strength and gait training Home Health Nursing Order: Medical education Signs/symptoms of disease process CHF education Medication education-adverse effect Nursing assessment with vital signs Instructions: PATIENT ON WARFARIN WITH INR GOAL 2 TO 3, HOLD WARFARIN IF INR IN 3 OR OVER ALSO CONTINUE LOVENOX SUBCUTANEOUS DAILY EVERY 12 HOURS UNTIL INR IN 2 OR OVER THEN DISCONTINUE LOVENOX AND CONTINUE WARFARIN WITH THE INR GOAL ALREADY RECOMMENDED PERFORM DAILY PT AND INR AND FOLLOW TITRATION WITH PCP I have seen patient Jaye Paul on 01/23/17. My clinical findings support the need for the requested home health care services because: Ltd mobility - disease progression Deconditioned w/ increased weakness I certify that my clinical findings support that this patient is homebound because: Unsafe to leave home unassisted Ezekiel Nichols MD Jan 23, 2017 15:32
[2017-01-23] MEDS ORDERED: WARFARIN SOD 5 MG TAB PO ONE (16:00)
--- NOTE | 2017-01-23 16:03 | HHI.DS ---
Discharge Summary Admission Date Jan 13, 2017 at 09:40 Discharge Date: Jan 23, 2017 Admitting Diagnosis CHF exacerbation (1) Paroxysmal a-fib ICD Code: I48.0 Diagnosis: Secondary (2) Pacemaker ICD Code: Z95.0 Diagnosis: Secondary (3) Hypertension ICD Code: I10 Diagnosis: Secondary (4) CHF exacerbation ICD Code: I50.9 Diagnosis: Principal Procedures none Brief History - From Admission 86yo F with PMH of afib on coumadin, CHF presents to the ED with c/o worsening sob. Pt was seen here on 12/28/16 and was given lasix and discharged home. Pt followed up with PMD on Friday and states that he said she cannot be on Lasix because of her renal function. Added a blood pressure medication that she has not picked up yet. States her sob has been worsened for 1 week and she cannot lie down and sleep. Denies any fever, cough, chest pain, n/v, abdominal pain, focal weakness or numbness. seen in her bedroom in Emergency room the patient states she has discomfort in her abdomen but no pain, has pain on her Thoracic area, not able to eat or eat well. was found to have increased BNP in ER today, tells me her Primary vaccines solutions specialist is Doctor Jansen and wants to see him asked for consult. CBC/BMP: 01/21/17 1056 01/22/17 0607 Significant Findings Laboratory Tests Test 01/20/17 01/21/17 01/22/17 01/23/17 20:04 10:56 06:07 06:05 Prothrombin Time 20.1 SEC 15.2 SEC (9.8-11.6) (9.8-11.6) Red Blood Count 3.60 MIL/MM3 (4.00-5.30) Hemoglobin 10.0 GM/DL (11.6-15.3) Hematocrit 30.1 % (35.0-46.0) Neutrophils (%) (Auto) 74.6 % (16.0-70.0) Creatinine 1.14 MG/DL 1.05 MG/DL (0.50-1.00) (0.50-1.00) Estimat Glomerular Filtration 45 ML/MIN (>89) 49 ML/MIN (>89) Rate Random Glucose 124 MG/DL (74-106) Calcium Level 8.1 MG/DL (8.5-10.1) Phosphorus Level 1.9 MG/DL (2.5-4.9) Aspartate Amino Transf 14 U/L (15-37) (AST/SGOT) Total Protein 5.8 GM/DL (6.4-8.2) Albumin 2.5 GM/DL (3.4-5.0) Imaging Last Impressions Abdomen X-Ray 01/22/17 0000 Signed Impressions: Service Date/Time: Sunday, January 22, 2017 17:41 - CONCLUSION: Nonspecific bowel gas pattern with some moderate gaseous distention of the colon with air and stool. No significant change compared to 01/18/2017 Checo Ybarra MD Pelvis X-Ray 01/18/17 0000 Signed Impressions: Service Date/Time: Wednesday, January 18, 2017 16:21 - CONCLUSION: 1. No acute bony abnormalities. Ileus in lower abdomen. Alvino Stern MD Chest X-Ray 01/18/17 0000 Signed Impressions: Service Date/Time: Wednesday, January 18, 2017 08:02 - CONCLUSION: No significant change has occurred. Milind Keane MD Thoracic Spine CT 01/11/17 0000 Signed Impressions: Service Date/Time: Wednesday, January 11, 2017 15:13 - CONCLUSION: No acute abnormality is seen in the thoracic spine. Bilateral pleural effusions are present. Edu Chang MD Cervical Spine CT 01/11/17 0000 Signed Impressions: Service Date/Time: Wednesday, January 11, 2017 15:13 - CONCLUSION: 1. No acute bony abnormality is seen. 2. Degenerative change at multiple levels as described above. Edu Chang MD PE at Discharge GENERAL: NAD, A&Ox3 HEAD: Normocephalic. NECK: Supple, trachea midline. No lymphadenopathy. EYES: No scleral icterus. No injection or drainage. CARDIOVASCULAR: Regular rate and rhythm without murmurs, gallops, or rubs. RESPIRATORY: Breath sounds equal bilaterally. No accessory muscle use. soft crackles on both bases. GASTROINTESTINAL: Abdomen soft, non-tender, nondistended. MUSCULOSKELETAL: No cyanosis, or edema. SKIN: Warm and dry. NEURO: No focal neurological deficits. Hospital Course Seen in her bedroom discussed with nurse Miss Zheng and with Seaming Machine Operator she has her INR subtherapeutic, will discharge Home on Lovenox bridge to therapeutic INR she will need to go with [facility] to continue following her INR at home on daily bases. had a BM today. Assessment and Plan 86-year-old female admitted for CHF exacerbation, hypoxia, and weakness. Baseline history of atrial fibrillation, on Coumadin and CHF, pacemaker, hypertension, GERD, hypothyroidism. Ileus now present. Advance diet to full liquid diet. Monitor for bowel movement. Continue Colace and laxatives and when necessary enema. Acute on chronic systolic CHF exacerbation Now resolved. okay to discharge from Cardiology standpoint. Cardiology consulted, recommended conservative management given her advanced age , sedentary lifestyle Continue beta chip, no MIHAI-I or ARB with her renal insufficiency received diuretics. Patient's hypoxemia resolved. Patient currently on room air. Acute kidney injury Upon review of records of previous hospitalizations, the patient has had a creatinine baseline of 1.1. Likely chronic kidney disease stage III. Continue to monitor renal function, strict I's and O's Continue diuresis and follow renal function for now Creatinine down to 1.14 likely at the patient's baseline. Atrial fibrillation Rate controlled Continue Coumadin today subtherapeutic 1.4 will continue Warfarin at her home dose in 2 mg daily will continue PT and INR at home has to follow with PCP and Cardiology as outpatient, continue Lovenox 1 mg per Kilogram and as per Cardiology continue Amiodarone 200 mg daily and continue home medicines, continue Lovenox bridge to therapeutic INR Hypertension Stable. Continue antihypertensive medications. Continue metoprolol, Cardizem Hypothyroidism Continue Synthroid, stable Weakness Continue PT Will likely need home health physical therapy. Ileus/constipation given Lactulose, developed abdominal pain asked for KUB did not found Ileus. Improved had BM this morning. Hyponatremia Likely hypovolemic hyponatremia, now resolved with sodium up to 138. Treated with diuretics. DVT Prophylaxis On Coumadin and Lovenox at home. GI prophylaxis - on sucralfate Discharge Planning okay to discharge home today. Pt Condition on Discharge: Good Discharge Disposition: Disch w/ Home Health Serv Discharge Time: > 30 minutes Discharge Instructions DIET: Follow Instructions for: Heart Healthy Diet Activities you can perform: Regular-No Restrictions Ezekiel Nichols MD Jan 23, 2017 16:03
== END 2017-01-23 18:41 | disposition home health service (06) | DRG 291 ==
LOC: NEPC 10:38 → NEDA 12:26 → NEPHCDU 13:48 → OBSVTOIN 01-13 09:40 → N04B 01-13 21:44
PROVIDERS: ADMIT Internal Medicine; ATTEND Internal Medicine
DX: I13.0 Hypertensive heart and chronic kidney disease with heart failure and stage 1 through stage 4 chronic kidney disease, or unspecified chronic kidney disease (principal); I50.43 Acute on chronic combined systolic (congestive) and diastolic (congestive) heart failure; N17.9 Acute kidney failure, unspecified; K56.7 Ileus, unspecified; I48.91 Unspecified atrial fibrillation; E87.1 Hypo-osmolality and hyponatremia; Z79.01 Long term (current) use of anticoagulants; E03.9 Hypothyroidism, unspecified; Z95.0 Presence of cardiac pacemaker; K21.9 Gastro-esophageal reflux disease without esophagitis; N18.3 Chronic kidney disease, stage 3 (moderate); R32 Unspecified urinary incontinence; Z77.22 Contact with and (suspected) exposure to environmental tobacco smoke (acute) (chronic); I34.0 Nonrheumatic mitral (valve) insufficiency; K59.00 Constipation, unspecified; R09.02 Hypoxemia
CPT/HCPCS: 71010; 72125; 72128; 72170; 74000; 80048; 80053; 80076; 81001; 82550; 83735; 83880; 84100; 84484; 85025; 85027; 85610; 85730; 93005; 93306; 94150; 94620; 94640; 94664; 96374; G0378; G8987-GP; G8988-GP; J1940; J1956; J2405; J7644

== ENCOUNTER 2017-02-09 04:39 | Inpatient (IN) | payer OTHER, MEDICARE ==
[2017-02-09] VITALS (22 sets, daily range): BP systolic 97–187; BP diastolic 46–80; PULSE 50–94; RESP 18–20; TEMP 97.7–99.5; O2SAT 90–97
[~2017-02-09] VITALS: Ht 160 cm; Wt 56.0 kg
[~2017-02-09 04:39] MED LIST changes: +AMIO200T PO; -AMLO5 PO; +CARD240C6 PO; +ENOX60P SQ; -FURO20TA PO; +HYDR-3516 PO; +LACT PO; +LEVO50TA4 PO; -LEVO88TA2 PO; -LOSA100T3 PO; +MEGE40SU PO; -POTA20TA5 PO; -SYMB160A INH; -VENTAER INH; +guaiFENesin ER PO
[2017-02-09] MEDS ORDERED: SODIUM CHLORIDE 0.9% FLUSH 10 ML FLUSH IVF PRN (05:15)
--- NOTE | 2017-02-09 05:20 | PD ---
HPI Chief Complaint: Respiratory Symptoms Time Seen by Provider: 04:51 Travel History International Travel<30 days: No Contact w/Intl Traveler<30days: No Traveled to known affect area: No History of Present Illness HPI 86yo F with PMH of afib on coumadin, CHF presents to the ED with c/o sob for a few days. +Cough. Denies any fever, chest pain, n/v, abdominal pain, focal weakness or numbness. Pt has bilateral lower extremity swelling and states she was taken off lasix a while ago. Pt was admitted her 01/13/17-01/23/17 for acute on chronic CHF exacerbation. Dr. Jansen is her milk of lime slaker. Pt was hypoxic on room air at 84% and was given 3 liters and saturating at 93%. PFSH Past Medical History Hx Anticoagulant Therapy: Yes (COUMADIN) Arthritis: Yes Asthma: No Atrial Fibrillation: Yes Autoimmune Disease: No Blood Disorders: No Heart Rhythm Problems: Yes Cancer: No Cardiovascular Problems: Yes (PACEMAKER/CHF) High Cholesterol: No Chemotherapy: No Chest Pain: Yes Congestive Heart Failure: Yes COPD: No Cerebrovascular Accident: No Diabetes: No Diminished Hearing: Yes Endocrine: Yes Gastrointestinal Disorders: No GERD: Yes (Occasionally) Genitourinary: Yes (Incontinence) Headaches: No Hiatal Hernia: No Heparin Induced Thrombocytopen: No Hypertension: Yes (PMH) Immune Disorder: No Implanted Vascular Access Dvce: Yes (PACEMAKER) Kidney Stones: No Musculoskeletal: No Neurologic: No Psychiatric: No Reproductive: No Respiratory: Yes Migraines: No Radiation Therapy: No Renal Failure: No Seizures: No Sickle Cell Disease: No Sleep Apnea: No Thyroid Disease: Yes (Hypothyroidism) Ulcer: No Tetanus Vaccination: Unknown Influenza Vaccination: Yes Menopausal: Yes : 3 Para: 3 Past Surgical History Abdominal Surgery: No AICD: No Arteriovenous Shunt: Yes Body Medical Devices: pacemaker Cardiac Surgery: Yes (Pacemaker) Ear Surgery: No Endocrine Surgery: No Eye Surgery: Yes (Bilateral cataract removal with Implants) Genitourinary Surgery: Yes (Bladder Mesh/Pesserie) Gynecologic Surgery: No Hysterectomy: Yes Insulin Pump: No Joint Replacement: No Neurologic Surgery: No Oral Surgery: Yes (Teeth removed) Pacemaker: Yes Thoracic Surgery: No Other Surgery: Yes Social History Alcohol Use: No (PT DENIES) Tobacco Use: No Substance Use: No Allergies-Medications (Allergen,Severity, Reaction): Coded Allergies: No Known Allergies (Unverified , 02/09/17) Reported Meds & Prescriptions Reported Meds & Active Scripts Active Lovenox Inj (Enoxaparin Sodium) 60 Mg/0.6 Ml Syr 60 Mg SQ BID USE ONE VIAL EVERY 12 HOURS SUBCUTANEOUSLY, AND FOLLOW INR ON DAILY BASIS, DISCONTINUE LOVENOX USE ONCE INR IN 2 OR OVER AND CONTINUE BY MOUTH WARFARIN, NEEDS HOME HEALTH CARE TO CONTINUE DAILY PT AND INR [guaiFENesin ER] 600 MG Tabcr 600 Mg PO BID Megestrol Liq (Megestrol Acetate) 40 Mg/Ml Susp 400 Mg PO DAILY Acidophilus/l-Sporogenes (Lactobacillus Acidophilus) 1 Tab Tab 1 Tab PO TID Hydrocodone-Acetaminophen 5-325 mg Tab 1 Tab PO Q4H PRN Do not take this medicine if you will drive a car or use a machine, only use it when resting at home. Cardizem CD 24 HR (Diltiazem CD 24 HR) 240 Mg Caper 240 Mg PO DAILY Amiodarone (Amiodarone HCl) 200 Mg Tab 200 Mg PO DAILY Combivent Respimat Inh (Ipratropium-Albuterol Inh) 20-100 Long Term/Act Aero 1 Puff INH QID Reported Levothyroxine (Levothyroxine Sodium) 50 Mcg Tab 50 Mcg PO DAILY Metoprolol Tartrate 100 Mg Tab 100 Mg PO BID Warfarin 2 Mg Tab 2 Mg PO DAILY every day but friday Pantoprazole (Pantoprazole Sodium) 40 Mg Tab 40 Mg PO DAILY Review of Systems Except as stated in HPI: all other systems reviewed are Neg Physical Exam Narrative GENERAL: 86yo F in moderate distress. SKIN: Focused skin assessment warm/dry. HEAD: Atraumatic. Normocephalic. EYES: Pupils equal and round. No scleral icterus. No injection or drainage. ENT: No nasal bleeding or discharge. Mucous membranes pink and moist. NECK: Trachea midline. No JVD. CARDIOVASCULAR: Regular rate and rhythm. No murmur appreciated. RESPIRATORY: + accessory muscle use. +Crackle in left lung base. Decreased breath sound in right lower lung. GASTROINTESTINAL: Abdomen soft, non-tender, nondistended. No rebound tenderness or guarding. MUSCULOSKELETAL: No obvious deformities. No clubbing. No cyanosis. +Bilateral lower ext edema. NEUROLOGICAL: Awake and alert. No obvious cranial nerve deficits. Motor grossly within normal limits. Normal speech. PSYCHIATRIC: Appropriate mood and affect; insight and judgment normal. Data Data Last Documented VS Vital Signs Date Time Temp Pulse Resp B/P Pulse Ox O2 Delivery O2 Flow Rate FiO2 02/09/17 06:14 50 161/77 93 Nasal Cannula 4 02/09/17 04:42 97.9 20 Orders Complete Blood Count With Diff (02/09/17 05:14) Basic Metabolic Panel (Bmp) (02/09/17 05:14) B-Type Natriuretic Peptide (02/09/17 05:14) Act Partial Throm Time (Ptt) (02/09/17 05:14) Prothrombin Time / Inr (Pt) (02/09/17 05:14) Troponin I (02/09/17 05:14) Blood Culture (02/09/17 05:14) Iv Access Insert/Monitor (02/09/17 05:14) Ecg Monitoring (02/09/17 05:14) Oximetry (02/09/17 05:14) Oxygen Administration (02/09/17 05:14) Chest, Single Ap (02/09/17 05:14) Sodium Chloride 0.9% Flush (Ns Flush) (02/09/17 05:15) Lactic Acid Sepsis Protocol (02/09/17 05:14) Ondansetron Inj (Zofran Inj) (02/09/17 06:15) Furosemide Inj (Lasix Inj) (02/09/17 06:30) Urinary Catheter Insert/Apply (02/09/17 06:19) Admit To Inpatient (02/09/17 ) Vital Signs (Adult) Q4H (02/09/17 06:39) Activity Oob With Assistance (02/09/17 06:39) Worship Pastor / Telemetry .CONTINUOUS (02/09/17 06:39) Intake + Output ANDREA.QSHIFT (02/09/17 06:39) Diet Heart Healthy (02/09/17 Breakfast) Sodium Chloride 0.9% Flush (Ns Flush) (02/09/17 06:45) Sodium Chloride 0.9% Flush (Ns Flush) (02/09/17 09:00) Ondansetron Inj (Zofran Inj) (02/09/17 06:45) Comprehensive Metabolic Panel (02/10/17 06:00) Complete Blood Count With Diff (02/10/17 06:00) Prothrombin Time / Inr (Pt) (02/10/17 06:00) Pharmacologic Contraindication (02/09/17 06:39) Acetaminophen (Tylenol) (02/09/17 06:45) Acetamin-Hydrocod 325-5 Mg ([place] 5-325 (02/09/17 06:45) Morphine Inj (Morphine Inj) (02/09/17 06:45) Docusate Sodium-Senna (Hansa-Colace) (02/09/17 09:00) Magnesium Hydroxide Liq (Milk Of Magnesi (02/09/17 06:45) Sennosides (Senokot) (02/09/17 06:45) Bisacodyl Supp (Dulcolax Supp) (02/09/17 06:45) Lactulose Liq (Lactulose Liq) (02/09/17 06:45) Inpatient Certification (02/09/17 ) Amiodarone (Cordarone) (02/09/17 09:00) Diltiazem Cd (Cardizem Cd) (02/09/17 09:00) Levothyroxine (Synthroid) (02/09/17 07:00) Megestrol Liq (Megace Liq) (02/09/17 09:00) Metoprolol Tartrate (Lopressor) (02/09/17 09:00) Pantoprazole (Protonix) (02/09/17 09:00) Albuterol Hfa Inh (Ventolin Hfa Inh) (02/09/17 09:00) Guaifenesin Er (Mucinex Er) (02/09/17 09:00) Admit Order (Ed Use Only) (02/09/17 06:45) Labs Laboratory Tests Test 02/09/17 02/09/17 05:27 05:33 White Blood Count 8.3 TH/MM3 Red Blood Count 4.30 MIL/MM3 Hemoglobin 11.8 GM/DL Hematocrit 36.3 % Mean Corpuscular Volume 84.4 FL Mean Corpuscular Hemoglobin 27.5 PG Mean Corpuscular Hemoglobin 32.6 % Concent Red Cell Distribution Width 15.3 % Platelet Count 291 TH/MM3 Mean Platelet Volume 8.8 FL Neutrophils (%) (Auto) 72.4 % Lymphocytes (%) (Auto) 17.5 % Monocytes (%) (Auto) 6.6 % Eosinophils (%) (Auto) 2.8 % Basophils (%) (Auto) 0.7 % Neutrophils # (Auto) 6.0 TH/MM3 Lymphocytes # (Auto) 1.5 TH/MM3 Monocytes # (Auto) 0.5 TH/MM3 Eosinophils # (Auto) 0.2 TH/MM3 Basophils # (Auto) 0.1 TH/MM3 CBC Comment DIFF FINAL Differential Comment Prothrombin Time 80.0 SEC Prothromb Time International 6.7 RATIO Ratio Activated Partial 61.2 SEC Thromboplast Time Sodium Level 137 MEQ/L Potassium Level 4.4 MEQ/L Chloride Level 105 MEQ/L Carbon Dioxide Level 23.6 MEQ/L Anion Gap 8 MEQ/L Blood Urea Nitrogen 22 MG/DL Creatinine 1.10 MG/DL Estimat Glomerular Filtration 47 ML/MIN Rate Random Glucose 98 MG/DL Calcium Level 8.7 MG/DL Troponin I LESS THAN 0.02 NG/ML B-Type Natriuretic Peptide 2191 PG/ML Lactic Acid Level 0.9 mmol/L MDM Medical Decision Making Medical Screen Exam Complete: Yes Emergency Medical Condition: Yes Differential Diagnosis CHF exacerbation vs. pneumonia Narrative Course 86yo F with sob for a few days. Pt saturating at 84% on RA but 93-94% on 3-4 liters NC. Pt is tachypneic but does not want to use the BIPAP. States she feels better on the oxygen. Labs reviewed, no leukocytosis. BNP elevated at 2191. Troponin negative. INR is supertherapeutic at 6.7. Pt denies any bleeding. Hemaprompt negative. Last coumadin yesterday. Will hold coumadin dose. CXR showed worsening basilar infiltrates and effusions. Clinically it is more CHF exacerbation so lasix 40mg IV given. Osorio placed. Discussed with Dr. Palma and accepted to her service in [facility]. Critical Care Narrative Aggregate critical care time was 50 minutes. Time to perform other separately billable procedures was not included in the critical care time. My time did not include minutes spent treating any other patients simultaneously or on activities that did not directly contribute to the patient's treatment. The services I provided to this patient were to treat and/or prevent clinically significant deterioration that could result in: cardiovascular collapse or . I provided critical care services requiring my management, as noted below: Chart data review, documentation time, medication orders and management, vital sign assessments/reviewing monitor data, ordering and reviewing lab tests, ordering and interpreting/reviewing x-rays and diagnostic studies, care of the patient and discussion of the patient with the admitting physicians. HemaPrompt Point of Care Internal Pos. & Neg. Controls: Passed Fecal Specimen Occult Blood: Negative Diagnosis Primary Impression: CHF (congestive heart failure) Qualified Code: I50.9 - Acute on chronic congestive heart failure, unspecified congestive heart failure type Admitting Information Admitting Physician Requests: Ara Nava DO Feb 09, 2017 05:20
[2017-02-09 05:41] LABS: BASOPHIL # 0.1 TH/MM3 (0-0.2); BASOPHIL % 0.7 % (0.0-2.0); EOSINOPHIL # 0.2 TH/MM3 (0-0.4); EOSINOPHIL % 2.8 % (0.0-4.0); HEMATOCRIT 36.3 % (35.0-46.0); HEMO FLAGS DIFF FINAL; LYMPH % 17.5 % (9.0-44.0); LYMPHOCYTE # 1.5 TH/MM3 (1.0-4.8); MEAN CELL VOLUME 84.4 FL (80.0-100.0); MEAN CORPUSCULAR HEMOGLOBIN 27.5 PG (27.0-34.0); MEAN CORPUSCULAR HGB CONC 32.6 % (32.0-36.0); MONO % 6.6 % (0.0-8.0); NEUT % 72.4 % (16.0-70.0); PLATELET COUNT 291 TH/MM3 (150-450); RED CELL DISTRIBUTION WIDTH 15.3 % (11.6-17.2); WHITE BLOOD COUNT 8.3 TH/MM3 (4.0-11.0)
[2017-02-09 05:54] LABS: APTT (PATIENT) 61.2 SEC (24.3-30.1)
[2017-02-09 06:02] LABS: ANION GAP 8 MEQ/L (5-15); BICARBONATE 23.6 MEQ/L (21.0-32.0); BLOOD UREA NITROGEN 22 MG/DL (7-18); CHLORIDE 105 MEQ/L (98-107); GLOMERULAR FILTRATION RATE 47 ML/MIN (>89); INTERNATIONAL NORMALIZED RATIO 6.7 RATIO; POTASSIUM 4.4 MEQ/L (3.5-5.1); SODIUM (NA) 137 MEQ/L (136-145)
[2017-02-09] MEDS ORDERED: ONDANSETRON HCL 4 MG/2 ML VIAL IV PUSH ONE (06:15)
[2017-02-09] MEDS ORDERED: FUROSEMIDE 40 MG/4 ML VIAL IV PUSH ONE (06:30)
--- NOTE | 2017-02-09 06:30 | RADRPT ---
EXAM DATE/TIME: 02/09/2017 05:23 [facility] COMPARISON: CHEST SINGLE AP, January 18, 2017, 8:02. INDICATIONS : Shortness of breath MEDICAL HISTORY : Hypertension. Congestive heart failure. Gastroesophageal reflux disease. Angina, Hypothyroid SURGICAL HISTORY : Pacemaker. Arteriovenous shunt ENCOUNTER: Initial ACUITY: 1 day PAIN SCORE: 8/10 LOCATION: Bilateral chest FINDINGS: Pacemaker device is noted with control pack over the left chest. A lateral basilar infiltrates and ef fusions are again noted, slightly worse than on prior. Cardiac contours are stable. CONCLUSION: Worsening basilar infiltrates and effusions. Edu Stuart MD on February 09, 2017 at 6:27 Board Certified Radiologist. This report was verified electronically.
[2017-02-09] MEDS ORDERED: ACETAMINOPHEN 325 MG TAB PO PRN (06:45)
[2017-02-09] MEDS ORDERED: BISACODYL 10 MG SUPP RECTAL PRN (06:45)
[2017-02-09] MEDS ORDERED: MAGNESIUM HYDROXIDE SUSP 30 ML CUP PO PRN (06:45)
[2017-02-09] MEDS ORDERED: LACTULOSE SYRUP 20 GM/30 ML CUP PO PRN (06:45)
[2017-02-09] MEDS ORDERED: ONDANSETRON HCL 4 MG/2 ML VIAL IVP PRN (06:45)
[2017-02-09] MEDS ORDERED: SENNOSIDES 8.6 MG TAB PO PRN (06:45)
[2017-02-09] MEDS ORDERED: MORPHINE SULFATE 4 MG/ML INJ IV PRN (06:45)
[2017-02-09] MEDS ORDERED: SODIUM CHLORIDE 0.9% FLUSH 10 ML FLUSH IV FLUSH PRN (06:45)
[2017-02-09] MEDS: LEVOTHYROXINE SODIUM 50 MCG TAB PO SCH (07:18)
[2017-02-09] MEDS: DOCUSATE SODIUM 50 MG/SENNA 8.6 MG TAB PO SCH ×2 (09:00→20:36)
[2017-02-09] MEDS: MEGESTROL ACETATE SUSP 400 MG/10 ML CUP PO SCH (09:00)
[2017-02-09] MEDS: guaiFENesin E.R. 600 MG TAB PO SCH ×2 (09:30→20:36)
[2017-02-09] MEDS: SODIUM CHLORIDE 0.9% FLUSH 10 ML FLUSH IV FLUSH SCH ×2 (09:30→20:36)
[2017-02-09] MEDS: METOPROLOL TARTRATE 100 MG TAB PO SCH ×2 (09:30→20:36)
[2017-02-09] MEDS: PANTOPRAZOLE SOD 40 MG DELAYED RELEASE TAB PO SCH (09:31)
[2017-02-09] MEDS: DILTIAZEM-CD 240 MG CAP ER PO SCH (09:31)
[2017-02-09] MEDS: AMIODARONE 200 MG TAB PO SCH (09:31)
[2017-02-09] MEDS ORDERED: hydrALAZINE HCL 20 MG/ML VIAL IV PRN (10:30)
[2017-02-09] MEDS ORDERED: NALOXONE HCL 0.4 MG/ML AMP IV PUSH PRN (10:30)
[2017-02-09] MEDS ORDERED: cloNIDine HCL 0.1 MG TAB PO PRN (10:30)
[2017-02-09] MEDS: ALBUTEROL SULFATE 90 MCG/ACT HFA 18 GM INHALER INH SCH ×4 (10:51→20:35)
[2017-02-09] MEDS: TIOTROPIUM BROMIDE 18 MCG INH INH SCH (10:51)
--- NOTE | 2017-02-09 17:07 | HHI.HP ---
[facility] Bia Tovar MD Admission Diagnosis CHF exacerbation Diagnoses: Chief Complaint: Shortness of breath Travel History International Travel<30 Days: No Contact w/Intl Traveler <30 Da: No Traveled to Known Affected Are: No History of Present Illness Jaye Paul is an 86-year-old female well-known to me from previous admission. She has history of systolic heart failure, A. fib status post pacemaker on Coumadin, hypertension, hypothyroidism and chronic kidney disease stage III. She was admitted early this month because of CHF exacerbation. She has been doing well until 2 days ago when she noted dyspnea on exertion and bilateral lower extremity swelling. She has been compliant with medical therapy, fluid and salt restriction. According to the patient, she was taken off diuretics by her PCP about a week ago because of worsening renal indices. She also reports of receiving shots because of elevated INR. In the emergency department, she was noted to be hypoxic 84% on room air. She received 40 mg IV Lasix and put out almost thousand cc urine. She feels better at this time. She agrees to Osorio catheter discontinued because of his of UTI. Case discussed with nursing staff. Denies fever, chills, cough, chest pain and urinary complaints. All other systems reviewed negative Review of Systems Except as stated in HPI: all other systems reviewed are Neg Past Family Social History Past Medical History As previously mentioned Past Surgical History As previously mentioned. Cataract surgery, lens implant Reported Medications Megestrol Liq (Megestrol Acetate) 40 Mg/Ml Susp 400 Mg PO DAILY Acidophilus/l-Sporogenes (Lactobacillus Acidophilus) 1 Tab Tab 1 Tab PO TID Hydrocodone-Acetaminophen 5-325 mg Tab 1 Tab PO Q4H PRN Do not take this medicine if you will drive a car or use a machine, only use it when resting at home. Cardizem CD 24 HR (Diltiazem CD 24 HR) 240 Mg Caper 240 Mg PO DAILY Amiodarone (Amiodarone HCl) 200 Mg Tab 200 Mg PO DAILY Combivent Respimat Inh (Ipratropium-Albuterol Inh) 20-[address]/Act Aero 1 Puff INH QID Reported Levothyroxine (Levothyroxine Sodium) 50 Mcg Tab 50 Mcg PO DAILY Metoprolol Tartrate 100 Mg Tab 100 Mg PO BID Warfarin 2 Mg Tab 2 Mg PO DAILY every day but friday Pantoprazole (Pantoprazole Sodium) 40 Mg Tab 40 Mg PO DAILY Allergies: Coded Allergies: No Known Allergies (Unverified , 02/09/17) Family History Denies CAD Social History She lives with a relative. She does not smoke or drink Physical Exam Vital Signs Vital Signs Date Time Temp Pulse Resp B/P Pulse Ox O2 Delivery O2 Flow Rate FiO2 02/09/17 15:01 64 02/09/17 15:01 99.5 72 18 97/46 94 02/09/17 14:00 64 02/09/17 13:00 64 02/09/17 12:01 62 02/09/17 11:01 98.8 62 20 121/49 96 02/09/17 11:00 62 02/09/17 10:00 60 02/09/17 09:00 66 02/09/17 08:45 97.7 76 18 146/73 94 02/09/17 07:52 74 18 149/65 97 Nasal Cannula 2 02/09/17 07:18 94 18 157/67 95 Nasal Cannula 4 02/09/17 06:14 50 161/77 93 Nasal Cannula 4 02/09/17 06:13 Nasal Cannula 4 02/09/17 06:13 Nasal Cannula 4 02/09/17 04:49 75 171/80 95 Nasal Cannula 4 02/09/17 04:42 97.9 66 20 187/77 90 Room Air Physical Exam GENERAL: This is a well-nourished, well-developed patient, in no apparent distress on nasal cannula. SKIN: No rashes, ecchymoses or lesions. Cool and dry. HEAD: Atraumatic. Normocephalic. No temporal or scalp tenderness. EYES: Pupils equal round and reactive. Extraocular motions intact. No scleral icterus. No injection or drainage. ENT: Nose without bleeding, purulent drainage or septal hematoma. Throat without erythema, tonsillar hypertrophy or exudate. Uvula midline. Airway patent. NECK: Trachea midline. She has JVD. No Lymphadenopathy. Supple, nontender, no meningeal signs. CARDIOVASCULAR: Regular rate and rhythm without murmurs, gallops, or rubs. RESPIRATORY: Clear to auscultation. Decreased Breath sounds equal bilaterally. No wheezes, rales, or rhonchi. GASTROINTESTINAL: Abdomen soft, non-tender, nondistended. No guarding. MUSCULOSKELETAL: Extremities without clubbing, cyanosis but with bilateral lower extremity pitting edema. No joint tenderness, effusion, or edema noted. No calf tenderness. Negative Homans sign bilaterally. NEUROLOGICAL: Awake and alert. Cranial nerves II through XII intact. Motor and sensory grossly within normal limits. Five out of 5 muscle strength in all muscle groups. Normal speech. Laboratory Laboratory Tests Test 02/09/17 02/09/17 05:27 05:33 White Blood Count 8.3 Red Blood Count 4.30 Hemoglobin 11.8 Hematocrit 36.3 Mean Corpuscular Volume 84.4 Mean Corpuscular Hemoglobin 27.5 Mean Corpuscular Hemoglobin 32.6 Concent Red Cell Distribution Width 15.3 Platelet Count 291 Mean Platelet Volume 8.8 Neutrophils (%) (Auto) 72.4 Lymphocytes (%) (Auto) 17.5 Monocytes (%) (Auto) 6.6 Eosinophils (%) (Auto) 2.8 Basophils (%) (Auto) 0.7 Neutrophils # (Auto) 6.0 Lymphocytes # (Auto) 1.5 Monocytes # (Auto) 0.5 Eosinophils # (Auto) 0.2 Basophils # (Auto) 0.1 CBC Comment DIFF FINAL Differential Comment Prothrombin Time 80.0 Prothromb Time International 6.7 Ratio Activated Partial 61.2 Thromboplast Time Sodium Level 137 Potassium Level 4.4 Chloride Level 105 Carbon Dioxide Level 23.6 Anion Gap 8 Blood Urea Nitrogen 22 Creatinine 1.10 Estimat Glomerular Filtration 47 Rate Random Glucose 98 Calcium Level 8.7 Troponin I LESS THAN 0.02 B-Type Natriuretic Peptide 2191 Lactic Acid Level 0.9 Date/Time Procedure Status Source Growth 02/09/17 05:32 Aerobic Blood Culture Received Blood Peripheral Pending 02/09/17 05:32 Anaerobic Blood Culture Received Blood Peripheral Pending Result Diagram: 02/09/1752602/09/17526 Imaging EKG tracing interpreted by me with paced rhythm Chest x-ray image shows bibasilar infiltrates and effusion Last Impressions Chest X-Ray 02/09/17513 Signed Impressions: Service Date/Time: Thursday, February 09, 2017 05:23 - CONCLUSION: Worsening basilar infiltrates and effusions. Edu Stuart MD Assessment and Plan Problem List: (1) CHF exacerbation ICD Code: I50.9 Status: Acute Assessment and Plan Jaye Paul is an 86-year-old female who presents to the emergency department complaining of shortness of breath and bilateral lower extremity swelling. She has history of systolic heart failure. Chest x-ray shows bibasilar oh infiltrates and effusion. BNP is over 2000. She has been taken off diuretics because of worsening kidney failure. She also has been hypoxic 84% on room air. Acute on chronic systolic heart failure exacerbation with hypoxia. Patient needs IV diuresis and we'll continue IV Lasix 20 mg every 12 hours and monitor renal function and electrolytes closely. CHF education, I/O and monitor weight. We'll continue beta chip. MIHAI inhibitor has not been started in the past secondary to kidney dysfunction. We'll consider starting if renal indices improved. Coagulopathy secondary to Coumadin. No bleeding. We'll hold Coumadin and monitor INR. A. fib status post pacemaker. CVR on beta chip, calcium channel chip and amiodarone. Continue to monitor on telemetry Hypertension. Stable continue above-mentioned antihypertensives with hold parameters. Hypothyroidism. Stable continue Synthroid Chronic kidney disease stage III. Nonoliguric. We'll monitor closely while on IV diuresis DVT prophylaxis with early ambulation. Patient still coagulopathic Code Status Full Discussed Condition With Patient, RN and case management Dann Nuñez MD Feb 09, 2017 17:07
[2017-02-09] MEDS: ACETAMINOPHEN/HYDROcodone 325 MG/5 MG TAB PO PRN (20:36)
[2017-02-10] VITALS (25 sets, daily range): BP systolic 104–135; BP diastolic 51–74; PULSE 59–118; RESP 16–20; TEMP 97.3–98.5; O2SAT 92–96
[2017-02-10 05:03] LABS: AUTOMATED NEUTROPHIL # 4.8 TH/MM3 (1.8-7.7); BASOPHIL # 0.1 TH/MM3 (0-0.2); BASOPHIL % 0.7 % (0.0-2.0); EOSINOPHIL # 0.3 TH/MM3 (0-0.4); EOSINOPHIL % 3.6 % (0.0-4.0); HEMATOCRIT 29.1 % (35.0-46.0); HEMO FLAGS DIFF FINAL; LYMPH % 20.4 % (9.0-44.0); LYMPHOCYTE # 1.5 TH/MM3 (1.0-4.8); MEAN CELL VOLUME 83.8 FL (80.0-100.0); MEAN CORPUSCULAR HEMOGLOBIN 27.8 PG (27.0-34.0); MEAN CORPUSCULAR HGB CONC 33.2 % (32.0-36.0); MONO % 7.5 % (0.0-8.0); NEUT % 67.8 % (16.0-70.0); PLATELET COUNT 226 TH/MM3 (150-450); RED BLOOD COUNT 3.48 MIL/MM3 (4.00-5.30); RED CELL DISTRIBUTION WIDTH 15.3 % (11.6-17.2); WHITE BLOOD COUNT 7.1 TH/MM3 (4.0-11.0)
[2017-02-10 05:24] LABS: PROTHROMBIN TIME - PATIENT 100.3 SEC (9.8-11.6)
[2017-02-10 05:28] LABS: ANION GAP 6 MEQ/L (5-15); AST (GOT) 13 U/L (15-37); BLOOD UREA NITROGEN 30 MG/DL (7-18); CHLORIDE 104 MEQ/L (98-107); GLOMERULAR FILTRATION RATE 35 ML/MIN (>89); POTASSIUM 4.1 MEQ/L (3.5-5.1); SODIUM (NA) 136 MEQ/L (136-145)
[2017-02-10 05:31] LABS: INTERNATIONAL NORMALIZED RATIO 8.3 RATIO
[2017-02-10 05:31] LABS: ALKALINE PHOSPHATASE 44 U/L (45-117); ALT (GPT) 15 U/L (10-53); TOTAL BILIRUBIN ADULT 0.5 MG/DL (0.2-1.0)
[2017-02-10] MEDS: LEVOTHYROXINE SODIUM 50 MCG TAB PO SCH (06:05)
[2017-02-10] MEDS: PANTOPRAZOLE SOD 40 MG DELAYED RELEASE TAB PO SCH (08:39)
[2017-02-10] MEDS: DOCUSATE SODIUM 50 MG/SENNA 8.6 MG TAB PO SCH ×2 (08:40→20:39)
[2017-02-10] MEDS: AMIODARONE 200 MG TAB PO SCH (08:40)
[2017-02-10] MEDS: guaiFENesin E.R. 600 MG TAB PO SCH ×2 (08:40→20:39)
[2017-02-10] MEDS: METOPROLOL TARTRATE 100 MG TAB PO SCH ×2 (08:40→20:39)
[2017-02-10] MEDS: DILTIAZEM-CD 240 MG CAP ER PO SCH (08:40)
[2017-02-10] MEDS: SODIUM CHLORIDE 0.9% FLUSH 10 ML FLUSH IV FLUSH SCH ×2 (08:41→20:39)
--- NOTE | 2017-02-10 08:54 | HHI.PR ---
Subjective Remarks Follow-up heart failure. She is improving with less dyspnea on exertion ambulated in the hallway. Denies dizziness, chest pain, palpitations and diaphoresis. Discussed with RN Objective Vitals Vital Signs Date Time Temp Pulse Resp B/P Pulse Ox O2 Delivery O2 Flow Rate FiO2 02/10/17 08:00 63 02/10/17 07:22 93 Nasal Cannula 2.00 02/10/17 07:00 68 02/10/17 07:00 98.3 118 18 116/53 93 02/10/17 06:04 64 02/10/17 05:00 68 02/10/17 04:55 92 Nasal Cannula 2.00 02/10/17 04:53 4.00 02/10/17 04:00 77 02/10/17 03:00 98.4 70 20 104/51 95 02/10/17 03:00 62 02/10/17 02:00 62 02/10/17 01:00 68 02/10/17 00:00 64 02/09/17 23:00 64 02/09/17 23:00 98.1 67 20 101/48 95 02/09/17 22:00 64 02/09/17 21:00 66 02/09/17 20:00 70 02/09/17 19:00 78 02/09/17 19:00 98.3 78 20 126/64 97 02/09/17 18:01 62 02/09/17 17:01 66 02/09/17 16:00 62 02/09/17 15:01 64 02/09/17 15:01 99.5 72 18 97/46 94 02/09/17 14:00 64 02/09/17 13:00 64 02/09/17 12:01 62 02/09/17 11:01 98.8 62 20 121/49 96 02/09/17 11:00 62 02/09/17 10:00 60 02/09/17 09:00 66 I/O 02/09/17 02/09/17 02/09/17 02/10/17 02/10/17 02/10/17 07:00 15:00 23:00 07:00 15:00 23:00 Intake Total 480 ml 240 ml Output Total 300 ml 550 ml 200 ml Balance -300 ml -70 ml 40 ml Intake Oral 480 ml 240 ml Output Urine Total 300 ml 550 ml 200 ml # Voids 0 # Bowel Movements 0 Result Diagram: 02/10/17 0417 02/10/17 0414 Imaging Last Impressions Chest X-Ray 02/09/17 0514 Signed Impressions: Service Date/Time: Thursday, February 09, 2017 05:23 - CONCLUSION: Worsening basilar infiltrates and effusions. Edu Stuart MD Objective Remarks GENERAL: This is a well-nourished, well-developed patient, in no apparent distress on nasal cannula. SKIN: No rashes, ecchymoses or lesions. Cool and dry. EYES: Pupils equal round and reactive. Extraocular motions intact. No scleral icterus. ENT: Nose without bleeding, purulent drainage or septal hematoma. Throat without erythema, tonsillar hypertrophy or exudate. Uvula midline. Airway patent. NECK: Trachea midline. She has JVD. No Lymphadenopathy. Supple CARDIOVASCULAR: Regular rate and rhythm without gallops, or rubs. RESPIRATORY: Decreased Breath sounds equal bilaterally. Crackles right base MUSCULOSKELETAL: Extremities without clubbing, cyanosis but with improving bilateral lower extremity pitting edema. No joint tenderness, effusion, or edema noted. No calf tenderness. Negative Homans sign bilaterally. Procedures none A/P Problem List: (1) CHF exacerbation ICD Code: I50.9 Status: Acute Assessment and Plan Jaye Paul is an 86-year-old female who presents to the emergency department complaining of shortness of breath and bilateral lower extremity swelling. She has history of systolic heart failure. Chest x-ray shows bibasilar oh infiltrates and effusion. BNP is over 2000. She has been taken off diuretics because of worsening kidney failure. She also has been hypoxic 84% on room air. Acute on chronic systolic heart failure exacerbation with hypoxia. Improving but will still need IV diuresis continue IV Lasix 20 mg every 12 hours and monitor renal function and electrolytes closely. CHF education, I/O and monitor weight. We'll continue beta chip. MIHAI inhibitor has not been started in the past secondary to kidney dysfunction. We'll consider starting if renal indices improved. Coagulopathy secondary to Coumadin. No bleeding but worse. Vitamin K 5 mg by mouth 1. We'll hold Coumadin and monitor INR. A. fib status post pacemaker. CVR on beta chip, calcium channel chip and amiodarone. Continue to monitor on telemetry Hypertension. Stable continue above-mentioned antihypertensives with hold parameters. Hypothyroidism. Stable continue Synthroid Chronic kidney disease stage III. Nonoliguric. Worse secondary to diuresis. We'll monitor closely while on IV diuresis. Avoid nephrotoxins DVT prophylaxis with early ambulation. Patient still coagulopathic Discharge Planning Patient not ready for discharge Dann Nuñez MD Feb 10, 2017 08:54 Monocytes (%) (Auto) 6.6 Eosinophils (%) (Auto) 2.8 Basophils (%) (Auto) 0.7 Neutrophils # (Auto) 6.0 Lymphocytes # (Auto) 1.5 Monocytes # (Auto) 0.5 Eosinophils # (Auto) 0.2 Basophils # (Auto) 0.1 CBC Comment DIFF FINAL Differential Comment Prothrombin Time 80.0 Prothromb Time International 6.7 Ratio Activated Partial 61.2 Thromboplast Time Sodium Level 137 Potassium Level 4.4 Chloride Level 105 Carbon Dioxide Level 23.6 Anion Gap 8 Blood Urea Nitrogen 22 Creatinine 1.10 Estimat Glomerular Filtration 47 Rate Random Glucose 98 Calcium Level 8.7 Troponin I LESS THAN 0.02 B-Type Natriuretic Peptide 2191 Lactic Acid Level 0.9 Date/Time Procedure Status Source Growth 02/09/17 05:32 Aerobic Blood Culture Received Blood Peripheral Pending 02/09/17 05:32 Anaerobic Blood Culture Received Blood Peripheral Pending Result Diagram: 02/09/1752602/09/17526 Imaging EKG tracing interpreted by me with paced rhythm Chest x-ray image shows bibasilar infiltrates and effusion Last Impressions Chest X-Ray 02/09/1714 Signed Impressions: Service Date/Time: Thursday, February 09, 2017 05:23 - CONCLUSION: Worsening basilar infiltrates and effusions. Edu Stuart MD Septic Shock Reassessment Septic Shock Reassessment Assessment and Plan Assessment and Plan Problem List: (1) CHF exacerbation ICD Code: I50.9 Status: Acute Assessment and Plan Procedures none A/P Problem List: (1) CHF exacerbation ICD Code: I50.9 Status: Acute Assessment and Plan Jaye Paul is an 86-year-old female who presents to the emergency department complaining of shortness of breath and bilateral lower extremity swelling. She has history of systolic heart failure. Chest x-ray shows bibasilar oh infiltrates and effusion. BNP is over 2000. She has been taken off diuretics because of worsening kidney failure. She also has been hypoxic 84% on room air. Acute on chronic systolic heart failure exacerbation with hypoxia. Patient needs IV diuresis and we'll continue IV Lasix 20 mg every 12 hours and monitor renal function and electrolytes closely. CHF education, I/O and monitor weight. We'll continue beta chip. MIHAI inhibitor has not been started in the past secondary to kidney dysfunction. We'll consider starting if renal indices improved. Coagulopathy secondary to Coumadin. No bleeding. We'll hold Coumadin and monitor INR. A. fib status post pacemaker. CVR on beta chip, calcium channel chip and amiodarone. Continue to monitor on telemetry Hypertension. Stable continue above-mentioned antihypertensives with hold parameters. Hypothyroidism. Stable continue Synthroid Chronic kidney disease stage III. Nonoliguric. We'll monitor closely while on IV diuresis DVT prophylaxis with early ambulation. Patient still coagulopathic Dann Nuñez MD Feb 10, 2017 08:54
[2017-02-10] MEDS: ALBUTEROL SULFATE 90 MCG/ACT HFA 18 GM INHALER INH SCH ×4 (09:00→20:40)
[2017-02-10] MEDS ORDERED: PHYTONADIONE 5 MG TAB PO ONE (09:00)
[2017-02-10] MEDS: TIOTROPIUM BROMIDE 18 MCG INH INH SCH (09:00)
[2017-02-10] MEDS: MEGESTROL ACETATE SUSP 400 MG/10 ML CUP PO SCH (09:33)
[2017-02-10] MEDS ORDERED: PNEUMOCOCCAL POLYVALENT INJ 25 MCG/0.5 ML SYR IM ONE (10:00)
--- NOTE | 2017-02-10 14:11 | EKG ---
Date Performed: 02/09/2017 Time Performed: 04:50:54 PTAGE: 86 years EKG: ELECTRONIC ATRIAL PACEMAKER ELECTRONIC VENTRICULAR PACEMAKER ABNORMAL RHYTHM ECG PREVIOUS TRACING : 02/09/2017 03.45 Prolonged QTc interval DOCTOR: Abad Ferrara Interpretating Date/Time 02/10/2017 14:10:47
[2017-02-10] MEDS: ACETAMINOPHEN/HYDROcodone 325 MG/5 MG TAB PO PRN (20:39)
[2017-02-11] VITALS (23 sets, daily range): BP systolic 117–147; BP diastolic 49–67; PULSE 51–81; RESP 16–20; TEMP 98–98.7; O2SAT 94–99
[2017-02-11] MEDS: LEVOTHYROXINE SODIUM 50 MCG TAB PO SCH (06:30)
[2017-02-11 07:00] LABS: AUTOMATED NEUTROPHIL # 3.7 TH/MM3 (1.8-7.7); BASOPHIL % 0.5 % (0.0-2.0); EOSINOPHIL # 0.3 TH/MM3 (0-0.4); EOSINOPHIL % 4.9 % (0.0-4.0); HEMATOCRIT 25.9 % (35.0-46.0); HEMO FLAGS DIFF FINAL; LYMPH % 20.5 % (9.0-44.0); LYMPHOCYTE # 1.2 TH/MM3 (1.0-4.8); MEAN CELL VOLUME 83.8 FL (80.0-100.0); MEAN CORPUSCULAR HEMOGLOBIN 28.7 PG (27.0-34.0); MEAN CORPUSCULAR HGB CONC 34.2 % (32.0-36.0); MONO % 10.5 % (0.0-8.0); NEUT % 63.6 % (16.0-70.0); PLATELET COUNT 197 TH/MM3 (150-450); RED BLOOD COUNT 3.09 MIL/MM3 (4.00-5.30); RED CELL DISTRIBUTION WIDTH 14.9 % (11.6-17.2); WHITE BLOOD COUNT 5.8 TH/MM3 (4.0-11.0)
[2017-02-11 07:06] LABS: INTERNATIONAL NORMALIZED RATIO 1.8 RATIO; PROTHROMBIN TIME - PATIENT 20.8 SEC (9.8-11.6)
[2017-02-11 07:20] LABS: BICARBONATE 26.1 MEQ/L (21.0-32.0); MAGNESIUM 1.8 MG/DL (1.5-2.5)
[2017-02-11] MEDS: DOCUSATE SODIUM 50 MG/SENNA 8.6 MG TAB PO SCH ×2 (08:53→20:24)
[2017-02-11] MEDS: guaiFENesin E.R. 600 MG TAB PO SCH ×2 (08:53→20:24)
[2017-02-11] MEDS: AMIODARONE 200 MG TAB PO SCH (08:53)
[2017-02-11] MEDS: DILTIAZEM-CD 240 MG CAP ER PO SCH (08:53)
[2017-02-11] MEDS: PANTOPRAZOLE SOD 40 MG DELAYED RELEASE TAB PO SCH (08:53)
[2017-02-11] MEDS: MEGESTROL ACETATE SUSP 400 MG/10 ML CUP PO SCH (08:53)
[2017-02-11] MEDS: METOPROLOL TARTRATE 100 MG TAB PO SCH ×2 (08:53→20:24)
[2017-02-11] MEDS: ALBUTEROL SULFATE 90 MCG/ACT HFA 18 GM INHALER INH SCH ×4 (08:55→20:25)
[2017-02-11] MEDS: TIOTROPIUM BROMIDE 18 MCG INH INH SCH (08:55)
[2017-02-11] MEDS: SODIUM CHLORIDE 0.9% FLUSH 10 ML FLUSH IV FLUSH SCH ×2 (08:57→20:24)
--- NOTE | 2017-02-11 09:35 | HHI.PR ---
Subjective Remarks DRAFT Follow-up heart failure. States shortness of breath improving but still feels weak. She has systolic HF Class II I recommended entresto. Wants me to touch base with Dr Jansne her shoe stitcher prior to starting. Discussed with RN Objective Vitals Vital Signs Date Time Temp Pulse Resp B/P Pulse Ox O2 Delivery O2 Flow Rate FiO2 02/11/17 07:45 69 02/11/17 06:00 71 02/11/17 05:00 80 02/11/17 04:00 64 02/11/17 03:10 99 Nasal Cannula 2.00 02/11/17 03:10 98.0 69 16 117/49 99 02/11/17 03:00 51 02/11/17 02:00 81 02/11/17 01:00 67 02/11/17 00:00 68 02/10/17 23:00 67 02/10/17 23:00 95 Nasal Cannula 2.00 02/10/17 23:00 98.0 70 16 120/62 95 02/10/17 22:00 80 02/10/17 21:00 62 02/10/17 20:30 98.5 65 16 135/62 96 02/10/17 20:30 96 Nasal Cannula 2.00 02/10/17 20:00 66 02/10/17 19:00 66 02/10/17 18:06 72 02/10/17 17:16 72 02/10/17 16:00 69 02/10/17 15:00 70 02/10/17 15:00 97.3 70 18 112/74 96 02/10/17 13:00 59 02/10/17 12:00 69 02/10/17 11:00 65 02/10/17 11:00 97.9 65 18 108/51 94 02/10/17 10:00 66 I/O 02/10/17 02/10/17 02/10/17 02/11/17 02/11/17 02/11/17 07:00 15:00 23:00 07:00 15:00 23:00 Intake Total 240 ml 520 ml 240 ml Output Total 200 ml 400 ml Balance 40 ml 520 ml -160 ml Intake Oral 240 ml 520 ml 240 ml IV Total 0 ml Output Urine Total 200 ml 400 ml # Voids 3 # Bowel Movements 0 Result Diagram: 02/11/1730 02/11/17529 Objective Remarks GENERAL: This is a well-nourished, well-developed patient, in no apparent distress on nasal cannula. SKIN: No rashes, ecchymoses or lesions. Cool and dry. EYES: Pupils equal round and reactive. Extraocular motions intact. No scleral icterus. ENT: Nose without bleeding, purulent drainage or septal hematoma. Throat without erythema, tonsillar hypertrophy or exudate. Uvula midline. Airway patent. NECK: Trachea midline. She has JVD. No Lymphadenopathy. Supple CARDIOVASCULAR: Regular rate and rhythm without gallops, or rubs. RESPIRATORY: Decreased Breath sounds equal bilaterally. Clear MUSCULOSKELETAL: Extremities without clubbing, cyanosis but with improving bilateral lower extremity pitting edema. No joint tenderness, effusion, or edema noted. No calf tenderness. Negative Homans sign bilaterally. Procedures none A/P Problem List: (1) CHF exacerbation ICD Code: I50.9 Status: Acute Assessment and Plan Jaye Paul is an 86-year-old female who presents to the emergency department complaining of shortness of breath and bilateral lower extremity swelling. She has history of systolic heart failure. Chest x-ray shows bibasilar oh infiltrates and effusion. BNP is over 2000. She has been taken off diuretics because of worsening kidney failure. She also has been hypoxic 84% on room air. Acute on chronic systolic EF 30% Class II heart failure exacerbation with hypoxia. Improving but will still need IV diuresis continue IV Lasix 20 mg every 12 hours and monitor renal function and electrolytes closely. She will be a good candidate for Entresto but wants me to discuss with her shoe stitcher first. CHF education, I/O and monitor weight. We'll continue beta chip. MIHAI inhibitor has not been started in the past secondary to kidney dysfunction. Coagulopathy secondary to Coumadin. Improved status post Vitamin K 5 mg by mouth 1. A. fib status post pacemaker. CVR on beta chip, calcium channel chip and amiodarone. Continue to monitor on telemetry . Restart Coumadin Hypertension. Stable continue above-mentioned antihypertensives with hold parameters. Hypothyroidism. Stable continue Synthroid Chronic kidney disease stage III. Nonoliguric. Improving. We'll monitor closely while on IV diuresis. Avoid nephrotoxins DVT prophylaxis with early ambulation. Coumadin Discharge Planning Possible discharge in the morning Dann Nuñez MD Feb 11, 2017 09:35
[2017-02-11 12:43] LABS: TRANSFERRIN IRON PROFILE 111 MG/DL (200-360)
[2017-02-11 12:46] LABS: FERRITIN 23 NG/ML (8-252)
--- NOTE | 2017-02-11 13:07 | HHI.DCPOC ---
Discharge Care Plan Diagnosis: (1) CHF exacerbation Your Health Problems Are: Difficulty with ADL Exercise Tolerance Goals to Promote Your Health * To prevent worsening of your condition and complications * To maintain your health at the optimal level Directions to Meet Your Goals Take your medications as prescribed Follow your dietary instruction Follow activity as directed Keep your appointments as scheduled Take your immunizations and boosters as scheduled If your symptoms worsen call your PCP, if no PCP go to Urgent Care Center or Emergency Room Smoking is Dangerous to Your Health. Avoid second hand smoke Call the 24-hour hour crisis hotline for domestic abuse at Dann Nuñez MD Feb 11, 2017 13:07
[2017-02-11] MEDS ORDERED: WARFARIN SOD 2 MG TAB PO SCH (16:00)
[2017-02-12] VITALS (17 sets, daily range): BP systolic 134–152; BP diastolic 67–79; PULSE 56–85; RESP 16–21; TEMP 97.4–98.6; O2SAT 92–98
[2017-02-12] MEDS: LEVOTHYROXINE SODIUM 50 MCG TAB PO SCH (05:13)
[2017-02-12 05:35] LABS: AUTOMATED NEUTROPHIL # 5.3 TH/MM3 (1.8-7.7); BASOPHIL % 0.4 % (0.0-2.0); EOSINOPHIL # 0.2 TH/MM3 (0-0.4); EOSINOPHIL % 3.1 % (0.0-4.0); HEMO FLAGS DIFF FINAL; LYMPH % 21.7 % (9.0-44.0); LYMPHOCYTE # 1.7 TH/MM3 (1.0-4.8); MEAN CELL VOLUME 83.6 FL (80.0-100.0); MEAN CORPUSCULAR HEMOGLOBIN 27.5 PG (27.0-34.0); MEAN CORPUSCULAR HGB CONC 32.9 % (32.0-36.0); MONO % 7.7 % (0.0-8.0); NEUT % 67.1 % (16.0-70.0); PLATELET COUNT 236 TH/MM3 (150-450); RED BLOOD COUNT 3.47 MIL/MM3 (4.00-5.30); RED CELL DISTRIBUTION WIDTH 14.9 % (11.6-17.2); WHITE BLOOD COUNT 7.9 TH/MM3 (4.0-11.0)
[2017-02-12 05:50] LABS: INTERNATIONAL NORMALIZED RATIO 1.5 RATIO; PROTHROMBIN TIME - PATIENT 17.4 SEC (9.8-11.6)
[2017-02-12 06:02] LABS: BICARBONATE 24.1 MEQ/L (21.0-32.0); MAGNESIUM 1.8 MG/DL (1.5-2.5)
[2017-02-12] MEDS: guaiFENesin E.R. 600 MG TAB PO SCH (08:39)
[2017-02-12] MEDS: MEGESTROL ACETATE SUSP 400 MG/10 ML CUP PO SCH (08:39)
[2017-02-12] MEDS: ALBUTEROL SULFATE 90 MCG/ACT HFA 18 GM INHALER INH SCH ×2 (08:40→12:44)
[2017-02-12] MEDS: SODIUM CHLORIDE 0.9% FLUSH 10 ML FLUSH IV FLUSH SCH (08:40)
[2017-02-12] MEDS: METOPROLOL TARTRATE 100 MG TAB PO SCH (08:40)
[2017-02-12] MEDS: DILTIAZEM-CD 240 MG CAP ER PO SCH (08:40)
[2017-02-12] MEDS: AMIODARONE 200 MG TAB PO SCH (08:40)
[2017-02-12] MEDS: DOCUSATE SODIUM 50 MG/SENNA 8.6 MG TAB PO SCH (08:40)
[2017-02-12] MEDS: PANTOPRAZOLE SOD 40 MG DELAYED RELEASE TAB PO SCH (08:40)
[2017-02-12] MEDS: TIOTROPIUM BROMIDE 18 MCG INH INH SCH (08:41)
--- NOTE | 2017-02-12 10:09 | HHI.FF ---
Face to Face Verification Diagnosis: (1) CHF exacerbation Home Health Nursing Order: CHF education Oxygen administration education I have seen patient Jaye Paul on 02/12/17. My clinical findings support the need for the requested home health care services because: Patient has SOB I certify that my clinical findings support that this patient is homebound because: Poor cardiac reserve Dann Nuñez MD Feb 12, 2017 10:09
[2017-02-12] MEDS ORDERED: OXYGENDME NAS.CANULA (10:10)
[2017-02-12] MEDS ORDERED: FURO1TAB62 PO (10:35)
--- NOTE | 2017-02-12 10:40 | HHI.PR ---
Subjective Remarks Follow-up heart failure. She does not feel any better and feels weak. Only walked few steps today last time when she was dc was ambulating in the hallway. Discussed with RN and case management Objective Vitals Vital Signs Date Time Temp Pulse Resp B/P Pulse Ox O2 Delivery O2 Flow Rate FiO2 02/12/17 10:11 79 02/12/17 09:16 72 02/12/17 08:26 68 02/12/17 07:20 66 02/12/17 07:20 92 Nasal Cannula 2.00 02/12/17 07:20 98.1 66 16 149/71 92 02/12/17 06:06 76 02/12/17 05:42 85 02/12/17 05:13 98.6 82 21 152/74 94 02/12/17 04:03 60 02/12/17 03:11 60 02/12/17 03:11 Nasal Cannula 2.00 02/12/17 02:08 56 02/12/17 01:05 65 02/12/17 00:15 94 2.00 02/12/17 00:07 65 02/11/17 23:19 63 02/11/17 22:00 64 02/11/17 20:30 96 2.00 02/11/17 20:26 98.4 63 20 120/51 96 02/11/17 18:13 64 02/11/17 17:21 69 02/11/17 17:15 94 Nasal Cannula 2.00 02/11/17 16:32 65 02/11/17 15:56 66 02/11/17 15:56 94 Nasal Cannula 2.00 02/11/17 15:56 98.7 66 18 131/59 94 02/11/17 13:10 65 02/11/17 12:08 75 02/11/17 11:15 97 Nasal Cannula 2.00 02/11/17 11:15 98.0 68 18 138/67 99 02/11/17 11:15 67 I/O 02/11/17 02/11/17 02/11/17 02/12/17 02/12/17 02/12/17 07:00 15:00 23:00 07:00 15:00 23:00 Intake Total 240 ml 720 ml 240 ml Output Total 400 ml 600 ml 750 ml Balance -160 ml 120 ml -510 ml Intake Oral 240 ml 720 ml 240 ml IV Total 0 ml Output Urine Total 400 ml 600 ml 750 ml # Voids 1 # Bowel Movements 0 1 Result Diagram: 02/12/176 02/12/17405 Objective Remarks This is a well-nourished, well-developed patient, in no apparent distress on nasal cannula Regular rate and rhythm without gallops, or rubs. Decreased Breath sounds equal bilaterally. Clear Extremities without clubbing, cyanosis but with improving bilateral lower extremity pitting edema. No joint tenderness, effusion, or edema noted. No calf tenderness. Negative Homans sign bilaterally. Procedures none A/P Problem List: (1) CHF exacerbation ICD Code: I50.9 Status: Acute Assessment and Plan Jaye Paul is an 86-year-old female who presents to the emergency department complaining of shortness of breath and bilateral lower extremity swelling. She has history of systolic heart failure. Chest x-ray shows bibasilar oh infiltrates and effusion. BNP is over 2000. She has been taken off diuretics because of worsening kidney failure. She also has been hypoxic 84% on room air. Acute on chronic systolic EF 30% Class II heart failure exacerbation with hypoxia. Still symptomatic on IV Lasix 20 mg every 12 hours and monitor renal function and electrolytes closely. She will be a good candidate for Entresto but wants me to discuss with her options trader first awaiting return call. CHF education, I/O and monitor weight. We'll continue beta chip. MIHAI inhibitor has not been started in the past secondary to kidney dysfunction. Coagulopathy secondary to Coumadin. Improved status post Vitamin K 5 mg by mouth 1. A. fib status post pacemaker. CVR on beta chip, calcium channel chip and amiodarone. Continue to monitor on telemetry . Restarted Coumadin consider Lovenox for bridging Hypertension. Stable continue above-mentioned antihypertensives with hold parameters. Hypothyroidism. Stable continue Synthroid Chronic kidney disease stage III. Nonoliguric. Improving. We'll monitor closely while on IV diuresis. Avoid nephrotoxins DVT prophylaxis with early ambulation. Coumadin Discharge Planning Possible discharge in the morning Dann Nuñez MD Feb 12, 2017 10:39
[2017-02-12] MEDS ORDERED: FUROSEMIDE 20 MG/2 ML VIAL IV PUSH SCH (11:00)
[2017-02-12] MEDS: ACETAMINOPHEN/HYDROcodone 325 MG/5 MG TAB PO PRN (11:57)
--- NOTE | 2017-02-12 12:16 | HHI.DS ---
Discharge Summary Admission Date Feb 09, 2017 at 06:47 Discharge Date: Feb 12, 2017 Admitting Diagnosis CHF exacerbation (1) CHF exacerbation ICD Code: I50.9 Diagnosis: Principal Procedures none Brief History - From Admission Jaye Paul is an 86-year-old female well-known to me from previous admission. She has history of systolic heart failure, A. fib status post pacemaker on Coumadin, hypertension, hypothyroidism and chronic kidney disease stage III. She was admitted early this month because of CHF exacerbation. She has been doing well until 2 days ago when she noted dyspnea on exertion and bilateral lower extremity swelling. She has been compliant with medical therapy, fluid and salt restriction. According to the patient, she was taken off diuretics by her PCP about a week ago because of worsening renal indices. She also reports of receiving shots because of elevated INR. In the emergency department, she was noted to be hypoxic 84% on room air. She received 40 mg IV Lasix and put out almost thousand cc urine. She feels better at this time. She agrees to Osorio catheter discontinued because of his of UTI. Case discussed with nursing staff. Denies fever, chills, cough, chest pain and urinary complaints. All other systems reviewed negative CBC/BMP: 02/12/17 0406 02/12/17 0406 Significant Findings Laboratory Tests Test 02/10/17 02/10/17 02/11/17 02/12/17 04:14 04:17 05:30 04:06 Blood Urea Nitrogen 30 MG/DL (7-18) 27 MG/DL (7-18) 20 MG/DL (7-18) Creatinine 1.41 MG/DL 1.20 MG/DL (0.50-1.00) (0.50-1.00) Estimat Glomerular Filtration 35 ML/MIN (>89) 42 ML/MIN (>89) 53 ML/MIN (>89) Rate Calcium Level 8.3 MG/DL 8.1 MG/DL (8.5-10.1) (8.5-10.1) Aspartate Amino Transf 13 U/L (15-37) (AST/SGOT) Alkaline Phosphatase 44 U/L (45-117) Albumin 2.6 GM/DL (3.4-5.0) Red Blood Count 3.48 MIL/MM3 3.09 MIL/MM3 3.47 MIL/MM3 (4.00-5.30) (4.00-5.30) (4.00-5.30) Hemoglobin 9.7 GM/DL 8.9 GM/DL 9.6 GM/DL (11.6-15.3) (11.6-15.3) (11.6-15.3) Hematocrit 29.1 % 25.9 % 29.0 % (35.0-46.0) (35.0-46.0) (35.0-46.0) Prothrombin Time 100.3 SEC 20.8 SEC 17.4 SEC (9.8-11.6) (9.8-11.6) (9.8-11.6) Prothromb Time International 8.3 RATIO Ratio Monocytes (%) (Auto) 10.5 % (0.0-8.0) Eosinophils (%) (Auto) 4.9 % (0.0-4.0) Iron Level 26 MCG/DL (50-170) Total Iron Binding Capacity 155 MCG/DL (250-450) Percent Iron Saturation 16.7 % (20-50) Imaging Last Impressions Chest X-Ray 02/09/17 0514 Signed Impressions: Service Date/Time: Thursday, February 09, 2017 05:23 - CONCLUSION: Worsening basilar infiltrates and effusions. Edu Stuart MD PE at Discharge This is a well-nourished, well-developed patient, in no apparent distress on nasal cannula Regular rate and rhythm without gallops, or rubs. Decreased Breath sounds equal bilaterally. Clear Extremities without clubbing, cyanosis but with improving bilateral lower extremity pitting edema. No joint tenderness, effusion, or edema noted. No calf tenderness. Negative Homans sign bilaterally. Hospital Course Jaye Paul is an 86-year-old female who presents to the emergency department complaining of shortness of breath and bilateral lower extremity swelling. She has history of systolic heart failure. Chest x-ray shows bibasilar oh infiltrates and effusion. BNP is over 2000. She has been taken off diuretics because of worsening kidney failure. She also has been hypoxic 84% on room air. Acute on chronic systolic EF 30% Class II heart failure exacerbation with hypoxia. Improving with diuresis monitor renal function and electrolytes closely. She will be a good candidate for Entresto but wants me to discuss with her zoning engineer first awaiting return call. CHF education, I/O and monitor weight. We'll continue beta chip. MIHAI inhibitor has not been started in the past secondary to kidney dysfunction. Coagulopathy secondary to Coumadin. Improved status post Vitamin K 5 mg by mouth 1. A. fib status post pacemaker. CVR on beta chip, calcium channel chip and amiodarone. Continue to monitor on telemetry . Restarted Coumadin consider Lovenox for bridging Hypertension. Stable continue above-mentioned antihypertensives with hold parameters. Hypothyroidism. Stable continue Synthroid Chronic kidney disease stage III. Nonoliguric. Improving. We'll monitor closely while on IV diuresis. Avoid nephrotoxins DVT prophylaxis with early ambulation. Coumadin Pt Condition on Discharge: Stable Discharge Disposition: Discharge to SNF Discharge Time: > 30 minutes Discharge Instructions DIET: Follow Instructions for: Heart Healthy Diet Activities you can perform: Regular-No Restrictions Activities to Avoid: Driving Follow up Referrals: Cardiology - 1 Week PCP Follow-up - 3-5 Days New Orders: BASIC METABOLIC PROF - 02/17/17 PT/INR New Medications: Furosemide (Lasix) 20 Mg Tab 20 MG PO DAILY Prevent Heart Failure #60 Ref 0 TAB Oxygen (O2) (Oxygen (O2)) Device 2 LITER YRIS.CANULA CONTINUOUS Oxygen Concentrator Portable Gaseous 2 L/min via Nasal Canula Continuous For 99 months Prevent Hypoxemia #2 CYLINDER Continued Medications: Amiodarone (Amiodarone) 200 Mg Tab 200 MG PO DAILY Atrial Fibrillation #30 Ref 0 TAB Diltiazem CD 24 HR (Cardizem CD 24 HR) 240 Mg Caper 240 MG PO DAILY Atrial Fibrillation #30 Ref 0 CAP Hydrocodone-Acetaminophen (Hydrocodone-Acetaminophen) 5-325 mg Tab 1 TAB PO Q4H Do not take this medicine if you will drive a car or use a machine , only use it when resting at home. PRN Pain #12 Ref 0 TAB Ipratropium-Albuterol Inh (Combivent Respimat Inh) 20-100 Custodial/Act Aero 1 PUFF INH QID Asthma Management #1 Ref 0 INHALER Lactobacillus Acidophilus (Acidophilus/l-Sporogenes) 1 Tab Tab 1 TAB PO TID was on antibiotics. #30 Ref 0 TAB Levothyroxine (Levothyroxine) 50 Mcg Tab 50 MCG PO DAILY Thyroid #30 Ref 0 TAB Megestrol Liq (Megestrol Liq) 40 Mg/Ml Susp 400 MG PO DAILY appetite #240 Ref 0 ML Metoprolol Tartrate (Metoprolol Tartrate) 100 Mg Tab 100 MG PO BID #60 Ref 0 TAB Pantoprazole (Pantoprazole) 40 Mg Tab 40 MG PO DAILY Reflux #30 Ref 0 TAB Warfarin (Warfarin) 2 Mg Tab 2 MG PO DAILY every day but friday Blood Clot Prevention #30 Ref 0 TAB ([guaiFENesin ER]) 600 MG TABCR 600 MG PO BID COPD #60 Ref 0 TAB.SR Discontinued Medications: Enoxaparin Inj (Lovenox Inj) 60 Mg/0.6 Ml Syr 60 MG SQ BID USE ONE VIAL EVERY 12 HOURS SUBCUTANEOUSLY, AND FOLLOW INR ON DAILY BASIS, DISCONTINUE LOVENOX USE ONCE INR IN 2 OR OVER AND CONTINUE BY MOUTH WARFARIN, NEEDS HOME HEALTH CARE TO CONTINUE DAILY PT AND INR Blood Clot Prevention #10 Ref 0 SYRINGE Additional Information I spent 35 minutes [id number] with the patient or on the catalan discussing the patient's disposition, prognosis, and plan of care with patient's caregivers. Over half the time spent was devoted to counseling the patient regarding placement in coordinating care with caregivers and case management. Dann Nuñez MD Feb 12, 2017 12:16
[2017-02-12] MEDS ORDERED: WARFARIN SOD 1 MG TAB PO ONE (16:00)
== END 2017-02-12 16:20 | DRG 291 ==
LOC: NEPE 04:39 → NEDA 06:47 → HCIS 08:05
PROVIDERS: ADMIT Internal Medicine; ATTEND Internal Medicine
DX: I13.0 Hypertensive heart and chronic kidney disease with heart failure and stage 1 through stage 4 chronic kidney disease, or unspecified chronic kidney disease (principal); I50.23 Acute on chronic systolic (congestive) heart failure; I48.91 Unspecified atrial fibrillation; N18.3 Chronic kidney disease, stage 3 (moderate); E03.9 Hypothyroidism, unspecified; R79.1 Abnormal coagulation profile; H91.90 Unspecified hearing loss, unspecified ear; K21.9 Gastro-esophageal reflux disease without esophagitis; R09.02 Hypoxemia; T45.515A Adverse effect of anticoagulants, initial encounter; M19.90 Unspecified osteoarthritis, unspecified site; Z79.01 Long term (current) use of anticoagulants; Z95.0 Presence of cardiac pacemaker
CPT/HCPCS: 71010; 80048; 80053; 82272; 82728; 83540; 83550; 83605; 83735; 83880; 84484; 85025; 85610; 85730; 87040; 93005; 94620; 96374; J1940; J2405

== ENCOUNTER 2017-03-04 15:51 | Inpatient (IN) | payer OTHER, MEDICARE ==
[~2017-03-04] VITALS: Ht 160 cm; Wt 54.0 kg
[2017-03-04] VITALS (13 sets, daily range): BP systolic 147–165; BP diastolic 69–79; PULSE 60–81; RESP 16–20; TEMP 97–98.9; O2SAT 84–100
[~2017-03-04 15:51] MED LIST changes: -ENOX60P SQ; +FURO1TAB62 PO; +OXYGENDME NAS.CANULA
--- NOTE | 2017-03-04 16:22 | PD ---
HPI Chief Complaint: shortness of breath Time Seen by Provider: 16:16 Travel History International Travel<30 days: No Contact w/Intl Traveler<30days: No Traveled to known affect area: No History of Present Illness HPI 86-year-old female was brought to the emergency room by EMS for shortness of breath. She has history of congestive heart failure and a pacemaker. She was recently admitted for CHF last month after which she was sent to rehabilitation. Patient was in rehabilitation for about 2 weeks and discharged home. However for past couple days she has started developing shortness of breath again. She has significant leg edema. She was visibly short of breath in the ER at rest when I was seeing her. Patient says that she saw her deaf teacher yesterday and did mention about the shortness of breath. Her oxygen saturation was 84% on room air. [facility] Past Medical History Narrative Medical List of her past medical, surgical, social and family history is reviewed from the nursing note. Hx Anticoagulant Therapy: Yes (COUMADIN) Arthritis: Yes Asthma: No Atrial Fibrillation: Yes Autoimmune Disease: No Blood Disorders: No Heart Rhythm Problems: Yes Cancer: No Cardiovascular Problems: Yes (PACEMAKER/CHF) High Cholesterol: No Chemotherapy: No Chest Pain: No Congestive Heart Failure: Yes COPD: No Cerebrovascular Accident: No Diabetes: No Diminished Hearing: Yes Endocrine: Yes Gastrointestinal Disorders: No GERD: Yes (Occasionally) Genitourinary: No Headaches: No Hiatal Hernia: No Heparin Induced Thrombocytopen: No Hypertension: Yes (PMH) Immune Disorder: No Implanted Vascular Access Dvce: Yes (PACEMAKER) Kidney Stones: No Musculoskeletal: No Neurologic: No Psychiatric: No Reproductive: No Respiratory: Yes Migraines: No Radiation Therapy: No Renal Failure: No Seizures: No Sickle Cell Disease: No Sleep Apnea: No Thyroid Disease: Yes (Hypothyroidism) Ulcer: No Menopausal: Yes : 3 Para: 3 Past Surgical History Abdominal Surgery: No AICD: No Arteriovenous Shunt: Yes Body Medical Devices: pacemaker Cardiac Surgery: Yes (Pacemaker) Ear Surgery: No Endocrine Surgery: No Eye Surgery: Yes (Bilateral cataract removal with Implants) Genitourinary Surgery: Yes (Bladder Mesh/Pesserie) Gynecologic Surgery: No Hysterectomy: Yes Insulin Pump: No Joint Replacement: No Neurologic Surgery: No Oral Surgery: Yes (Teeth removed) Pacemaker: Yes Thoracic Surgery: No Other Surgery: Yes Social History Alcohol Use: No (PT DENIES) Tobacco Use: No Substance Use: No Allergies-Medications (Allergen,Severity, Reaction): Coded Allergies: No Known Allergies (Unverified , 02/09/17) Comments No known drug allergies. Reported Meds & Prescriptions Reported Meds & Active Scripts Active Lasix (Furosemide) 20 Mg Tab 20 Mg PO DAILY Oxygen (O2) Device 2 Liter YRIS.CANULA CONTINUOUS Oxygen Concentrator Portable Gaseous 2 L/min via Nasal Canula Continuous For 99 months [guaiFENesin ER] 600 MG Tabcr 600 Mg PO BID Acidophilus/l-Sporogenes (Lactobacillus Acidophilus) 1 Tab Tab 1 Tab PO TID Hydrocodone-Acetaminophen 5-325 mg Tab 1 Tab PO Q4H PRN Do not take this medicine if you will drive a car or use a machine, only use it when resting at home. Cardizem CD 24 HR (Diltiazem CD 24 HR) 240 Mg Caper 240 Mg PO DAILY Amiodarone (Amiodarone HCl) 200 Mg Tab 200 Mg PO DAILY Combivent Respimat Inh (Ipratropium-Albuterol Inh) 20-100 Snf/Act Aero 1 Puff INH QID Reported Levothyroxine (Levothyroxine Sodium) 50 Mcg Tab 50 Mcg PO DAILY Metoprolol Tartrate 100 Mg Tab 100 Mg PO BID Warfarin 2 Mg Tab 2 Mg PO DAILY every day but friday Pantoprazole (Pantoprazole Sodium) 40 Mg Tab 40 Mg PO DAILY Narrative Medication List of her home medications reviewed from the nursing note. Review of Systems Except as stated in HPI: all other systems reviewed are Neg Physical Exam Narrative GENERAL: Awake, alert, moderate distress, elderly and frail SKIN: Focused skin assessment warm/dry. HEAD: Atraumatic. Normocephalic. EYES: Pupils equal and round. No scleral icterus. No injection or drainage. ENT: No nasal bleeding or discharge. Mucous membranes pink and moist. NECK: Trachea midline. No JVD. CARDIOVASCULAR: Regular rate and rhythm. No murmur appreciated. RESPIRATORY: Moderate respiratory distress, tachypnea, coarse by basilar crackle GASTROINTESTINAL: Abdomen soft, non-tender, nondistended. Hepatic and splenic margins not palpable. MUSCULOSKELETAL: No obvious deformities. No clubbing. No cyanosis. 3+ pedal edema NEUROLOGICAL: Awake and alert. No obvious cranial nerve deficits. Motor grossly within normal limits. Normal speech. PSYCHIATRIC: Appropriate mood and affect; insight and judgment normal. Data Data Last Documented VS Vital Signs Date Time Temp Pulse Resp B/P Pulse Ox O2 Delivery O2 Flow Rate FiO2 03/04/17 18:15 100 50 03/04/17 17:44 Nasal Cannula 3.00 03/04/17 17:44 78 20 160/75 03/04/17 16:22 97.7 Orders Complete Blood Count With Diff (03/04/17 16:28) Basic Metabolic Panel (Bmp) (03/04/17 16:28) B-Type Natriuretic Peptide (03/04/17 16:28) Prothrombin Time / Inr (Pt) (03/04/17 16:28) Magnesium (Mg) (03/04/17 16:28) Ckmb (Isoenzyme) Profile (03/04/17 16:28) Troponin I (03/04/17 16:28) Urinalysis - C+S If Indicated (03/04/17 16:28) Iv Access Insert/Monitor (03/04/17 16:28) Electrocardiogram (03/04/17 16:28) Ecg Monitoring (03/04/17 16:28) Oximetry (03/04/17 16:28) Oxygen Administration (03/04/17 16:28) Chest, Single Ap (03/04/17 16:28) Sodium Chloride 0.9% Flush (Ns Flush) (03/04/17 16:30) Furosemide Inj (Lasix Inj) (03/04/17 16:30) Urinary Catheter Insert/Apply (03/04/17 16:28) Type And Screen (03/04/17 16:53) Resp Bipap / Cpap Non Invas Vt (03/04/17 ) Arterial Blood Gas (Abg) (03/04/17 ) Red Blood Cells (Rbc) (03/04/17 17:35) Admit Order (Ed Use Only) (03/04/17 19:16) Direct Danilo (03/04/17 17:35) Labs Laboratory Tests Test 03/04/17 03/04/17 03/04/17 03/04/17 16:40 17:30 17:35 17:42 White Blood Count 8.1 TH/MM3 Red Blood Count 3.70 MIL/MM3 Hemoglobin 10.4 GM/DL Hematocrit 30.3 % Mean Corpuscular Volume 81.9 FL Mean Corpuscular Hemoglobin 28.0 PG Mean Corpuscular Hemoglobin 34.2 % Concent Red Cell Distribution Width 15.8 % Platelet Count 315 TH/MM3 Mean Platelet Volume 9.7 FL Neutrophils (%) (Auto) 69.8 % Lymphocytes (%) (Auto) 19.6 % Monocytes (%) (Auto) 7.9 % Eosinophils (%) (Auto) 2.3 % Basophils (%) (Auto) 0.4 % Neutrophils # (Auto) 5.7 TH/MM3 Lymphocytes # (Auto) 1.6 TH/MM3 Monocytes # (Auto) 0.6 TH/MM3 Eosinophils # (Auto) 0.2 TH/MM3 Basophils # (Auto) 0.0 TH/MM3 CBC Comment DIFF FINAL Differential Comment Prothrombin Time 110.9 SEC Prothromb Time International 9.1 RATIO Ratio Sodium Level 136 MEQ/L Potassium Level 3.7 MEQ/L Chloride Level 104 MEQ/L Carbon Dioxide Level 26.0 MEQ/L Anion Gap 6 MEQ/L Blood Urea Nitrogen 32 MG/DL Creatinine 1.24 MG/DL Estimat Glomerular Filtration 41 ML/MIN Rate Random Glucose 89 MG/DL Calcium Level 8.2 MG/DL Magnesium Level 2.2 MG/DL Total Creatine Kinase 41 U/L Troponin I LESS THAN 0.02 NG/ML B-Type Natriuretic Peptide 1693 PG/ML Antibody Identification Non-Specific Cold Agglutinin Blood Type A POSITIVE Antibody Screen POSITIVE Prewarmed Antibody Screen NEGATIVE Direct Antiglobulin Test NEGATIVE (Danilo) Crossmatch Leukocyte-Reduced Red Blood Cells Blood Bank Comment Urine Color YELLOW Urine Turbidity CLEAR Urine pH 5.5 Urine Specific [place] 1.011 Urine Protein TRACE mg/dL Urine Glucose (UA) NEG mg/dL Urine Ketones NEG mg/dL Urine Occult Blood NEG Urine Nitrite NEG Urine Bilirubin NEG Urine Urobilinogen LESS THAN 2.0 MG/DL Urine Leukocyte Esterase NEG Urine RBC 2 /hpf Urine WBC LESS THAN 1 /hpf Urine Mucus FEW /lpf Microscopic Urinalysis Comment CULT NOT INDICATED Test 03/04/17 18:03 Blood Gas Puncture Site RT RADIAL Blood Gas Patient Temperature 98.6 Blood Gas HCO3 21 mmol/L Blood Gas Base Excess -2.4 mmol/L Blood Gas Oxygen Saturation 98 % Arterial Blood pH 7.46 Arterial Blood Partial 30 mmHg Pressure CO2 Arterial Blood Partial 313 mmHG Pressure O2 Arterial Blood Oxygen Content 14.3 Vol % Arterial Blood 1.4 % Carboxyhemoglobin Arterial Blood Methemoglobin 0.5 % Blood Gas Hemoglobin 9.8 G/DL Oxygen Delivery Device BiPAP Blood Gas Ventilator Setting IPAP15/EPAP7 Blood Gas Inspired Oxygen 100 % MDM Medical Decision Making Medical Screen Exam Complete: Yes Emergency Medical Condition: Yes Medical Record Reviewed: Yes Interpretation(s) Twelve-lead EKG was reviewed by me. Paced rhythm. Heart rate of 81 bpm Differential Diagnosis Congestive heart failure, pleural effusion, pneumonia Narrative Course 6:45 PM patient was initially given 40 mg of IV Lasix based on her clinical presentation. Blood test results of back and patient has congestive heart failure on chest x-ray as well as BNP is elevated. I was told by the nurse at patient's respiratory distress was worsening at which point I put her on a BiPAP and asked for blood gas. Blood gas appears to be good but patient told me just now when I went to reassess her that the BiPAP is helping. She seems much more relaxed and sleeping at this point. I discussed with her sister and let her know that patient would require admission. Also her INR was supratherapeutic. I haven't given her any medication to reverse the INR. I think at this point since she does not have any usman bleeding from anywhere just holding the Coumadin and checking her INR should suffice. Awaiting for the hospitalist call back. 7:17 PM I discussed the this with her sister and she mentioned that patient lives at home with her son and grandson who just had a baby with his girlfriend. Everybody is busy there and there is nobody to take care of her. Patient has been eating a lot of microwavable food that is high in sodium content which could be adding to her recurrent congestive heart failure. Critical Care Narrative Aggregate critical care time was 45 minutes. Time to perform other separately billable procedures was not included in the critical care time. My time did not include minutes spent treating any other patients simultaneously or on activities that did not directly contribute to the patient's treatment. The services I provided to this patient were to treat and/or prevent clinically significant deterioration that could result in: Respiratory distress, BiPAP, acute congestive heart failure I provided critical care services requiring my management, as noted below: Chart data review, documentation time, medication orders and management, vital sign assessments/reviewing monitor data, ordering and reviewing lab tests, ordering and interpreting/reviewing x-rays and diagnostic studies, care of the patient and discussion of the patient with the admitting physicians. Procedures EKG Prior to Arrival: No Diagnosis Primary Impression: CHF (congestive heart failure) Qualified Code: I50.9 - Congestive heart failure, unspecified congestive heart failure chronicity, unspecified congestive heart failure type Additional Impressions: Respiratory distress Coumadin toxicity Qualified Code: T45.511A - Poisoning by warfarin sodium, accidental or unintentional, initial encounter Hypoxia Admitting Information Admitting Physician Requests: Bossman Roth MD Mar 04, 2017 16:22
[2017-03-04] MEDS ORDERED: FUROSEMIDE 40 MG/4 ML VIAL IVP ONE (16:30)
[2017-03-04] MEDS ORDERED: SODIUM CHLORIDE 0.9% FLUSH 10 ML FLUSH IVF PRN (16:30)
--- NOTE | 2017-03-04 17:08 | RADRPT ---
EXAM DATE/TIME: 03/04/2017 16:31 [facility] COMPARISON: CHEST SINGLE AP, February 09, 2017, 5:23. INDICATIONS : Short of breath MEDICAL HISTORY : Congestive heart failure. Hypertension Gastroesophageal reflux disease. SURGICAL HISTORY : Pacemaker. A-V shunt ENCOUNTER: Initial ACUITY: 1 day PAIN SCORE: 0/10 LOCATION: Bilateral chest FINDINGS: The heart is enlarged. There are moderate sized bilateral effusion and diffuse interstitial prominenc e suggesting CHF. There is a transvenous pacer present. Study is compared directly to previous of 01/19 10/04 and is stable. There are degenerative changes in the shoulders. The visualized osseous structures are otherwise inta ct. CONCLUSION: Moderate CHF. Stable compared to previous. Sam Chacon MD on March 04, 2017 at 17:06 Board Certified Radiologist. This report was verified electronically.
[2017-03-04 17:41] LABS: AUTOMATED NEUTROPHIL # 5.7 TH/MM3 (1.8-7.7); BASOPHIL % 0.4 % (0.0-2.0); EOSINOPHIL # 0.2 TH/MM3 (0-0.4); EOSINOPHIL % 2.3 % (0.0-4.0); HEMATOCRIT 30.3 % (35.0-46.0); HEMO FLAGS DIFF FINAL; LYMPH % 19.6 % (9.0-44.0); LYMPHOCYTE # 1.6 TH/MM3 (1.0-4.8); MEAN CELL VOLUME 81.9 FL (80.0-100.0); MEAN CORPUSCULAR HGB CONC 34.2 % (32.0-36.0); MONO % 7.9 % (0.0-8.0); NEUT % 69.8 % (16.0-70.0); PLATELET COUNT 315 TH/MM3 (150-450); RED CELL DISTRIBUTION WIDTH 15.8 % (11.6-17.2); WHITE BLOOD COUNT 8.1 TH/MM3 (4.0-11.0)
[2017-03-04 17:44] LABS: PROTHROMBIN TIME - PATIENT 110.9 SEC (9.8-11.6)
[2017-03-04 17:55] LABS: INTERNATIONAL NORMALIZED RATIO 9.1 RATIO
[2017-03-04 17:58] LABS: ANION GAP 6 MEQ/L (5-15); BLOOD UREA NITROGEN 32 MG/DL (7-18); CHLORIDE 104 MEQ/L (98-107); GLOMERULAR FILTRATION RATE 41 ML/MIN (>89); MAGNESIUM 2.2 MG/DL (1.5-2.5); POTASSIUM 3.7 MEQ/L (3.5-5.1); SODIUM (NA) 136 MEQ/L (136-145)
[2017-03-04 18:06] LABS: CREATINE KINASE 41 U/L (26-192)
[2017-03-04 18:17] LABS: BLOOD GAS BASE EXCESS -2.4 mmol/L (-2-2); BLOOD GAS CARBOXYHEMOGLOBIN 1.4 % (0-4); BLOOD GAS HCO3 21 mmol/L (22-26); BLOOD GAS METHEMOGLOBIN 0.5 % (0-2); BLOOD GAS O2 HGB SATURATION 98 % (90-100); BLOOD GAS OXYGEN CONTENT 14.3 Vol % (12.0-20.0); BLOOD GAS PCO2 30 mmHg (38-42); BLOOD GAS PO2 313 mmHG (61-120); BLOOD GAS TOTAL HGB 9.8 G/DL (12.0-16.0); CRITICAL VALUE NO; DRAW SITE RT RADIAL; FIO2 100 %; NUMBER OF ARTERIAL PUNCTURES 1; OXYGEN DEVICE BiPAP; STAT YES; TEMP CORR TO 98.6; ULNAR PULSE PRESENT; VENT SETTINGS IPAP15/EPAP7
[2017-03-04 18:28] LABS: BLOOD, URINE NEG (NEG); COMMENT (UR) CULT NOT INDICATED; CULTURE IF INDICATED CULT NOT INDICATED; GLUCOSE,URINE NEG (NEG); KETONE, URINE NEG (NEG); MUCUS URINE FEW /lpf (OCC); NITRITE,URINE NEG (NEG); PH, URINE 5.5 (5.0-8.5); URINE COLOR YELLOW (YELLW/STRAW)
[2017-03-04] MEDS ORDERED: SODIUM CHLORIDE 0.9% FLUSH 10 ML FLUSH IV FLUSH PRN (20:00)
[2017-03-04] MEDS ORDERED: NALOXONE HCL 0.4 MG/ML AMP IV PRN (20:00)
[2017-03-04] MEDS ORDERED: MORPHINE SULFATE 4 MG/ML INJ IV PUSH ONE (21:00)
--- NOTE | 2017-03-04 21:06 | HHI.HP ---
HPI Service [facility] Hospitalists Primary Care Physician Bia Tovar MD Admission Diagnosis congestive heart failure, hypoxia, respiratory distress Diagnoses: Chief Complaint: Dyspnea and lower extremity edema Travel History International Travel<30 Days: No Contact w/Intl Traveler <30 Da: No Traveled to Known Affected Are: No History of Present Illness Written by THOMAS Garvin acting as scribe for [Ruthie] on 03/04/17 at 20: 52. 86 y/o female with a history of CHF, COPD with home O2, pacemaker, CKD stage 3, hypothyroidism, afib on Coumadin and HTN presented to the ED with complaints of dyspnea. She states she just couldn't breath and it has been coming on slowly, she also has increased leg swelling. She does have abdominal pain that started today and she says the pressure from the fluid is what causes her pain. Denies any fever, chills, chest pain, dysuria, dizziness, nausea, vomiting, diarrhea or headaches. She only takes her Lasix every other night. She was just recently discharged from the nursing rehab center on February 17, she has not been on antibiotics since rehab. She was seen yesterday for a pacemaker check and was told her heart rhythm was off, and her amiodarone was increased. She was going to follow up on . Echo 12/2016 EF 30-35% Front End Loader Operator: Dr. Dumont Laboratory Veterinarian: Dr. Jansen Review of Systems Except as stated in HPI: all other systems reviewed are Neg Past Family Social History Past Medical History CHF EF 30-35% pacemaker hypothyroidism afib on Coumadin HTN COPD with home O2 CKD stage 3 Past Surgical History Bladder mesh Cataract surgery Pacemaker Reported Medications Reported Meds & Active Scripts Active Lasix (Furosemide) 20 Mg Tab 20 Mg PO DAILY Oxygen (O2) Device 2 Liter YRIS.CANULA CONTINUOUS Oxygen Concentrator Portable Gaseous 2 L/min via Nasal Canula Continuous For 99 months [guaiFENesin ER] 600 MG Tabcr 600 Mg PO BID Acidophilus/l-Sporogenes (Lactobacillus Acidophilus) 1 Tab Tab 1 Tab PO TID Hydrocodone-Acetaminophen 5-325 mg Tab 1 Tab PO Q4H PRN Do not take this medicine if you will drive a car or use a machine, only use it when resting at home. Cardizem CD 24 HR (Diltiazem CD 24 HR) 240 Mg Caper 240 Mg PO DAILY Amiodarone (Amiodarone HCl) 200 Mg Tab 200 Mg PO DAILY Combivent Respimat Inh (Ipratropium-Albuterol Inh) 20-100 Jail/Act Aero 1 Puff INH QID Reported Levothyroxine (Levothyroxine Sodium) 50 Mcg Tab 50 Mcg PO DAILY Metoprolol Tartrate 100 Mg Tab 100 Mg PO BID Warfarin 2 Mg Tab 2 Mg PO DAILY every day but friday Pantoprazole (Pantoprazole Sodium) 40 Mg Tab 40 Mg PO DAILY Allergies: Coded Allergies: No Known Allergies (Unverified , 02/09/17) Active Ordered Medications Current Medications Medications (Trade) Dose Ordered Sig/Ricky Route Start Time Stop Time Status Last Admin (NS Flush) 2 ml UNSCH PRN IVF 03/04/17 16:30 (NS Flush) 2 ml UNSCH PRN IV FLUSH 03/04/17 20:00 (NS Flush) 2 ml BID IV FLUSH 03/04/17 21:00 (Narcan Inj) 0.4 mg UNSCH PRN IV 03/04/17 20:00 (Morphine Inj) 1 mg ONCE ONCE IV PUSH 03/04/17 21:00 03/04/17 21:01 03/04/17 20:25 (Lasix Inj) 40 mg BID@09,18 IV PUSH 03/05/17 09:00 Family History Sister: DM Dad: Hodgkin lymphoma Mom: Afib Sister: TIA Social History Tobacco use: Only second hand Alcohol use: Denies Illicit drug use: Denies Physical Exam Vital Signs Vital Signs Date Time Temp Pulse Resp B/P Pulse Ox O2 Delivery O2 Flow Rate FiO2 03/04/17 20:40 81 20 165/77 97 BiPAP 40 03/04/17 19:20 98.9 60 19 147/79 99 BiPAP 50 03/04/17 18:15 100 50 03/04/17 17:55 100 100 03/04/17 17:44 78 20 160/75 87 Nasal Cannula 3 03/04/17 16:32 20 91 Nasal Cannula 2 03/04/17 16:22 97.7 76 20 160/75 91 03/04/17 15:52 98.4 64 20 162/69 84 Room Air Physical Exam GENERAL: This is a well-nourished, well-developed patient, in no apparent distress. SKIN: No rashes, ecchymoses or lesions. Cool and dry. HEAD: Atraumatic. Normocephalic. EYES: Pupils equal round and reactive. Extraocular motions intact. ENT: Nose without bleeding, purulent drainage or septal hematoma. Airway patent. NECK: Trachea midline. No JVD or lymphadenopathy. CARDIOVASCULAR: Regular rate and rhythm without murmurs, gallops, or rubs. RESPIRATORY: Clear to auscultation. Breath sounds equal bilaterally. No wheezes , rales, or rhonchi. Recently weaning from bipap. GASTROINTESTINAL: Abdomen soft, non-tender, nondistended. No hepato-splenomegaly , or palpable masses. No guarding. MUSCULOSKELETAL: No bilateral lower extremity edema. No joint tenderness, effusion, or edema noted. No calf tenderness. NEUROLOGICAL: Awake and alert. Motor and sensory grossly within normal limits. Normal speech. Laboratory Laboratory Tests Test 03/04/17 03/04/17 03/04/17 03/04/17 16:40 17:35 17:42 18:03 White Blood Count 8.1 Red Blood Count 3.70 Hemoglobin 10.4 Hematocrit 30.3 Mean Corpuscular Volume 81.9 Mean Corpuscular Hemoglobin 28.0 Mean Corpuscular Hemoglobin 34.2 Concent Red Cell Distribution Width 15.8 Platelet Count 315 Mean Platelet Volume 9.7 Neutrophils (%) (Auto) 69.8 Lymphocytes (%) (Auto) 19.6 Monocytes (%) (Auto) 7.9 Eosinophils (%) (Auto) 2.3 Basophils (%) (Auto) 0.4 Neutrophils # (Auto) 5.7 Lymphocytes # (Auto) 1.6 Monocytes # (Auto) 0.6 Eosinophils # (Auto) 0.2 Basophils # (Auto) 0.0 CBC Comment DIFF FINAL Differential Comment Prothrombin Time 110.9 Prothromb Time International 9.1 Ratio Sodium Level 136 Potassium Level 3.7 Chloride Level 104 Carbon Dioxide Level 26.0 Anion Gap 6 Blood Urea Nitrogen 32 Creatinine 1.24 Estimat Glomerular Filtration 41 Rate Random Glucose 89 Calcium Level 8.2 Magnesium Level 2.2 Total Creatine Kinase 41 Troponin I LESS THAN 0.02 B-Type Natriuretic Peptide 1693 Blood Type A POSITIVE Antibody Screen POSITIVE Crossmatch Leukocyte-Reduced Red Blood Cells Urine Color YELLOW Urine Turbidity CLEAR Urine pH 5.5 Urine Specific [place] 1.011 Urine Protein TRACE Urine Glucose (UA) NEG Urine Ketones NEG Urine Occult Blood NEG Urine Nitrite NEG Urine Bilirubin NEG Urine Urobilinogen LESS THAN 2.0 Urine Leukocyte Esterase NEG Urine RBC 2 Urine WBC LESS THAN 1 Urine Mucus FEW Microscopic Urinalysis Comment CULT NOT INDICATED Blood Gas Puncture Site RT RADIAL Blood Gas Patient Temperature 98.6 Blood Gas HCO3 21 Blood Gas Base Excess -2.4 Blood Gas Oxygen Saturation 98 Arterial Blood pH 7.46 Arterial Blood Partial 30 Pressure CO2 Arterial Blood Partial 313 Pressure O2 Arterial Blood Oxygen Content 14.3 Arterial Blood 1.4 Carboxyhemoglobin Arterial Blood Methemoglobin 0.5 Blood Gas Hemoglobin 9.8 Oxygen Delivery Device BiPAP Blood Gas Ventilator Setting IPAP15/EPAP7 Blood Gas Inspired Oxygen 100 Result Diagram: 03/04/17 1640 03/04/17 1640 Imaging Last Impressions Chest X-Ray 03/04/17 1628 Signed Impressions: Service Date/Time: Saturday, March 04, 2017 16:31 - CONCLUSION: Moderate CHF. Stable compared to previous. Sam Chacon MD Assessment and Plan Problem List: (1) Acute exacerbation of CHF (congestive heart failure) ICD Code: I50.9 Status: Acute (2) Acute respiratory failure ICD Code: J96.00 Status: Acute (3) Supratherapeutic INR ICD Code: R79.1 Status: Acute (4) HTN (hypertension) ICD Code: I10 Status: Chronic (5) Hypothyroidism ICD Code: E03.9 Status: Acute Assessment and Plan 86 y/o female with a history of CHF, COPD with home O2, pacemaker, CKD stage 3, hypothyroidism, afib on Coumadin and HTN presented to the ED with complaints of dyspnea and increased leg swelling. Acute exacerbation of CHF, last echo 12/2016 shows EF 30-35%, BNP 1693 Chest xray reviewed and shows moderate CHF -Lasix 40mg IV given in ED, Cont 20mg IV BID -Consult cardiology for recommendations Acute Respiratory failure, 84% on rm air, patient uses O2 at HS -Bipap, wean as tolerated to NC Afib, chronic, with pacemaker placement, patient was told yesterday she had an abnormal rhythm -Restart amiodarone 400 mg BID -Monitor tele Supratherapeutic INR, INR 9.1, no active bleeding -Hold Coumadin for now -Recheck INR in AM HTN, chronic -Resume home medications Hypothyroidism, chronic -Resume home medication Synthroid DVT prophylaxis: SCDs, hold Coumadin due to supratherapeutic INR This note was transcribed by scribsherman [Teresa heaton]. I, Dr. Og Hendricks personally performed the history, physical exam, and medical decision making; and confirmed the accuracy of the information in the transcribed note. Authenticated by Dr. Og Hendricks on 03/04/17 at 20:52. Discussed Condition With Patient, RN and ED physician Physician Certification 2 Midnight Certification Type: Admission for Inpatient Services Order for Inpatient Services The services are ordered in accordance with Medicare regulations or non- Medicare payer requirements, as applicable. In the case of services not specified as inpatient-only, they are appropriately provided as inpatient services in accordance with the 2-midnight benchmark. Estimated LOS (days): 4 days is the estimated time the patient will need to remain in the hospital, assuming treatment plan goals are met and no additional complications. Post-Hospital Plan: Teresa Dutton Mar 04, 2017 21:06 Og Hendricks MD Mar 05, 2017 07:12
[2017-03-04] MEDS: SODIUM CHLORIDE 0.9% FLUSH 10 ML FLUSH IV FLUSH SCH (21:07)
[2017-03-04] MEDS ORDERED: AMIODARONE 200 MG TAB PO SCH (22:00)
[2017-03-05] VITALS (31 sets, daily range): BP systolic 121–157; BP diastolic 50–69; PULSE 60–87; RESP 16–20; TEMP 97–99; O2SAT 92–99
--- NOTE | 2017-03-05 00:31 | EKG ---
Date Performed: 03/04/2017 Time Performed: 17:48:27 PTAGE: 86 years EKG: ELECTRONIC ATRIAL PACEMAKER ELECTRONIC VENTRICULAR PACEMAKER ABNORMAL RHYTHM ECG PREVIOUS TRACING : 02/09/2017 04.50 Compared to prior tracing no significant change DOCTOR: Edil Pack Interpretating Date/Time 03/05/2017 00:29:29
[2017-03-05] MEDS: LEVOTHYROXINE SODIUM 50 MCG TAB PO SCH (06:06)
[2017-03-05 06:57] LABS: PROTHROMBIN TIME - PATIENT 91.6 SEC (9.8-11.6)
[2017-03-05 06:59] LABS: INTERNATIONAL NORMALIZED RATIO 7.6 RATIO
[2017-03-05 07:13] LABS: BICARBONATE 25.4 MEQ/L (21.0-32.0); POTASSIUM 3.4 MEQ/L (3.5-5.1)
[2017-03-05 07:21] LABS: AUTOMATED NEUTROPHIL # 5.6 TH/MM3 (1.8-7.7); BASOPHIL % 0.6 % (0.0-2.0); EOSINOPHIL # 0.2 TH/MM3 (0-0.4); EOSINOPHIL % 2.1 % (0.0-4.0); HEMATOCRIT 29.4 % (35.0-46.0); LYMPHOCYTE # 1.4 TH/MM3 (1.0-4.8); MEAN CELL VOLUME 81.6 FL (80.0-100.0); MEAN CORPUSCULAR HEMOGLOBIN 27.3 PG (27.0-34.0); MEAN CORPUSCULAR HGB CONC 33.5 % (32.0-36.0); MONO % 6.9 % (0.0-8.0); NEUT % 72.4 % (16.0-70.0); PLATELET COUNT 220 TH/MM3 (150-450); WHITE BLOOD COUNT 7.7 TH/MM3 (4.0-11.0)
[2017-03-05 07:23] LABS: HEMO FLAGS AUTO DIFF
--- NOTE | 2017-03-05 08:29 | MB ---
cc: JOI MOE M.D. DATE OF CONSULTATION: 03/05/2017 REASON FOR CONSULTATION Congestive heart failure, nonsustained ventricular tachycardia. HISTORY OF PRESENT ILLNESS The patient is a very pleasant 86-year-old white female with a history of multiple medical problems including congestive heart failure, hypertension, hyperlipidemia, paroxysmal atrial fibrillation, paroxysmal ventricular tachycardia, who was brought to the hospital due to increasing shortness of breath. Chest x-ray has revealed mild to moderate congestive heart failure. The patient states for the past several days she has had increasing dyspnea with very minimal exertion. She denies chest pain, palpitations, lightheadedness, syncope, near-syncope, paroxysmal nocturnal dyspnea. She reports compliance with her medications, although she eats a fair amount of frozen foods which are high in sodium. In addition, she has had increased pedal edema this week. Since coming into the hospital her dyspnea has improved. PAST MEDICAL HISTORY 1. Moderate to severe cardiomyopathy with ejection fraction of 30-35% by echo December 2016 at which time she was admitted with congestive heart failure. She also had an episode of congestive heart failure 09/27/2013 in the setting of uncontrolled hypertension. 2. Diverticulosis. 3. Remote history of gastric ulcer. 4. Hyperlipidemia. 5. Hypertension. 6. 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 7. Paroxysmal atrial fibrillation. 8. Paroxysmal ventricular tachycardia. MEDICATIONS Her cardiac medications at home: 1. Amiodarone 400 mg q. daily. 2. Cardizem CD 240 mg q. daily. 3. Furosemide 20 mg q. daily. 4. Metoprolol tartrate 100 mg b.i.d. 5. Warfarin as directed. ALLERGIES No known drug allergies. FAMILY HISTORY Noncontributory. SOCIAL HISTORY The patient is a nonsmoker. There is no history of alcohol abuse. REVIEW OF SYSTEMS As in the history of present illness, otherwise negative or noncontributory. She also denies headache, abdominal pain, melena, dyspepsia, diarrhea, fevers, cough. PHYSICAL EXAMINATION VITAL SIGNS: On physical examination her blood pressure is 149/65 with a pulse of 69, respirations 16. GENERAL: In general she is a well-developed, well-nourished white female in no acute distress. HEENT/NECK: Jugular venous pressure is 8-9 cm of water. Carotid pulses are 2+ bilaterally and without bruits. CHEST: Examination of the chest reveals diminished breath sounds at the bases. CARDIAC: On cardiac examination she has a regular rhythm and rate without S3, S4, or murmur. ABDOMEN: On abdominal examination she has a soft, nontender abdomen. Bowel sounds are present. There is no definite hepatosplenomegaly. EXTREMITIES: Examination of the extremities reveals no clubbing or cyanosis. There is trace pretibial edema. LABORATORY Laboratory data includes WBC 7.7, hemoglobin 9.8, platelets 220, potassium 3.4, BUN 27, creatinine 1.15, CK 41, troponin less than 0.02, INR 9.1. EKG EKG shows AV paced rhythm. IMAGING Chest x-ray shows moderate congestive heart failure. IMPRESSION Recurrent congestive heart failure, recent increase in nonsustained ventricular tachycardia, coagulopathy in this 86-year-old white female with a history of moderate to severe left ventricular dysfunction with ejection fraction of 30-35%, history of hypertension, pacemaker implant, paroxysmal atrial fibrillation. Overall there is no definite evidence for acute coronary syndrome. The precipitation of her congestive heart failure may be due to dietary noncompliance. She has had a fair amount of high sodium foods in the last few weeks. Recent interrogation of her pacemaker also has revealed increased episodes of nonsustained ventricular tachycardia, although never lasting more than a few seconds. At this time despite her elevated INR there is no definite evidence for active bleeding. On amiodarone, her paroxysmal atrial fibrillation has been well-controlled over the last few weeks. RECOMMENDATIONS 1. Continue intravenous Lasix diuresis. 2. Would continue amiodarone at 400 mg daily. 3. Continue beta chip therapy; consider the addition of an MIHAI inhibitor or Entresto. MD ARNULFO Davison/XUAN /8:03 AM /8:17 AM PEDRITO
--- NOTE | 2017-03-05 08:46 | HHI.PR ---
Subjective Remarks resting comfortably with no distress. says that her sob has improved. denies chest pain. Objective Vitals Vital Signs Date Time Temp Pulse Resp B/P Pulse Ox O2 Delivery O2 Flow Rate FiO2 03/05/17 07:01 69 03/05/17 06:00 68 03/05/17 05:00 60 03/05/17 04:00 97.0 64 18 150/69 99 03/05/17 04:00 64 03/05/17 03:50 95 40 03/05/17 03:00 80 03/05/17 02:00 62 03/05/17 01:00 66 03/05/17 00:00 97.0 65 16 149/65 97 03/04/17 23:00 72 03/04/17 22:00 68 03/04/17 21:30 97.0 77 16 157/74 100 03/04/17 21:20 95 40 03/04/17 20:40 81 20 165/77 97 BiPAP 40 03/04/17 20:02 93 40 03/04/17 19:25 99 50 03/04/17 19:20 98.9 60 19 147/79 99 BiPAP 50 03/04/17 18:15 100 50 03/04/17 17:55 100 100 03/04/17 17:44 78 20 160/75 87 Nasal Cannula 3 03/04/17 16:32 20 91 Nasal Cannula 2 03/04/17 16:22 97.7 76 20 160/75 91 03/04/17 15:52 98.4 64 20 162/69 84 Room Air I/O 03/04/17 03/04/17 03/04/17 03/05/17 03/05/17 03/05/17 06:59 14:59 22:59 06:59 14:59 22:59 Intake Total 240 ml Output Total 550 ml 800 ml Balance -550 ml -560 ml Intake Oral 240 ml Output Urine Total 550 ml 800 ml Result Diagram: 03/05/1751903/05/17519 Imaging Last Impressions Chest X-Ray 03/04/171627 Signed Impressions: Service Date/Time: Saturday, March 04, 2017 16:31 - CONCLUSION: Moderate CHF. Stable compared to previous. Sam Chacon MD Objective Remarks GENERAL: elderly female, in no apparent distress. CARDIOVASCULAR: Regular rate and regular rhythm without murmurs, gallops, or rubs. RESPIRATORY: basal crackles. GASTROINTESTINAL: Abdomen soft, non-tender, nondistended. Normal, active bowel sounds MUSCULOSKELETAL: Extremities with mild bilateral pedal edema. NEURO: Alert & Oriented x4 to person, place, time, situation. Moves all ext x4 Medications and IVs Current Medications Sodium Chloride (NS Flush) 2 ml UNSCH PRN IVF FLUSH AFTER USING IV ACCESS; Start 03/04/17 at 16:30; Stop 03/04/17 at 21:24; Status DC Furosemide (Lasix Inj) 40 mg ONCE ONCE IVP Last administered on 03/04/17 16: 59; Start 03/04/17 at 16:30; Stop 03/04/17 at 16:31; Status DC Sodium Chloride (NS Flush) 2 ml UNSCH PRN IV FLUSH FLUSH AFTER USING IV ACCESS ; Start 03/04/17 at 20:00 Sodium Chloride (NS Flush) 2 ml BID IV FLUSH Last administered on 03/04/17 21: 07; Start 03/04/17 at 21:00 Naloxone HCl (Narcan Inj) 0.4 mg UNSCH PRN IV SEE LABEL COMMENTS; Start at 20:00 Morphine Sulfate (Morphine Inj) 1 mg ONCE ONCE IV PUSH Last administered on 20:25; Start 03/04/17 at 21:00; Stop 03/04/17 at 21:01; Status DC Furosemide (Lasix Inj) 40 mg BID@09,18 IV PUSH ; Start 03/05/17 at 09:00; Stop 03/05/17 at 09:00; Status DC Furosemide (Lasix Inj) 20 mg BID@09,18 IV PUSH ; Start 03/05/17 at 09:00 Amiodarone HCl (Cordarone) 400 mg Q12HR PO Last administered on 03/04/17 23:38 ; Start 03/04/17 at 22:00; Stop 03/05/17 at 08:11; Status DC Diltiazem HCl (Cardizem Cd) 240 mg DAILY PO ; Start 03/05/17 at 09:00 Levothyroxine Sodium (Synthroid) 50 mcg DAILY@0600 PO Last administered on 03/05 06:06; Start 03/05/17 at 06:00 Metoprolol Tartrate (Lopressor) 100 mg BID PO ; Start 03/05/17 at 09:00 Pantoprazole Sodium (Protonix) 40 mg DAILY PO ; Start 03/05/17 at 09:00 Patient Own Medication PT OWN MED: Aero... QID INH ; Start 03/05/17 at 09:00; Status Future Hold Tiotropium [place] (Spiriva Inh) 18 mcg DAILY INH ; Start 03/05/17 at 09:00; Status Cancel Albuterol Sulfate (Proair Hfa Inh) 1 puff QID INH ; Start 03/05/17 at 09:00; Status Cancel Amiodarone HCl (Cordarone) 400 mg DAILY PO ; Start 03/05/17 at 09:00 Sacubitril/ Valsartan (Entresto 24-26 Mg) 1 tab BID PO ; Start 03/05/17 at 09:00 Urinary Catheter: Yes Assessment to: Continue [place] insert reason: Measure Accurate Output Date of Insertion: Mar 04, 2017 Date of Removal: Mar 06, 2017 A/P Assessment and Plan A/P Acute on chronic systolic CHF, last echo 12/2016 shows EF 30-35% Chest xray reviewed and shows moderate CHF -Lasix 40mg IV given in ED, Cont 20mg IV BID -cardiology consult appreciated. -Entresto was added. -will keep [place] today for accurate output measurement- will dc tomorrow- Acute Respiratory failure, 84% on rm air, patient uses O2 at HS -keep on oxygen as needed to keep O2 sat >90%. Afib, chronic, with pacemaker placement -Restarted amiodarone 400 mg BID -Monitor tele hypokalemia; will replace as needed. Supratherapeutic INR, no active bleeding -Hold Coumadin for now -Recheck INR in AM HTN, chronic -Resumed home medications Hypothyroidism, chronic -Resumed home medication Synthroid DVT prophylaxis: SCDs, hold Coumadin due to supratherapeutic INR consult PT. Bolivar Savage MD Mar 05, 2017 08:46
[2017-03-05 08:47] LABS: KERATOCYTES OCC (NORMAL); OVALOCYTES 1+ (NORMAL); PLATELET ESTIMATE SMEAR NORMAL (NORMAL); PLATELET MORPHOLOGY NORMAL (NORMAL); SCAN/DIFF AUTO DIFF CONFIRMED
[2017-03-05] MEDS: DILTIAZEM-CD 240 MG CAP ER PO SCH (08:58)
[2017-03-05] MEDS: AMIODARONE 200 MG TAB PO SCH (08:58)
[2017-03-05] MEDS: FUROSEMIDE 40 MG/4 ML VIAL IV PUSH SCH ×2 (08:58→18:00)
[2017-03-05] MEDS: PANTOPRAZOLE SOD 40 MG DELAYED RELEASE TAB PO SCH (08:59)
[2017-03-05] MEDS: METOPROLOL TARTRATE 100 MG TAB PO SCH ×2 (08:59→22:21)
[2017-03-05] MEDS: SODIUM CHLORIDE 0.9% FLUSH 10 ML FLUSH IV FLUSH SCH ×2 (08:59→21:00)
[2017-03-05] MEDS ORDERED: ALBUTEROL SULFATE 90 MCG/ACT HFA 8 GM INHALER INH SCH (09:00)
[2017-03-05] MEDS ORDERED: FUROSEMIDE 40 MG/4 ML VIAL IV PUSH SCH (09:00)
[2017-03-05] MEDS: SACUBITRIL/VALSARTAN 24 MG-26 MG TAB PO SCH ×2 (09:00→22:22)
[2017-03-05] MEDS ORDERED: TIOTROPIUM BROMIDE 18 MCG INH INH SCH (09:00)
[2017-03-05] MEDS ORDERED: IPRATROPIUM INH SCH (09:00)
[2017-03-05] MEDS: POTASSIUM CHLORIDE 20 MEQ CONTROLLED RELEASE TAB PO SCH (09:00)
[2017-03-05] MEDS ORDERED: ALBUTEROL INH SCH (09:00)
[2017-03-05] MEDS ORDERED: hydrOXYzine HCL 10 MG TAB PO ONE (20:45)
[2017-03-06] VITALS (25 sets, daily range): BP systolic 109–121; BP diastolic 46–70; PULSE 60–91; RESP 16–18; TEMP 96.9–98.9; O2SAT 93–98
[2017-03-06] MEDS: LEVOTHYROXINE SODIUM 50 MCG TAB PO SCH (05:57)
[2017-03-06 06:57] LABS: PROTHROMBIN TIME - PATIENT 86.4 SEC (9.8-11.6)
[2017-03-06 07:01] LABS: INTERNATIONAL NORMALIZED RATIO 7.2 RATIO
[2017-03-06 07:10] LABS: BICARBONATE 26.2 MEQ/L (21.0-32.0); POTASSIUM 3.4 MEQ/L (3.5-5.1)
[2017-03-06] MEDS: DILTIAZEM-CD 240 MG CAP ER PO SCH (09:03)
[2017-03-06] MEDS: POTASSIUM CHLORIDE 20 MEQ CONTROLLED RELEASE TAB PO SCH (09:03)
[2017-03-06] MEDS: PANTOPRAZOLE SOD 40 MG DELAYED RELEASE TAB PO SCH (09:04)
[2017-03-06] MEDS: FUROSEMIDE 40 MG/4 ML VIAL IV PUSH SCH ×2 (09:04→18:16)
[2017-03-06] MEDS: SACUBITRIL/VALSARTAN 24 MG-26 MG TAB PO SCH ×2 (09:04→20:48)
[2017-03-06] MEDS: AMIODARONE 200 MG TAB PO SCH (09:04)
[2017-03-06] MEDS: METOPROLOL TARTRATE 100 MG TAB PO SCH ×2 (09:04→20:48)
[2017-03-06] MEDS: SODIUM CHLORIDE 0.9% FLUSH 10 ML FLUSH IV FLUSH SCH ×2 (09:05→20:49)
--- NOTE | 2017-03-06 09:38 | HHI.PR ---
Subjective Remarks in no acute distress. has some exertional dyspnea. no chest pain. d/w the RN and no acute issues over night. Objective Vitals Vital Signs Date Time Temp Pulse Resp B/P Pulse Ox O2 Delivery O2 Flow Rate FiO2 03/06/17 09:01 68 03/06/17 08:56 70 03/06/17 07:00 73 03/06/17 07:00 98.6 81 18 121/64 96 03/06/17 05:00 60 03/06/17 04:00 64 03/06/17 03:00 79 03/06/17 03:00 98.9 80 18 119/58 95 03/06/17 02:00 72 03/06/17 01:18 95 Nasal Cannula 2.00 03/06/17 01:00 68 03/06/17 00:00 66 03/05/17 23:00 79 03/05/17 23:00 99.0 87 18 124/64 95 03/05/17 22:02 95 Nasal Cannula 2.00 03/05/17 22:00 66 03/05/17 21:00 64 03/05/17 20:00 60 03/05/17 20:00 98.2 75 20 126/68 95 03/05/17 19:00 69 03/05/17 18:01 70 03/05/17 17:00 64 03/05/17 16:00 70 03/05/17 15:30 98.7 73 18 121/56 92 03/05/17 15:00 68 03/05/17 14:00 76 03/05/17 13:01 74 03/05/17 12:00 72 03/05/17 11:30 98.5 79 20 121/50 95 03/05/17 11:00 64 03/05/17 10:30 94 Nasal Cannula 2.00 03/05/17 10:00 60 I/O 03/05/17 03/05/17 03/05/17 03/06/17 03/06/17 03/06/17 06:59 14:59 22:59 06:59 14:59 22:59 Intake Total 240 ml 480 ml 461 ml Output Total 800 ml 700 ml 350 ml Balance -560 ml -220 ml 111 ml Intake Oral 240 ml 480 ml 461 ml Output Urine Total 800 ml 700 ml 350 ml # Bowel Movements 1 Result Diagram: 03/05/17 0520 03/06/17 0525 Imaging Last Impressions Chest X-Ray 03/04/17 1628 Signed Impressions: Service Date/Time: Saturday, March 04, 2017 16:31 - CONCLUSION: Moderate CHF. Stable compared to previous. Sam Chacon MD Objective Remarks GENERAL: elderly female, in no apparent distress. CARDIOVASCULAR: Regular rate and regular rhythm without murmurs, gallops, or rubs. RESPIRATORY: basal crackles. GASTROINTESTINAL: Abdomen soft, non-tender, nondistended. Normal, active bowel sounds MUSCULOSKELETAL: Extremities with mild bilateral pedal edema. NEURO: Alert & Oriented x4 to person, place, time, situation. Moves all ext x4 Medications and IVs Current Medications Sodium Chloride (NS Flush) 2 ml UNSCH PRN IVF FLUSH AFTER USING IV ACCESS; Start 03/04/17 at 16:30; Stop 03/04/17 at 21:24; Status DC Furosemide (Lasix Inj) 40 mg ONCE ONCE IVP Last administered on 03/04/17 16: 59; Start 03/04/17 at 16:30; Stop 03/04/17 at 16:31; Status DC Sodium Chloride (NS Flush) 2 ml UNSCH PRN IV FLUSH FLUSH AFTER USING IV ACCESS ; Start 03/04/17 at 20:00 Sodium Chloride (NS Flush) 2 ml BID IV FLUSH Last administered on 03/06/17 09: 05; Start 03/04/17 at 21:00 Naloxone HCl (Narcan Inj) 0.4 mg UNSCH PRN IV SEE LABEL COMMENTS; Start at 20:00 Morphine Sulfate (Morphine Inj) 1 mg ONCE ONCE IV PUSH Last administered on 20:25; Start 03/04/17 at 21:00; Stop 03/04/17 at 21:01; Status DC Furosemide (Lasix Inj) 40 mg BID@09,18 IV PUSH ; Start 03/05/17 at 09:00; Stop 03/05/17 at 09:00; Status DC Furosemide (Lasix Inj) 20 mg BID@09,18 IV PUSH Last administered on 03/06/17 09:04; Start 03/05/17 at 09:00 Amiodarone HCl (Cordarone) 400 mg Q12HR PO Last administered on 03/04/17 23:38 ; Start 03/04/17 at 22:00; Stop 03/05/17 at 08:11; Status DC Diltiazem HCl (Cardizem Cd) 240 mg DAILY PO Last administered on 03/06/17 09: 03; Start 03/05/17 at 09:00 Levothyroxine Sodium (Synthroid) 50 mcg DAILY@0600 PO Last administered on 03/06 05:57; Start 03/05/17 at 06:00 Metoprolol Tartrate (Lopressor) 100 mg BID PO Last administered on 03/06/17 09 :04; Start 03/05/17 at 09:00 Pantoprazole Sodium (Protonix) 40 mg DAILY PO Last administered on 03/06/17 09 :04; Start 03/05/17 at 09:00 Patient Own Medication PT OWN MED: Aero... QID INH ; Start 03/05/17 at 09:00; Status Hold Tiotropium [place] (Spiriva Inh) 18 mcg DAILY INH ; Start 03/05/17 at 09:00; Status Cancel Albuterol Sulfate (Proair Hfa Inh) 1 puff QID INH ; Start 03/05/17 at 09:00; Status Cancel Amiodarone HCl (Cordarone) 400 mg DAILY PO Last administered on 03/06/17 09:04 ; Start 03/05/17 at 09:00 Sacubitril/ Valsartan (Entresto 24-26 Mg) 1 tab BID PO Last administered on 09:04; Start 03/05/17 at 09:00 Potassium Chloride (KCl) 20 meq DAILY PO Last administered on 03/06/17 09:03; Start 03/05/17 at 09:00 Hydroxyzine HCl (Atarax) 10 mg ONCE ONCE PO ; Start 03/05/17 at 20:45; Stop at 20:46; Status DC Date of Insertion: Mar 04, 2017 Date of Removal: Mar 06, 2017 A/P Assessment and Plan A/P Acute on chronic systolic CHF, last echo 12/2016 shows EF 30-35% Chest xray reviewed and shows moderate CHF -continue IV lasix -cardiology consult appreciated. -Entresto was added. -dc [place] cath today. Acute Respiratory failure, 84% on rm air, patient uses O2 at HS -keep on oxygen as needed to keep O2 sat >90%. Afib, chronic, with pacemaker placement -Restarted amiodarone 400 mg BID -Monitor tele hypokalemia; will replace as needed. Supratherapeutic INR, no active bleeding -continue to hold Coumadin for now -Recheck INR in AM HTN, chronic -Resumed home medications Hypothyroidism, chronic -Resumed home medication Synthroid DVT prophylaxis: SCDs, hold Coumadin due to supratherapeutic INR consulted PT. Discharge Planning case management for rehab. dc planning within the next 24-48 hrs - pending the clinical course. Bolivar Savage MD Mar 06, 2017 09:38
[2017-03-07] VITALS (25 sets, daily range): BP systolic 92–120; BP diastolic 41–64; PULSE 64–92; RESP 16–18; TEMP 97.9–98.9; O2SAT 95–99
[2017-03-07] MEDS: LEVOTHYROXINE SODIUM 50 MCG TAB PO SCH (04:53)
[2017-03-07] MEDS: METOPROLOL TARTRATE 100 MG TAB PO SCH ×2 (07:47→19:58)
[2017-03-07] MEDS: AMIODARONE 200 MG TAB PO SCH (07:47)
[2017-03-07] MEDS: DILTIAZEM-CD 240 MG CAP ER PO SCH (07:47)
[2017-03-07] MEDS: PANTOPRAZOLE SOD 40 MG DELAYED RELEASE TAB PO SCH (07:47)
[2017-03-07] MEDS: FUROSEMIDE 40 MG/4 ML VIAL IV PUSH SCH ×2 (07:47→17:13)
[2017-03-07] MEDS: SODIUM CHLORIDE 0.9% FLUSH 10 ML FLUSH IV FLUSH SCH ×2 (07:48→19:58)
[2017-03-07] MEDS: POTASSIUM CHLORIDE 20 MEQ CONTROLLED RELEASE TAB PO SCH (07:48)
[2017-03-07] MEDS: SACUBITRIL/VALSARTAN 24 MG-26 MG TAB PO SCH ×2 (07:48→19:58)
[2017-03-07 08:02] LABS: PROTHROMBIN TIME - PATIENT 78.3 SEC (9.8-11.6)
[2017-03-07 08:10] LABS: INTERNATIONAL NORMALIZED RATIO 6.5 RATIO
--- NOTE | 2017-03-07 09:08 | HHI.PR ---
Subjective Remarks f/u; CHF resting comfortably with no distress. good urine output. sob is better. no chest pain. Objective Vitals Vital Signs Date Time Temp Pulse Resp B/P Pulse Ox O2 Delivery O2 Flow Rate FiO2 03/07/17 06:00 77 03/07/17 05:00 79 03/07/17 04:00 98.7 76 18 120/60 95 03/07/17 04:00 75 03/07/17 03:00 66 03/07/17 02:00 78 03/07/17 01:00 73 03/07/17 00:00 73 03/07/17 00:00 98.5 92 16 120/56 96 03/06/17 23:00 65 03/06/17 22:00 64 03/06/17 21:00 70 03/06/17 20:00 97.6 80 16 109/46 97 03/06/17 20:00 82 03/06/17 19:31 95 03/06/17 19:00 64 03/06/17 18:42 78 03/06/17 17:04 71 03/06/17 16:49 69 03/06/17 15:46 96.9 68 16 116/70 93 03/06/17 15:00 66 03/06/17 14:20 91 03/06/17 13:03 78 03/06/17 12:22 71 03/06/17 11:00 68 03/06/17 11:00 98.0 70 18 121/66 98 I/O 03/06/17 03/06/17 03/06/17 03/07/17 03/07/17 03/07/17 07:00 15:00 23:00 07:00 15:00 23:00 Intake Total 461 ml 500 ml 360 ml Output Total 350 ml 680 ml 800 ml Balance 111 ml -180 ml -440 ml Intake Oral 461 ml 500 ml 360 ml IV Total 0 ml Output Urine Total 350 ml 680 ml 800 ml # Bowel Movements 1 1 Result Diagram: 03/05/17 0520 03/06/17 0525 Imaging Last Impressions Chest X-Ray 03/04/17 1628 Signed Impressions: Service Date/Time: Saturday, March 04, 2017 16:31 - CONCLUSION: Moderate CHF. Stable compared to previous. Sam Chacon MD Objective Remarks GENERAL: elderly female, in no apparent distress. CARDIOVASCULAR: Regular rate and regular rhythm without murmurs, gallops, or rubs. RESPIRATORY: basal crackles. GASTROINTESTINAL: Abdomen soft, non-tender, nondistended. Normal, active bowel sounds MUSCULOSKELETAL: Extremities with mild bilateral pedal edema. NEURO: Alert & Oriented x4 to person, place, time, situation. Moves all ext x4 Procedures none Medications and IVs Current Medications Sodium Chloride (NS Flush) 2 ml UNSCH PRN IVF FLUSH AFTER USING IV ACCESS; Start 03/04/17 at 16:30; Stop 03/04/17 at 21:24; Status DC Furosemide (Lasix Inj) 40 mg ONCE ONCE IVP Last administered on 03/04/17 16: 59; Start 03/04/17 at 16:30; Stop 03/04/17 at 16:31; Status DC Sodium Chloride (NS Flush) 2 ml UNSCH PRN IV FLUSH FLUSH AFTER USING IV ACCESS ; Start 03/04/17 at 20:00 Sodium Chloride (NS Flush) 2 ml BID IV FLUSH Last administered on 03/07/17 07: 48; Start 03/04/17 at 21:00 Naloxone HCl (Narcan Inj) 0.4 mg UNSCH PRN IV SEE LABEL COMMENTS; Start at 20:00 Morphine Sulfate (Morphine Inj) 1 mg ONCE ONCE IV PUSH Last administered on 20:25; Start 03/04/17 at 21:00; Stop 03/04/17 at 21:01; Status DC Furosemide (Lasix Inj) 40 mg BID@,18 IV PUSH ; Start 03/05/17 at 09:00; Stop 03/05/17 at 09:00; Status DC Furosemide (Lasix Inj) 20 mg BID@09,18 IV PUSH Last administered on 03/07/17 07:47; Start 03/05/17 at 09:00 Amiodarone HCl (Cordarone) 400 mg Q12HR PO Last administered on 03/04/17 23:38 ; Start 03/04/17 at 22:00; Stop 03/05/17 at 08:11; Status DC Diltiazem HCl (Cardizem Cd) 240 mg DAILY PO Last administered on 03/07/17 07: 47; Start 03/05/17 at 09:00 Levothyroxine Sodium (Synthroid) 50 mcg DAILY@0600 PO Last administered on 03/07 04:53; Start 03/05/17 at 06:00 Metoprolol Tartrate (Lopressor) 100 mg BID PO Last administered on 03/07/17 07 :47; Start 03/05/17 at 09:00 Pantoprazole Sodium (Protonix) 40 mg DAILY PO Last administered on 03/07/17 07 :47; Start 03/05/17 at 09:00 Patient Own Medication PT OWN MED: Aero... QID INH ; Start 03/05/17 at 09:00; Status Hold Tiotropium [place] (Spiriva Inh) 18 mcg DAILY INH ; Start 03/05/17 at 09:00; Status Cancel Albuterol Sulfate (Proair Hfa Inh) 1 puff QID INH ; Start 03/05/17 at 09:00; Status Cancel Amiodarone HCl (Cordarone) 400 mg DAILY PO Last administered on 03/07/17 07:47 ; Start 03/05/17 at 09:00 Sacubitril/ Valsartan (Entresto 24-26 Mg) 1 tab BID PO Last administered on 07:48; Start 03/05/17 at 09:00 Potassium Chloride (KCl) 20 meq DAILY PO Last administered on 03/07/17 07:48; Start 03/05/17 at 09:00 Hydroxyzine HCl (Atarax) 10 mg ONCE ONCE PO ; Start 03/05/17 at 20:45; Stop at 20:46; Status DC Date of Insertion: Mar 04, 2017 Date of Removal: Mar 06, 2017 A/P Assessment and Plan A/P Acute on chronic systolic CHF, last echo 12/2016 shows EF 30-35% Chest xray reviewed and shows moderate CHF -continue IV lasix -cardiology consult appreciated. -Entresto was added. Acute Respiratory failure, 84% on rm air, patient uses O2 at HS -keep on oxygen as needed to keep O2 sat >90%. Afib, chronic, with pacemaker placement -Restarted amiodarone 400 mg BID -Monitor tele hypokalemia; replaced. Supratherapeutic INR, no active bleeding -continue to hold Coumadin for now -Recheck INR in AM HTN, chronic -Resumed home medications Hypothyroidism, chronic -Resumed home medication Synthroid DVT prophylaxis: SCDs, hold Coumadin due to supratherapeutic INR consulted PT. Discharge Planning dc to SNF tomorrow if stable. dose of Coumadin needs to be adjusted prior to discharge- based on INR. Bolivar Savage MD Mar 07, 2017 09:08
[2017-03-07] MEDS ORDERED: SACU1TAB PO (09:12)
[2017-03-07] MEDS ORDERED: HYDR-3516 PO (09:12)
--- NOTE | 2017-03-07 09:13 | HHI.DCPOC ---
Discharge Care Plan Diagnosis: (1) CHF (congestive heart failure) Your Health Problems Are: Shortness of Breath Goals to Promote Your Health * To prevent worsening of your condition and complications * To maintain your health at the optimal level Directions to Meet Your Goals Take your medications as prescribed Follow your dietary instruction Follow activity as directed Keep your appointments as scheduled Take your immunizations and boosters as scheduled If your symptoms worsen call your PCP, if no PCP go to Urgent Care Center or Emergency Room Smoking is Dangerous to Your Health. Avoid second hand smoke Call the 24-hour hour crisis hotline for domestic abuse at Bolivar Savage MD Mar 07, 2017 09:13
[2017-03-08] VITALS (26 sets, daily range): BP systolic 103–108; BP diastolic 51–63; PULSE 63–82; RESP 18; TEMP 97.9–98.8; O2SAT 96–100
[2017-03-08] MEDS: LEVOTHYROXINE SODIUM 50 MCG TAB PO SCH (05:31)
[2017-03-08] MEDS: FUROSEMIDE 40 MG/4 ML VIAL IV PUSH SCH (09:08)
[2017-03-08] MEDS: DILTIAZEM-CD 240 MG CAP ER PO SCH (09:08)
[2017-03-08] MEDS: SACUBITRIL/VALSARTAN 24 MG-26 MG TAB PO SCH ×2 (09:08→20:47)
[2017-03-08] MEDS: POTASSIUM CHLORIDE 20 MEQ CONTROLLED RELEASE TAB PO SCH (09:08)
[2017-03-08] MEDS: SODIUM CHLORIDE 0.9% FLUSH 10 ML FLUSH IV FLUSH SCH ×2 (09:08→20:48)
[2017-03-08] MEDS: METOPROLOL TARTRATE 100 MG TAB PO SCH ×2 (09:08→20:47)
[2017-03-08] MEDS: AMIODARONE 200 MG TAB PO SCH (09:08)
[2017-03-08] MEDS: PANTOPRAZOLE SOD 40 MG DELAYED RELEASE TAB PO SCH (09:09)
[2017-03-08 09:48] LABS: INTERNATIONAL NORMALIZED RATIO 5.3 RATIO; PROTHROMBIN TIME - PATIENT 63.1 SEC (9.8-11.6)
[2017-03-08 09:58] LABS: BICARBONATE 23.1 MEQ/L (21.0-32.0)
[2017-03-08 10:02] LABS: POTASSIUM 4.5 MEQ/L (3.5-5.1)
--- NOTE | 2017-03-08 10:33 | HHI.PR ---
Subjective Remarks Pt tells me that she feels well. SOB is much improved. Denies any CP/N/V states that she doesn't have a big appetite but has been eating. No bleeding. Objective Vitals Vital Signs Date Time Temp Pulse Resp B/P Pulse Ox O2 Delivery O2 Flow Rate FiO2 03/08/17 09:00 65 03/08/17 08:00 77 03/08/17 07:00 98.8 71 18 107/54 96 03/08/17 07:00 66 03/08/17 06:05 71 03/08/17 05:32 98.2 82 18 108/52 100 03/08/17 05:05 71 03/08/17 04:10 76 03/08/17 03:12 69 03/08/17 02:13 63 03/08/17 01:27 68 03/08/17 00:13 64 03/07/17 23:14 65 03/07/17 23:13 98.7 65 18 95/41 96 03/07/17 22:09 69 03/07/17 20:00 98.7 64 18 116/64 95 03/07/17 18:05 76 03/07/17 17:50 65 03/07/17 16:33 69 03/07/17 15:27 65 03/07/17 15:26 97.9 82 18 102/51 99 03/07/17 14:10 65 03/07/17 13:16 66 03/07/17 12:24 66 03/07/17 11:03 67 03/07/17 11:00 98.0 64 18 92/42 98 03/07/17 10:36 69 I/O 03/07/17 03/07/17 03/07/17 03/08/17 03/08/17 03/08/17 07:00 15:00 23:00 07:00 15:00 23:00 Intake Total 360 ml 500 ml 240 ml Output Total 800 ml 500 ml 650 ml Balance -440 ml 0 ml -410 ml Intake Oral 360 ml 500 ml 240 ml IV Total 0 ml Output Urine Total 800 ml 500 ml 650 ml # Bowel Movements 1 0 Result Diagram: 03/05/17 0520 03/08/17 0730 Imaging Last Impressions Chest X-Ray 03/04/17 1628 Signed Impressions: Service Date/Time: Saturday, March 04, 2017 16:31 - CONCLUSION: Moderate CHF. Stable compared to previous. Sam Chacon MD Objective Remarks GENERAL: elderly female, sitting on side of bed, appears comfortable. EYES: EOMI CARDIOVASCULAR: Regular rate and regular rhythm without murmurs. RESPIRATORY: clear to auscultation this morning, no wheezing or crackles. GASTROINTESTINAL: Abdomen soft, non-tender, nondistended. MUSCULOSKELETAL: Extremities with trace edema. NEURO: Alert & Oriented. Moves all ext x4. answers questions appropriately. Procedures none Date of Insertion: Mar 04, 2017 Date of Removal: Mar 06, 2017 A/P Problem List: (1) Acute exacerbation of CHF (congestive heart failure) ICD Code: I50.9 Status: Acute (2) Acute respiratory failure ICD Code: J96.00 Status: Acute (3) Supratherapeutic INR ICD Code: R79.1 Status: Acute (4) HTN (hypertension) ICD Code: I10 Status: Chronic (5) Hypothyroidism ICD Code: E03.9 Status: Acute Assessment and Plan Acute on chronic systolic CHF, last echo 12/2016 shows EF 30-35% Chest xray reviewed and shows moderate CHF -on IV lasix, switch to po -Cardiology evaluated the patient, appreciate input. -on Entresto Acute Respiratory failure, 84% on rm air, patient uses O2 at HS -keep on oxygen as needed to keep O2 sat >90%. Pt uses oxygen chronically. Afib, chronic, with pacemaker placement -on amiodarone 400 mg daily -Reviewed TELE, no new events. hypokalemia; replaced. Supratherapeutic INR, no active bleeding -continue to hold Coumadin for now. INR today was 5.3. -Recheck INR in AM. HTN, chronic - cardizem, lopressor, amiodarone, entresto Hypothyroidism, chronic -on Synthroid DVT prophylaxis: SCDs, hold Coumadin due to supratherapeutic INR consulted PT. Discharge Planning anticipate d/c to SNF tomorrow. Pt will need daily INR checks while at SNF, consider resuming coumadin 2mg po QOD once INR <3 Vanessa Conroy MD Mar 08, 2017 10:33
[2017-03-08] MEDS: ACETAMINOPHEN 325 MG TAB PO PRN (17:08)
[2017-03-08] MEDS: FUROSEMIDE 20 MG TAB PO SCH (17:11)
[2017-03-09] VITALS (26 sets, daily range): BP systolic 94–121; BP diastolic 46–64; PULSE 62–82; RESP 16–19; TEMP 97.7–98.4; O2SAT 94–98
[2017-03-09 05:09] LABS: INTERNATIONAL NORMALIZED RATIO 4.3 RATIO; PROTHROMBIN TIME - PATIENT 50.2 SEC (9.8-11.6)
[2017-03-09 05:22] LABS: BICARBONATE 26.7 MEQ/L (21.0-32.0); POTASSIUM 4.4 MEQ/L (3.5-5.1)
[2017-03-09] MEDS: LEVOTHYROXINE SODIUM 50 MCG TAB PO SCH (06:00)
[2017-03-09] MEDS: FUROSEMIDE 20 MG TAB PO SCH ×2 (09:00→18:07)
[2017-03-09] MEDS: AMIODARONE 200 MG TAB PO SCH (09:00)
[2017-03-09] MEDS: POTASSIUM CHLORIDE 20 MEQ CONTROLLED RELEASE TAB PO SCH (09:00)
[2017-03-09] MEDS: DILTIAZEM-CD 240 MG CAP ER PO SCH (09:00)
[2017-03-09] MEDS: PANTOPRAZOLE SOD 40 MG DELAYED RELEASE TAB PO SCH (09:00)
[2017-03-09] MEDS: SODIUM CHLORIDE 0.9% FLUSH 10 ML FLUSH IV FLUSH SCH ×2 (09:00→21:00)
[2017-03-09] MEDS: METOPROLOL TARTRATE 100 MG TAB PO SCH ×2 (09:00→22:00)
--- NOTE | 2017-03-09 13:11 | HHI.PR ---
Subjective Remarks Pt states she feels well. denies any prior hx of kidney failure. Denies any CP/ SOB/N/V Objective Vitals Vital Signs Date Time Temp Pulse Resp B/P (MAP) Pulse Ox O2 Delivery O2 Flow Rate FiO2 03/09/17 06:00 66 03/09/17 05:00 65 03/09/17 04:00 64 03/09/17 04:00 68 18 100/46 (64) 98 03/09/17 03:00 66 03/09/17 02:00 77 03/09/17 01:00 66 03/09/17 00:00 62 18 94/47 (63) 98 03/09/17 00:00 65 03/08/17 23:00 65 03/08/17 22:10 Nasal Cannula 2.00 03/08/17 22:00 64 03/08/17 21:00 64 03/08/17 20:00 70 03/08/17 20:00 97.9 78 18 107/51 (69) 98 03/08/17 19:00 74 03/08/17 18:00 75 03/08/17 17:00 69 03/08/17 16:00 79 03/08/17 15:00 98.6 71 18 103/63 (76) 98 03/08/17 15:00 64 03/08/17 14:00 63 I/O 03/08/17 03/08/17 03/08/17 03/09/17 03/09/17 03/09/17 07:00 15:00 23:00 07:00 15:00 23:00 Intake Total 240 ml 600 ml 120 ml Output Total 650 ml 600 ml 300 ml Balance -410 ml 0 ml -180 ml Intake Oral 240 ml 600 ml 120 ml Output Urine Total 650 ml 600 ml 300 ml # Bowel Movements 1 Result Diagram: 03/05/17 0520 03/09/17 0423 Imaging Last Impressions Chest X-Ray 03/04/17 1628 Signed Impressions: Service Date/Time: Saturday, March 04, 2017 16:31 - CONCLUSION: Moderate CHF. Stable compared to previous. Sam Chacon MD Objective Remarks GENERAL: elderly female, laying in bed, appears comfortable. EYES: EOMI CARDIOVASCULAR: Regular rate and regular rhythm without murmurs. RESPIRATORY: clear to auscultation this morning, no wheezing or crackles. GASTROINTESTINAL: Abdomen soft, non-tender, nondistended. MUSCULOSKELETAL: Extremities with trace edema. NEURO: Alert & Oriented. Moves all ext x4. answers questions appropriately. Procedures none Date of Insertion: Mar 04, 2017 Date of Removal: Mar 06, 2017 A/P Problem List: (1) Acute exacerbation of CHF (congestive heart failure) ICD Code: I50.9 - Heart failure, unspecified Status: Acute (2) Acute respiratory failure ICD Code: J96.00 - Acute respiratory failure, unspecified whether with hypoxia or hypercapnia Status: Acute (3) Supratherapeutic INR ICD Code: R79.1 - Abnormal coagulation profile Status: Acute (4) HTN (hypertension) ICD Code: I10 - Essential (primary) hypertension Status: Chronic (5) Hypothyroidism ICD Code: E03.9 - Hypothyroidism Status: Acute Assessment and Plan Acute on chronic systolic CHF, last echo 12/2016 shows EF 30-35% Chest xray reviewed and shows moderate CHF -on po lasix -Cardiology evaluated the patient, appreciate input. -on Entresto however due to worsening kidney function, will hold for now. Acute Respiratory failure, 84% on rm air, patient uses O2 at HS -keep on oxygen as needed to keep O2 sat >90%. Pt uses oxygen chronically. Afib, chronic, with pacemaker placement -on amiodarone 400 mg daily - stable hypokalemia; replaced. Supratherapeutic INR, no active bleeding -continue to hold Coumadin for now. INR today was 4.3. -Recheck INR in AM. - continue to hold coumadin HTN, chronic - cardizem, lopressor, amiodarone, hold entresto Hypothyroidism, chronic -on Synthroid DVT prophylaxis: SCDs, hold Coumadin due to supratherapeutic INR PT following. appreciate input. Discharge Planning anticipate d/c to SNF tomorrow if renal function improves. Nephrology consult placed. Appreciate assistance. Pt will need daily INR checks while at SNF, consider resuming coumadin 2mg po QOD once INR <3 Vanessa Conroy MD Mar 09, 2017 13:11
[2017-03-10] VITALS (25 sets, daily range): BP systolic 102–128; BP diastolic 59–64; PULSE 62–93; RESP 20; TEMP 97.4–98.2; O2SAT 92–95
[2017-03-10] MEDS ORDERED: ONDANSETRON HCL 4 MG/2 ML VIAL IV PUSH PRN
[2017-03-10] MEDS ORDERED: METOCLOPRAMIDE HCL 10 MG/2 ML VIAL IV PUSH ONE
[2017-03-10] MEDS: LEVOTHYROXINE SODIUM 50 MCG TAB PO SCH (05:31)
--- NOTE | 2017-03-10 06:10 | MB ---
cc: DIONE UMANZOR MD DATE OF CONSULTATION REASON FOR CONSULTATION Acute renal failure management. HISTORY OF PRESENT ILLNESS This is an 86-year-old female with history of CHF, COPD on home oxygen as well as a pacemaker. The patient has apparent CKD Stage III and is followed up with Dr. Schuler's office and has seeing Arlene Cortes apparently several times. She also has a history of hypothyroidism as well as atrial fibrillation on Coumadin and hypertension. The patient presented to the emergency room on March 04 with complaints of dyspnea and increased lower extremity edema. She was assessed with CHF exacerbation. The patient has had several previous admissions and was last here in December with CHF exacerbation. She was initiated on Lasix IV treatment. At home she had been taking her Lasix every other night. Here where she was started with Lasix 20 IV b.i.d., her symptoms improved and she had diuresis with 1.3 liters her first day here and has been negative approximately 2.5 liters since her admission here. She reports her shortness of breath symptoms have significantly improved. In addition, the patient had been on outpatient treatment with Entresto. This was continued until yesterday when she had a rising creatinine. Her creatinine was initially 1.1 at the time of admission which was near her baseline. This gradually improved, elevated to a level of 1.69. With elevation of creatinine her Entresto was stopped and Nephrology was consulted for further evaluation. At this time she is resting comfortably in bed and has no acute complaints. She did have a supratherapeutic INR of 9 due to her Coumadin. Her Coumadin has been held and her INR continues to trend. The last level was a 4.3. She has some hypokalemia which was initially replaced and she continues on amiodarone for atrial fibrillation as well as Synthroid for hypothyroidism. REVIEW OF SYSTEMS The patient denies any chest pains at this time. She reports some ongoing fullness in her abdomen. She reports she has this with fluid overload in the past. She reports her lower extremity edema is improving. No fevers, no chills. No nausea, no vomiting, no diarrhea, no constipation. No dysuria. No chest pains. Otherwise review of systems is negative. PAST MEDICAL HISTORY 1. CHF. Echo in December of 2016 with 30-35% EF. 2. History of pacemaker. 3. Hypothyroidism. 4. Atrial fibrillation on Coumadin. 5. Hypertension. 6. COPD on home oxygen. 7. CKD Stage III followed up with Dr. Schuler's office. PAST SURGICAL HISTORY 1. Bladder mesh. 2. Cataract surgery. 3. Pacemaker. MEDICATIONS AT HOME 1. Lasix 20 mg every other day. 2. Home oxygen. 3. Guaifenesin. 4. Cardizem. 5. Amiodarone. 6. Combivent. 7. Synthroid. 8. Metoprolol. 9. Coumadin. 10. Protonix. ALLERGIES No known drug allergies. FAMILY HISTORY Sister with diabetes. Father with Hodgkin's lymphoma. Mother with atrial fibrillation. Sister with TIA. SOCIAL HISTORY Secondhand tobacco exposure. No alcohol or drug use. PHYSICAL EXAMINATION VITAL SIGNS: At the time of evaluation temperature 98.2, pulse 75, respiratory rate 16, blood pressure 104/60, pulse ox 96% on room air. GENERAL: Awake, alert, oriented, in no apparent distress. HEENT/NECK: Soft, supple. CARDIAC: Regular rate and rhythm. PULMONARY: Lungs clear to auscultation. Decreased breath sounds at bases. ABDOMEN: Soft, nontender, nondistended. EXTREMITIES: Trace edema. LABORATORY FINDINGS Sodium 136, potassium 4.4, chloride 100, bicarb 26.7, BUN 27, creatinine 1.69, glucose of 89. Urinalysis with trace protein, otherwise negative. White count 7.7, hemoglobin 9.8, hematocrit 29.4 with platelet count of 220; this is from March 05. ASSESSMENT AND PLAN 1. Acute kidney injury on CKD Stage III. The baseline creatinine for the patient appears to be near 1.1. This corresponds to approximately CKD Stage III. She has been followed up as an outpatient with Dr. Schuler's office in the past. Her creatinine has risen up to a level of 1.69 currently. I believe is primarily due to diuresis with some mild decrease in her systolic blood pressures. When she presented here, she had a systolic blood pressure in the 150s to 160s. This has been reduced down to a systolic blood pressure in the 90s to 100s. This relative hypoperfusion in the setting of diuresis may have contributed to some elevation in her creatinine function. She had a similar elevation in her creatinine previously in December which self-resolved. At this point her IV diuretics have been switched over to p.o. and she is currently on Lasix 20 mg p.o. b.i.d. Her CHF symptoms appear to be stable and she seems to be improving clinically. At this point continue with current management and continue to monitor. In addition, the patient had been on Entresto earlier which was held yesterday. This is a medication containing an ARB and hold all MIHAI inhibitors and ARB given acute renal failure. Continue to monitor at this time. Continue with p.o. Lasix and continue management of CHF. We will continue to monitor closely at this point. 2. CHF. The patient has an ejection fraction of 30%. Continue with medical management. She has had good diuresis since here and is feeling somewhat better. Continue to monitor clinically and continue p.o. diuretics. 3. Hypertension. The patient had initial systolic blood pressures in the 150s to 160s; this decreased to the 100s now. Continue to monitor closely. Hold MIHAI inhibitors and ARB. 4. Coagulopathy. The patient was supratherapeutic with her INR of 9. This was reduced down to a level of 4.3 today and her Coumadin has been held. At this point her hemoglobin is relatively stable with a hemoglobin of 9.8. Continue to monitor. 5. Hypothyroidism. Continue with Synthroid. MD EMANUEL Gonzalez/BLAS /8:34 PM /5:46 AM PEDRITO
[2017-03-10 06:50] LABS: INTERNATIONAL NORMALIZED RATIO 2.9 RATIO; PROTHROMBIN TIME - PATIENT 33.9 SEC (9.8-11.6)
[2017-03-10 06:53] LABS: ANION GAP 9 MEQ/L (5-15); AST (GOT) 13 U/L (15-37); BICARBONATE 25.5 MEQ/L (21.0-32.0); BLOOD UREA NITROGEN 28 MG/DL (7-18); CHLORIDE 99 MEQ/L (98-107); GLOMERULAR FILTRATION RATE 30 ML/MIN (>89); MAGNESIUM 2.1 MG/DL (1.5-2.5); POTASSIUM 4.6 MEQ/L (3.5-5.1); SODIUM (NA) 133 MEQ/L (136-145)
[2017-03-10 06:54] LABS: ALT (GPT) 15 U/L (10-53)
[2017-03-10 06:57] LABS: ALKALINE PHOSPHATASE 36 U/L (45-117); TOTAL BILIRUBIN ADULT 0.4 MG/DL (0.2-1.0)
[2017-03-10 07:09] LABS: AUTOMATED NEUTROPHIL # 4.8 TH/MM3 (1.8-7.7); BASOPHIL % 0.4 % (0.0-2.0); EOSINOPHIL # 0.2 TH/MM3 (0-0.4); EOSINOPHIL % 2.9 % (0.0-4.0); HEMATOCRIT 28.4 % (35.0-46.0); HEMO FLAGS DIFF FINAL; LYMPH % 20.1 % (9.0-44.0); LYMPHOCYTE # 1.4 TH/MM3 (1.0-4.8); MEAN CELL VOLUME 82.4 FL (80.0-100.0); MEAN CORPUSCULAR HEMOGLOBIN 26.7 PG (27.0-34.0); MEAN CORPUSCULAR HGB CONC 32.4 % (32.0-36.0); MONO % 8.2 % (0.0-8.0); NEUT % 68.4 % (16.0-70.0); PLATELET COUNT 241 TH/MM3 (150-450); RED BLOOD COUNT 3.45 MIL/MM3 (4.00-5.30); RED CELL DISTRIBUTION WIDTH 16.3 % (11.6-17.2); WHITE BLOOD COUNT 7.1 TH/MM3 (4.0-11.0)
--- NOTE | 2017-03-10 07:40 | PD.CARD.PN ---
Subjective Subjective Remarks Dyspnea overall better. Complains of epigastric fullness most of day yesterday , brief episode of near syncope. No N/V. No CP, constipation, palpitations. Objective Medications Item Value Date Time Furosemide 20 mg 03/08/17 1800 (Lasix) BID@09,18/PO 03/09/17 1807 Diltiazem HCl 240 mg 03/05/17 0900 (Cardizem Cd) DAILY/PO 03/09/17 0900 Metoprolol 100 mg 03/05/17 0900 Tartrate BID/PO 03/09/17 2200 (Lopressor) Amiodarone HCl 400 mg 03/05/17 0900 (Cordarone) DAILY/PO 03/09/17 0900 Potassium Chloride 20 meq 03/05/17 0900 (KCl) DAILY/PO 03/09/17 0900 Vital Signs / I&O Vital Signs Date Time Temp Pulse Resp B/P (MAP) Pulse Ox O2 Delivery O2 Flow Rate FiO2 03/10/17 06:00 64 03/10/17 05:00 63 03/10/17 04:00 63 03/10/17 04:00 64 03/10/17 03:00 97.9 93 20 106/59 (75) 92 03/10/17 03:00 69 03/10/17 03:00 78 03/10/17 02:00 62 03/10/17 01:00 64 03/10/17 00:00 78 03/09/17 23:00 98.4 82 18 121/64 (83) 94 03/09/17 23:00 64 03/09/17 22:00 70 03/09/17 21:00 62 03/09/17 20:00 70 03/09/17 19:00 98.2 75 16 104/60 (75) 96 03/09/17 19:00 64 03/09/17 18:00 64 03/09/17 17:00 64 03/09/17 16:00 64 03/09/17 15:00 66 03/09/17 15:00 98.1 69 19 98/53 (68) 94 03/09/17 14:00 68 03/09/17 13:00 62 03/09/17 12:00 72 03/09/17 11:00 66 03/09/17 11:00 97.7 66 16 107/51 (69) 98 03/09/17 10:00 62 03/09/17 09:00 72 03/09/17 08:00 64 03/09/17 07:49 96 Nasal Cannula 2.00 03/09/17 07:45 98.0 65 18 121/63 (82) 95 I/O 03/09/17 03/09/17 03/09/17 03/10/17 03/10/17 03/10/17 07:00 15:00 23:00 07:00 15:00 23:00 Intake Total 120 ml 240 ml Output Total 300 ml 350 ml Balance -180 ml -110 ml Intake Oral 120 ml 240 ml Output Urine Total 300 ml 350 ml Physical Exam GENERAL: Well developed, well nourished. No acute distress. HEENT: Jugular venous pressure is normal. CHEST: Diminished breath sounds bases. CARDIAC: Regular rate and rhythm without S3, S4, or murmur. ABDOMEN: Soft, nontender, no hepatosplenomegaly. Bowel sounds present. EXTREMITIES: No clubbing, cyanosis, or edema. Laboratory Laboratory Tests Test 03/10/17 05:18 White Blood Count 7.1 TH/MM3 Red Blood Count 3.45 MIL/MM3 Hemoglobin 9.2 GM/DL Hematocrit 28.4 % Mean Corpuscular Volume 82.4 FL Mean Corpuscular Hemoglobin 26.7 PG Mean Corpuscular Hemoglobin Concent 32.4 % Red Cell Distribution Width 16.3 % Platelet Count 241 TH/MM3 Mean Platelet Volume 8.9 FL Neutrophils (%) (Auto) 68.4 % Lymphocytes (%) (Auto) 20.1 % Monocytes (%) (Auto) 8.2 % Eosinophils (%) (Auto) 2.9 % Basophils (%) (Auto) 0.4 % Neutrophils # (Auto) 4.8 TH/MM3 Lymphocytes # (Auto) 1.4 TH/MM3 Monocytes # (Auto) 0.6 TH/MM3 Eosinophils # (Auto) 0.2 TH/MM3 Basophils # (Auto) 0.0 TH/MM3 CBC Comment DIFF FINAL Differential Comment Prothrombin Time 33.9 SEC Prothromb Time International Ratio 2.9 RATIO Blood Urea Nitrogen 28 MG/DL Creatinine 1.64 MG/DL Random Glucose 97 MG/DL Total Protein 6.7 GM/DL Albumin 2.7 GM/DL Calcium Level 7.9 MG/DL Phosphorus Level 3.7 MG/DL Magnesium Level 2.1 MG/DL Alkaline Phosphatase 36 U/L Aspartate Amino Transf (AST/SGOT) 13 U/L Alanine Aminotransferase (ALT/SGPT) 15 U/L Total Bilirubin 0.4 MG/DL Sodium Level 133 MEQ/L Potassium Level 4.6 MEQ/L Chloride Level 99 MEQ/L Carbon Dioxide Level 25.5 MEQ/L Anion Gap 9 MEQ/L Estimat Glomerular Filtration Rate 30 ML/MIN Assessment and Plan Problem List: (1) CHF (congestive heart failure) ICD Codes: I50.9 - Congestive heart failure Status: Acute Plan: Overall clinically improved. Good diuresis since admission. Rise in renal indices noted, agree with stopping Entresto. Continue other CHF regimen. (2) Paroxysmal a-fib ICD Codes: I48.0 - Paroxysmal a-fib Status: Chronic Plan: Overall stable on Amiodarone. Continue to monitor. (3) Nonsustained ventricular tachycardia ICD Codes: I47.2 - Ventricular tachycardia Status: Acute Plan: Overall stable on Amiodarone. Continue to monitor. Episode of near syncope yesterday, apparently no associated arrhythmias noted on monitoring. May have had vasovagal mediated event. (4) HTN (hypertension) ICD Codes: I10 - Essential (primary) hypertension Status: Chronic Plan: Remains normotensive. Continue to monitor. (5) History of cardiac pacemaker ICD Codes: Z95.0 - Presence of cardiac pacemaker Status: Chronic Code Status full code Discussed Condition With patient Problem Qualifiers (1) CHF (congestive heart failure): Qualified Codes: I50.23 - Acute on chronic systolic (congestive) heart failure (2) HTN (hypertension): Qualified Codes: I10 - Essential (primary) hypertension Demetris Jansen MD Mar 10, 2017 07:40
[2017-03-10] MEDS: FUROSEMIDE 20 MG TAB PO SCH ×2 (09:03→17:11)
[2017-03-10] MEDS: DILTIAZEM-CD 240 MG CAP ER PO SCH (09:03)
[2017-03-10] MEDS: METOPROLOL TARTRATE 100 MG TAB PO SCH ×2 (09:03→22:02)
[2017-03-10] MEDS: POTASSIUM CHLORIDE 20 MEQ CONTROLLED RELEASE TAB PO SCH (09:03)
[2017-03-10] MEDS: SODIUM CHLORIDE 0.9% FLUSH 10 ML FLUSH IV FLUSH SCH ×2 (09:04→22:02)
[2017-03-10] MEDS: PANTOPRAZOLE SOD 40 MG DELAYED RELEASE TAB PO SCH (09:04)
[2017-03-10] MEDS: AMIODARONE 200 MG TAB PO SCH (09:04)
--- NOTE | 2017-03-10 11:23 | HHI.NPPN ---
Subjective Renal Failure: Chronic, Acute, Stage III Interval History Edema and breathing are improved. Renal function is stable. (Arlene Cortes) Review of Systems Respiratory Lungs: SOB (Arlene Cortes) Cardiovascular Cardiac: Edema (Arlene Cortes) Objective Data Data Vital Signs Date Time Temp Pulse Resp B/P (MAP) Pulse Ox O2 Delivery O2 Flow Rate FiO2 03/10/17 09:27 92 03/10/17 08:00 98.2 65 20 128/62 (84) 95 03/10/17 06:00 64 03/10/17 05:00 63 03/10/17 04:00 63 03/10/17 04:00 64 03/10/17 03:00 97.9 93 20 106/59 (75) 92 03/10/17 03:00 69 03/10/17 03:00 78 03/10/17 02:00 62 03/10/17 01:00 64 03/10/17 00:00 78 03/09/17 23:00 98.4 82 18 121/64 (83) 94 03/09/17 23:00 64 03/09/17 22:00 70 03/09/17 21:00 62 03/09/17 20:00 70 03/09/17 19:00 98.2 75 16 104/60 (75) 96 03/09/17 19:00 64 03/09/17 18:00 64 03/09/17 17:00 64 03/09/17 16:00 64 03/09/17 15:00 66 03/09/17 15:00 98.1 69 19 98/53 (68) 94 03/09/17 14:00 68 03/09/17 13:00 62 03/09/17 12:00 72 (Arlene Cortes) -: 03/10/17 0518 03/10/17 0518 Physical Exam General Appearance: Well Developed, Well Nourished, Comfortable (Arlene Cortes) Eyes Eye Exam: Pupils Equal (Arlene Cortes) Pulmonary Resp Exam: Clear Bilaterally, Breath Sounds Equal, No Distress (Arlene Cortes) Cardiology CV Exam: Regular, Normal Sinus Rhythm (Arlene Cortes) Gastrointestinal/Abdomen GI Exam: Soft, Non-Tender (Arlene Cortes) Musculoskeletal MS Exam: Normal Gait, Normal Tone (Arlene Cortes) Integumentary Skin Exam: Warm, Dry (Arlene Cortes) Extremeties Extremities Exam: No Edema, Pedal Pulses Palpable (Arlene Cortes) Neurologic Neuro Exam: Alert, Awake, Oriented, Speech Clear, Moving All Extremities (Arlene Cortes) Psychiatric Psych Exam: Appropriate Responses (Arlene Cortes) Assessment/Plan Discussed Condition With: Patient Problem List: (1) Acute kidney injury ICD Codes: N17.9 - Acute kidney failure, unspecified Status: Acute Plan: he has a hx of CKD 3 KYRIE may be due CHF exacerbation and decreased renal perfusion, also use of Entresto, which has been held renal function is stable fluid status has improved continue current plan, she is on Bumex PO BID follow urine output (2) Shortness of breath ICD Codes: R06.02 - Shortness of breath Status: Acute Plan: continue diuresis with Bumex, follow urine output, I/O, daily weights on oxygen therapy Hx CHF, EF 30% cardiology following (Arlene Cortes) Plan patient was seen and examined. Renal function is stable. Agree with above assessment and plan. (Jose Manuel Schuler MD) Arlene Cortes Mar 10, 2017 11:23 Jose Manuel Schuler MD Mar 11, 2017 11:03
--- NOTE | 2017-03-10 11:34 | HHI.PR ---
Subjective Remarks Pt states that she feels like food is sitting on her stomach, not nauseous at this time. This makes her feels sob. no chest pains. apparently last night, bathroom in room wasn't working properly and she had to walk a few doors down to go to another bathroom and she felt very weak, nauseous and felt like she was going to pass out Objective Vitals Vital Signs Date Time Temp Pulse Resp B/P (MAP) Pulse Ox O2 Delivery O2 Flow Rate FiO2 03/10/17 09:27 92 03/10/17 08:00 98.2 65 20 128/62 (84) 95 03/10/17 06:00 64 03/10/17 05:00 63 03/10/17 04:00 63 03/10/17 04:00 64 03/10/17 03:00 97.9 93 20 106/59 (75) 92 03/10/17 03:00 69 03/10/17 03:00 78 03/10/17 02:00 62 03/10/17 01:00 64 03/10/17 00:00 78 03/09/17 23:00 98.4 82 18 121/64 (83) 94 03/09/17 23:00 64 03/09/17 22:00 70 03/09/17 21:00 62 03/09/17 20:00 70 03/09/17 19:00 98.2 75 16 104/60 (75) 96 03/09/17 19:00 64 03/09/17 18:00 64 03/09/17 17:00 64 03/09/17 16:00 64 03/09/17 15:00 66 03/09/17 15:00 98.1 69 19 98/53 (68) 94 03/09/17 14:00 68 03/09/17 13:00 62 03/09/17 12:00 72 I/O 03/09/17 03/09/17 03/09/17 03/10/17 03/10/17 03/10/17 07:00 15:00 23:00 07:00 15:00 23:00 Intake Total 120 ml 240 ml Output Total 300 ml 350 ml Balance -180 ml -110 ml Intake Oral 120 ml 240 ml Output Urine Total 300 ml 350 ml Result Diagram: 03/10/1751703/10/17517 Imaging Last Impressions Chest X-Ray 03/04/17 1628 Signed Impressions: Service Date/Time: Saturday, March 04, 2017 16:31 - CONCLUSION: Moderate CHF. Stable compared to previous. Sam Chacon MD Objective Remarks GENERAL: elderly female, laying in bed, appears a bit uncomfortable. EYES: EOMI CARDIOVASCULAR: Regular rate and regular rhythm without murmurs. RESPIRATORY: clear to auscultation this morning, no wheezing or crackles. GASTROINTESTINAL: Abdomen soft, non-tender, nondistended. MUSCULOSKELETAL: Extremities with trace edema. NEURO: Alert & Oriented. Moves all ext x4. answers questions appropriately. Procedures none Date of Insertion: Mar 04, 2017 Date of Removal: Mar 06, 2017 A/P Problem List: (1) Acute exacerbation of CHF (congestive heart failure) ICD Code: I50.9 - Heart failure, unspecified Status: Acute (2) Acute respiratory failure ICD Code: J96.00 - Acute respiratory failure, unspecified whether with hypoxia or hypercapnia Status: Acute (3) Supratherapeutic INR ICD Code: R79.1 - Abnormal coagulation profile Status: Acute (4) HTN (hypertension) ICD Code: I10 - Essential (primary) hypertension Status: Chronic (5) Hypothyroidism ICD Code: E03.9 - Hypothyroidism Status: Acute Assessment and Plan Acute on chronic systolic CHF, last echo 12/2016 shows EF 30-35% Chest xray reviewed and shows moderate CHF -on po lasix -Cardiology evaluated the patient, appreciate input. -Entresto held due to worsening kidney function Acute Respiratory failure, 84% on rm air, patient uses O2 at HS -keep on oxygen as needed to keep O2 sat >90%. Pt uses oxygen chronically. Acute on chronic renal failure. nephrology following, hold entresto. monitor Cr closely. avoid IVFs due to CHF. Afib, chronic, with pacemaker placement -on amiodarone 400 mg daily - stable hypokalemia; replaced. Supratherapeutic INR, no active bleeding -continue to hold Coumadin for now. INR today was 2.9 -Recheck INR in AM. -resumed coumadin HTN, chronic - cardizem, lopressor, amiodarone, hold entresto Hypothyroidism, chronic -on Synthroid DVT prophylaxis: SCDs, resume coumadin at 1mg po daily. Pharmacy to assist w dosing PT following. appreciate input. Discharge Planning anticipate d/c to SNF once renal function back to baseline. appreciate input for all consultants. Pt will need daily INR checks while at SNF, on coumadin 1mg po QD and monitor INRs Problem Qualifiers (1) HTN (hypertension): Qualified Codes: I10 - Essential (primary) hypertension Vanessa Conroy MD Mar 10, 2017 11:34
--- NOTE | 2017-03-10 12:30 | RADRPT ---
EXAM DATE/TIME: 03/10/2017 12:11 [facility] COMPARISON: CHEST SINGLE AP, March 04, 2017, 16:31. INDICATIONS : Short of breath. MEDICAL HISTORY : Congestive heart failure. SURGICAL HISTORY : Pacemaker. ENCOUNTER: Initial ACUITY: 1 day PAIN SCORE: 0/10 LOCATION: Bilateral chest FINDINGS: A single view of the chest demonstrates cardiomegaly with bibasilar densities and small pleural effus ions. Left-sided pacemaker with 2 intact leads. Increase in pulmonary vascularity. Osseous structures are intact. CONCLUSION: 1. Bibasilar densities. 2. Cardiomegaly with small bilateral pleural effusions. 3. No significant change. Martín Oquendo MD on March 10, 2017 at 12:28 Board Certified Radiologist. This report was verified electronically.
[2017-03-10] MEDS: ACETAMINOPHEN 325 MG TAB PO PRN ×2 (15:44→22:04)
[2017-03-10] MEDS ORDERED: WARFARIN SOD 1 MG TAB PO SCH (16:00)
[2017-03-11] VITALS (17 sets, daily range): BP systolic 87–136; BP diastolic 52–66; PULSE 63–80; RESP 20–22; TEMP 97.6–97.8; O2SAT 94–97
[2017-03-11] MEDS: LEVOTHYROXINE SODIUM 50 MCG TAB PO SCH (05:19)
[2017-03-11 06:59] LABS: INTERNATIONAL NORMALIZED RATIO 2.4 RATIO
[2017-03-11 07:28] LABS: BICARBONATE 25.5 MEQ/L (21.0-32.0); POTASSIUM 4.7 MEQ/L (3.5-5.1)
[2017-03-11] MEDS: DILTIAZEM-CD 240 MG CAP ER PO SCH (08:48)
[2017-03-11] MEDS: POTASSIUM CHLORIDE 20 MEQ CONTROLLED RELEASE TAB PO SCH (08:48)
[2017-03-11] MEDS: AMIODARONE 200 MG TAB PO SCH (08:48)
[2017-03-11] MEDS: PANTOPRAZOLE SOD 40 MG DELAYED RELEASE TAB PO SCH (08:48)
[2017-03-11] MEDS: SODIUM CHLORIDE 0.9% FLUSH 10 ML FLUSH IV FLUSH SCH (08:49)
[2017-03-11] MEDS: FUROSEMIDE 20 MG TAB PO SCH (08:49)
[2017-03-11] MEDS: METOPROLOL TARTRATE 100 MG TAB PO SCH (08:49)
--- NOTE | 2017-03-11 09:54 | HHI.NPPN ---
Subjective Renal Failure: Chronic, Acute, Stage III Interval History She is reporting nausea and feels something is stuck in her throat. Creatinine is worse today. (Arlene Cortes) Review of Systems Respiratory Lungs: SOB (Arlene Cortes) Gastrointestinal Gastrointestinal: Nausea & Vomiting GI Remarks no vomiting (Arlene Cortes) Objective Data Data Vital Signs Date Time Temp Pulse Resp B/P (MAP) Pulse Ox O2 Delivery O2 Flow Rate FiO2 03/11/17 09:00 64 03/11/17 08:00 64 03/11/17 07:15 97.7 65 22 136/62 (86) 94 03/11/17 07:15 63 03/11/17 07:15 94 Nasal Cannula 2.00 03/11/17 06:00 77 03/11/17 05:00 69 03/11/17 04:00 64 03/11/17 03:00 80 03/11/17 03:00 97.8 80 20 115/64 (81) 96 03/11/17 02:00 66 03/11/17 01:00 69 03/11/17 00:00 66 03/10/17 23:00 63 03/10/17 23:00 98.0 66 20 120/64 (82) 95 03/10/17 22:00 62 03/10/17 21:00 81 03/10/17 20:00 97.7 64 20 116/62 (80) 94 03/10/17 20:00 65 03/10/17 19:48 Nasal Cannula 3.00 03/10/17 19:00 64 03/10/17 18:00 66 03/10/17 17:00 64 03/10/17 16:49 18 03/10/17 16:00 97.4 63 20 102/59 (73) 94 03/10/17 16:00 66 03/10/17 15:00 65 03/10/17 14:00 64 03/10/17 13:00 64 03/10/17 12:00 66 03/10/17 12:00 97.4 64 20 113/60 (77) 94 03/10/17 11:00 63 03/10/17 10:00 66 (Arlene Cortes) -: 03/10/17 0518 03/11/17 0540 Imaging Last Impressions Chest X-Ray 03/04/17 1628 Signed Impressions: Service Date/Time: Saturday, March 04, 2017 16:31 - CONCLUSION: Moderate CHF. Stable compared to previous. Sam Chacon MD (Arlene Cortes. THOMAS) Physical Exam General Appearance: Well Developed, Well Nourished, Comfortable Appearance Remarks appears fatigued (Arlene Cortes B. PUBLIC FINANCE SPECIALIST) Eyes Eye Exam: Pupils Equal (Arlene Cortes B. PUBLIC FINANCE SPECIALIST) Pulmonary Resp Exam: Clear Bilaterally, Breath Sounds Equal, No Distress, Decreased Bases (Arlene Cortes B. PUBLIC FINANCE SPECIALIST) Cardiology CV Exam: Regular, Normal Sinus Rhythm (Arlene Cortes B. PUBLIC FINANCE SPECIALIST) Gastrointestinal/Abdomen GI Exam: Soft, Non-Tender, Bowel Sounds Present (Arlene Cortes B. PUBLIC FINANCE SPECIALIST) Musculoskeletal MS Exam: Normal Gait, Normal Tone (Arlene Cortes B. PUBLIC FINANCE SPECIALIST) Integumentary Skin Exam: Clear, Warm, Dry, Intact (Arlene Cortes B. PUBLIC FINANCE SPECIALIST) Extremeties Extremities Exam: No Edema, Pedal Pulses Palpable (Arlene Cortes B. PUBLIC FINANCE SPECIALIST) Neurologic Neuro Exam: Alert, Awake, Oriented, Speech Clear, Moving All Extremities (Arlene Cortes B. PUBLIC FINANCE SPECIALIST) Psychiatric Psych Exam: Appropriate Responses (Arlene Cortes) Assessment/Plan Discussed Condition With: Patient Assessment Summary: KYRIE/Acute Renal Failure, Anemia of CKD, Fluid/Volume Overload, Hypertension, Hypotension, CKD Stage III Problem List: (1) Acute kidney injury ICD Codes: N17.9 - Acute kidney failure, unspecified Status: Acute Plan: he has a hx of CKD 3, baseline creatinine 1.1 KYRIE may be due CHF exacerbation and decreased renal perfusion, also use of Entresto, which has been held she has also had several episodes of hypotension since arrival which may explain the more recent worsening renal function fluid status has improved potassium was replaced follow urine output avoid nephrotoxic agents, obtain daily renal panel avoid IVF (2) Shortness of breath ICD Codes: R06.02 - Shortness of breath Status: Acute Plan: symptoms consistent with suspected CHF exacerbation; Hx CHF, EF 30% continue diuresis with Bumex, follow urine output, I/O, daily weights on oxygen therapy cardiology following chest xray reviewed (3) Atrial fibrillation ICD Codes: I48.91 - Atrial fibrillation Status: Chronic Plan: rate controlled, on Coumadin for anticoagulation INR has normalized continue Cardizem and Lopressor (Arlene Cortes) Plan patient was seen and examined. Agree with above assessment and plan. (Jose Manuel Schuler MD) Arlene Cortes Mar 11, 2017 09:54 Jose Manuel Schuler MD Mar 11, 2017 16:11
[2017-03-11] MEDS ORDERED: PIPERACIL-TAZO 4.5 GM PREMIX 100 ML IV SCH (10:15)
--- NOTE | 2017-03-11 10:16 | HHI.PR ---
Subjective Remarks Pt not feeling well. Feeling nauseous, states that she feels like food is stuck in her stomach and this is really bothering her and is making her uncomfortable. Notes that she is still SOB and has increased cough but dry. Feels weak and tired. Discussed w RN Objective Vitals Vital Signs Date Time Temp Pulse Resp B/P (MAP) Pulse Ox O2 Delivery O2 Flow Rate FiO2 03/11/17 09:00 64 03/11/17 08:00 64 03/11/17 07:15 97.7 65 22 136/62 (86) 94 03/11/17 07:15 63 03/11/17 07:15 94 Nasal Cannula 2.00 03/11/17 06:00 77 03/11/17 05:00 69 03/11/17 04:00 64 03/11/17 03:00 80 03/11/17 03:00 97.8 80 20 115/64 (81) 96 03/11/17 02:00 66 03/11/17 01:00 69 03/11/17 00:00 66 03/10/17 23:00 63 03/10/17 23:00 98.0 66 20 120/64 (82) 95 03/10/17 22:00 62 03/10/17 21:00 81 03/10/17 20:00 97.7 64 20 116/62 (80) 94 03/10/17 20:00 65 03/10/17 19:48 Nasal Cannula 3.00 03/10/17 19:00 64 03/10/17 18:00 66 03/10/17 17:00 64 03/10/17 16:49 18 03/10/17 16:00 97.4 63 20 102/59 (73) 94 03/10/17 16:00 66 03/10/17 15:00 65 03/10/17 14:00 64 03/10/17 13:00 64 03/10/17 12:00 66 03/10/17 12:00 97.4 64 20 113/60 (77) 94 03/10/17 11:00 63 I/O 03/10/17 03/10/17 03/10/17 03/11/17 03/11/17 03/11/17 06:59 14:59 22:59 06:59 14:59 22:59 Intake Total 240 ml 240 ml Output Total 350 ml 380 ml Balance -110 ml -140 ml Intake Oral 240 ml 240 ml Output Urine Total 350 ml 380 ml # Bowel Movements 0 Result Diagram: 03/10/17 0518 03/11/17 0540 Imaging Last Impressions Chest X-Ray 03/04/17 1628 Signed Impressions: Service Date/Time: Saturday, March 04, 2017 16:31 - CONCLUSION: Moderate CHF. Stable compared to previous. Sam Chacon MD Objective Remarks GENERAL: elderly female, laying in bed, appears a bit uncomfortable and tired. EYES: EOMI CARDIOVASCULAR: Regular rate and regular rhythm without murmurs. RESPIRATORY: faint crackles on the right lung base. no wheezing. GASTROINTESTINAL: Abdomen soft, non-tender, nondistended. MUSCULOSKELETAL: Extremities with trace edema. NEURO: Alert & Oriented. Moves all ext x4. answers questions appropriately. Procedures none Date of Insertion: Mar 04, 2017 Date of Removal: Mar 06, 2017 A/P Problem List: (1) Acute exacerbation of CHF (congestive heart failure) ICD Code: I50.9 - Heart failure, unspecified Status: Acute (2) Acute respiratory failure ICD Code: J96.00 - Acute respiratory failure, unspecified whether with hypoxia or hypercapnia Status: Acute (3) Supratherapeutic INR ICD Code: R79.1 - Abnormal coagulation profile Status: Acute (4) HTN (hypertension) ICD Code: I10 - Essential (primary) hypertension Status: Chronic (5) Hypothyroidism ICD Code: E03.9 - Hypothyroidism Status: Acute Assessment and Plan Acute on chronic systolic CHF, last echo 12/2016 shows EF 30-35% Chest xray reviewed and shows moderate CHF -on po lasix -Cardiology evaluated the patient, appreciate input. -Entresto held due to worsening kidney function Acute Respiratory failure, 84% on rm air, patient uses O2 at HS -keep on oxygen as needed to keep O2 sat >90%. Pt uses oxygen chronically. Difficulty swallowing/sensation of food stuck in her lower esophagus/stomach: GI consult in place. Pt is very uncomfortable and feeling nauseous. Appreciate recs Acute on chronic renal failure. nephrology following, hold entresto. monitor Cr closely. avoid IVFs due to CHF. Afib, chronic, with pacemaker placement -on amiodarone 400 mg daily - stable hypokalemia; replaced. Supratherapeutic INR, no active bleeding -continue to hold Coumadin for now. INR today was 2.4 -Recheck INR in AM. -on coumadin 1 mg po daily. pharmacy assisting w dosing as well. appreciate assistance. HTN, chronic - cardizem, lopressor, amiodarone, hold entresto Hypothyroidism, chronic -on Synthroid DVT prophylaxis: SCDs, resume coumadin at 1mg po daily. Pharmacy to assist w dosing PT following. appreciate input. Discharge Planning anticipate d/c to SNF once renal function back to baseline. GI consult in place as pt having trouble w swallowing and having sensation of food stuck in lower esophagus/stomach. Pt will need daily INR checks while at SNF, on coumadin 1mg po QD Problem Qualifiers (1) HTN (hypertension): Qualified Codes: I10 - Essential (primary) hypertension Vanessa Conroy MD Mar 11, 2017 10:16
[2017-03-11] MEDS ORDERED: AZITHROMYCIN 250 MG TAB PO SCH (10:30)
[2017-03-11] MEDS ORDERED: PIPERACIL-TAZO 3.375 GM PREMIX 50 ML IV SCH (11:00)
--- NOTE | 2017-03-11 11:28 | PD.CONS ---
HPI History of Present Illness This is a 86 year old female who is currently in the [facility] unit being treated for acute exacerbation of congestive heart failure, acute respiratory failure, supratherapeutic INR, hypertension, and hypothyroidism. She reports that she is having difficulty swallowing with the sensation of food being stuck in her lower esophagus and stomach and therefore GI has been consulted for further evaluation. She reports that she did not have any difficulty swallowing prior to this hospitalization. A few days ago, she started having difficulty with both liquids and solids getting caught in her mid to lower esophagus. She denies having any coughing with liquids. She also has associated nausea without any vomiting. She denies any heartburn, reflux, abdominal pain. She does take protonix at home. She denies any history of esophageal strictures were dilatations in the past. She did have an EGD/Colonoscopy (07/10/11)-----> erythema, normal EGD otherwise. Moderate diverticulosis in the sigmoid colon, normal colon otherwise, small internal hemorrhoids. Of note, she is on Coumadin for atrial fibrillation and her INR was elevated on admission at 6.5. Her coumadin was held and her INR has trended down and is now 2.4. Her coumadin was restarted yesterday. (Randee Siegel) PFSH Past Medical History CHF, EF 30-35% Hypothyroidism Atrial fibrillation Hypertension COPD, home O2 use Chronic kidney disease Past Surgical History Bladder mesh Cataract surgery Pacemaker EGD Colonoscopy (Randee Siegel) Coded Allergies: No Known Allergies (Unverified , 02/09/17) Medications Allergies Coded Allergies Type Severity Reaction Last Updated Verified No Known Allergies 02/09/17 No Active Scripts Medications Dose Route/Sig Max Daily Dose Days Date Category Dose Instructions Entresto (Sacubitril-Valsartan) 24-26 Mg Tab 1 Tab PO BID 30 03/07/17 Rx Hydrocodone-Acetaminophen 5-325 mg Tab 1 Tab PO Q4H PRN 03/07/17 Rx Do not take this medicine if you will drive a car or use a machine, only use it when resting at home. Lasix (Furosemide) 20 Mg Tab 20 Mg PO DAILY 02/12/17 Rx Oxygen (O2) Device 2 Liter YRIS.CANULA CONTINUOUS 02/12/17 Rx Oxygen Concentrator Portable Gaseous 2 L/min via Nasal Canula Continuous For 99 months [Rulaesin ER] 600 MG Tabcr 600 Mg PO BID 01/23/17 Rx Acidophilus/l-Sporogenes (Lactobacillus Acidophilus) 1 Tab Tab 1 Tab PO TID 01/23/17 Rx Cardizem CD 24 HR (Diltiazem CD 24 HR) 240 Mg Caper 240 Mg PO DAILY 01/23/17 Rx Amiodarone (Amiodarone HCl) 200 Mg Tab 200 Mg PO DAILY 01/23/17 Rx Levothyroxine (Levothyroxine Sodium) 50 Mcg Tab 50 Mcg PO DAILY 01/11/17 Reported Combivent Respimat Inh (Ipratropium-Albuterol Inh) 20-100 Halfway/Act Aero 1 Puff INH QID 06/10/16 Rx Metoprolol Tartrate 100 Mg Tab 100 Mg PO BID 06/07/16 Reported Warfarin 2 Mg Tab 2 Mg PO DAILY 06/07/16 Reported every day but friday Pantoprazole (Pantoprazole Sodium) 40 Mg Tab 40 Mg PO DAILY 06/07/16 Reported Family History Sister has DM Dad , had Hodgkin lymphoma Mother had Afib Sister had TIA Social History No tobacco use, ETOH use, or illicit drug use (Randee Siegel) Review of Systems Constitutional: COMPLAINS OF: Fatigue, DENIES: Weight loss, Change in appetite Respiratory: COMPLAINS OF: Cough, Shortness of breath, DENIES: Wheezing Cardiovascular: DENIES: Chest pain Gastrointestinal: COMPLAINS OF: Nausea, Difficulty Swallowing, DENIES: Abdominal pain, Black stools, Bloody stools, Constipation, Diarrhea, Vomiting, Heartburn, Hematemesis Musculoskeletal: COMPLAINS OF: Joint pain Integumentary: DENIES: Abnormal pigmentation Hematologic/lymphatic: COMPLAINS OF: Bruising Neurologic: DENIES: Headache Psychiatric: DENIES: Confusion (Randee Siegel) GI Exam Vitals I&O Vital Signs Date Time Temp Pulse Resp B/P (MAP) Pulse Ox O2 Delivery O2 Flow Rate FiO2 03/11/17 10:16 64 03/11/17 09:00 64 03/11/17 08:00 64 03/11/17 07:15 97.7 65 22 136/62 (86) 94 03/11/17 07:15 63 03/11/17 07:15 94 Nasal Cannula 2.00 03/11/17 06:00 77 03/11/17 05:00 69 03/11/17 04:00 64 03/11/17 03:00 80 03/11/17 03:00 97.8 80 20 115/64 (81) 96 03/11/17 02:00 66 03/11/17 01:00 69 03/11/17 00:00 66 03/10/17 23:00 63 03/10/17 23:00 98.0 66 20 120/64 (82) 95 03/10/17 22:00 62 03/10/17 21:00 81 03/10/17 20:00 97.7 64 20 116/62 (80) 94 03/10/17 20:00 65 03/10/17 19:48 Nasal Cannula 3.00 03/10/17 19:00 64 03/10/17 18:00 66 03/10/17 17:00 64 03/10/17 16:49 18 03/10/17 16:00 97.4 63 20 102/59 (73) 94 03/10/17 16:00 66 03/10/17 15:00 65 03/10/17 14:00 64 03/10/17 13:00 64 03/10/17 12:00 66 03/10/17 12:00 97.4 64 20 113/60 (77) 94 I/O 03/10/17 03/10/17 03/10/17 03/11/17 03/11/17 03/11/17 07:00 15:00 23:00 07:00 15:00 23:00 Intake Total 240 ml 240 ml Output Total 350 ml 380 ml Balance -110 ml -140 ml Intake Oral 240 ml 240 ml Output Urine Total 350 ml 380 ml # Bowel Movements 0 Imaging Last Impressions Chest X-Ray 03/04/17 1628 Signed Impressions: Service Date/Time: Saturday, March 04, 2017 16:31 - CONCLUSION: Moderate CHF. Stable compared to previous. Sam Chacon MD Laboratory Test 03/11/17 05:40 Prothrombin Time 28.0 SEC Prothromb Time International Ratio 2.4 RATIO Blood Urea Nitrogen 34 MG/DL Creatinine 2.03 MG/DL Random Glucose 100 MG/DL Calcium Level 8.7 MG/DL Sodium Level 131 MEQ/L Potassium Level 4.7 MEQ/L Chloride Level 96 MEQ/L Carbon Dioxide Level 25.5 MEQ/L Anion Gap 10 MEQ/L Estimat Glomerular Filtration Rate 23 ML/MIN Physical Examination HEENT: Normocephalic; atraumatic; no jaundice. CHEST: Resp. shallow, mildly labored. Crackles in bases CARDIAC: Irregular ABDOMEN: Soft, nondistended, nontender; no hepatosplenomegaly; bowel sounds are present in all four quadrants. EXTREMITIES: Trace edema. SKIN: Normal; no rash; no jaundice. CHECK EMBOSSER: No focal deficits; alert and oriented times three. (Randee Siegel) Assessment and Plan Plan ASSESSMENT: - Dysphagia, Globus sensation. During this hospitalization, she deleveloped difficulty swallowing with both liquids and solids getting caught in mid to lower esophagus. Nausea with no vomiting, no heartburn, no abdominal pain. Protonix. She currently has shallow, mildly labored breathing and is on Coumadin with INR 2.4. Will start with barium swallow to evaluate for strictures prior to making decision re: egd +/- dilatation, as she would be high risk for procedure. Will increase PPI to bid dosing. - Anemia. EGD/Colonoscopy (07/10/11)-----> erythema, normal EGD otherwise. Moderate diverticulosis in the sigmoid colon, normal colon otherwise, small internal hemorrhoids. HH 9.2/28.4. - Acute exacerbation of CHF. Entresto stopped by cardiology secondary to KYRIE. Cardiology following - Respiratory failure/PNA/COPD. Zosyn, Azithromycin, nebs, per attending - Supratherapeutic INR. Improved. Back on coumadin, INR 2.4. - Atrial fibrillation. Amiodarone. Coumadin. PLAN: - Soft diet as tolerated (Heart healthy) - Barium swallow - Increase Protonix to 40mg po BID - Will await results of barium swallow prior to making decision about endoscopic evaluation. Pt has shallow breathing with mildly labored breathing and is being treated for CHF/COPD/Resp. failure and is on Coumadin with elevated INR. Would need to hold coumadin and get clearance prior to performing EGD +/- dilatation. Will start with barium swallow, increasing PPI and then decide on endoscopic evaluation - Pt seen and examined by Dr. Ortiz and myself and this note is written on his behalf (Randee Siegel) Physician Comments As above plan. Will follow up with you. (Iraj Ortiz MD) Randee Siegel Mar 11, 2017 11:28 Iraj Ortiz MD Mar 11, 2017 16:36
--- NOTE | 2017-03-11 12:11 | PD.CARD.PN ---
Subjective Subjective Remarks Denies dyspnea, CP, dizziness. Complains of difficulty swallowing, poor oral intake. Objective Medications Item Value Date Time Warfarin Sodium 1 mg 03/10/17 1600 (Coumadin) DAILY@16/PO 03/10/17 1544 Furosemide 20 mg 03/08/17 1800 (Lasix) BID@09,18/PO 03/11/17 0849 Diltiazem HCl 240 mg 03/05/17 0900 (Cardizem Cd) DAILY/PO 03/11/17 0848 Metoprolol 100 mg 03/05/17 0900 Tartrate BID/PO 03/11/17 0849 (Lopressor) Amiodarone HCl 400 mg 03/05/17 0900 (Cordarone) DAILY/PO 03/11/17 0848 Vital Signs / I&O Vital Signs Date Time Temp Pulse Resp B/P (MAP) Pulse Ox O2 Delivery O2 Flow Rate FiO2 03/11/17 12:00 77 03/11/17 11:24 94 3.00 03/11/17 11:00 97.6 67 20 109/66 (80) 95 03/11/17 11:00 95 Nasal Cannula 2.00 03/11/17 11:00 65 03/11/17 10:16 64 03/11/17 09:00 64 03/11/17 08:00 64 03/11/17 07:15 97.7 65 22 136/62 (86) 94 03/11/17 07:15 63 03/11/17 07:15 94 Nasal Cannula 2.00 03/11/17 06:00 77 03/11/17 05:00 69 03/11/17 04:00 64 03/11/17 03:00 80 03/11/17 03:00 97.8 80 20 115/64 (81) 96 03/11/17 02:00 66 03/11/17 01:00 69 03/11/17 00:00 66 03/10/17 23:00 63 03/10/17 23:00 98.0 66 20 120/64 (82) 95 03/10/17 22:00 62 03/10/17 21:00 81 03/10/17 20:00 97.7 64 20 116/62 (80) 94 03/10/17 20:00 65 03/10/17 19:48 Nasal Cannula 3.00 03/10/17 19:00 64 03/10/17 18:00 66 03/10/17 17:00 64 03/10/17 16:49 18 03/10/17 16:00 97.4 63 20 102/59 (73) 94 03/10/17 16:00 66 03/10/17 15:00 65 03/10/17 14:00 64 03/10/17 13:00 64 I/O 03/10/17 03/10/17 03/10/17 03/11/17 03/11/17 03/11/17 07:00 15:00 23:00 07:00 15:00 23:00 Intake Total 240 ml 240 ml Output Total 350 ml 380 ml Balance -110 ml -140 ml Intake Oral 240 ml 240 ml Output Urine Total 350 ml 380 ml # Bowel Movements 0 Physical Exam GENERAL: Well developed, well nourished. No acute distress. HEENT: Jugular venous pressure is normal. CHEST: Diminished breath sounds bases. CARDIAC: Regular rate and rhythm without S3, S4, or murmur. ABDOMEN: Soft, nontender, no hepatosplenomegaly. Bowel sounds present. EXTREMITIES: No clubbing, cyanosis, or edema. Laboratory Laboratory Tests Test 03/11/17 05:40 Prothrombin Time 28.0 SEC Prothromb Time International Ratio 2.4 RATIO Blood Urea Nitrogen 34 MG/DL Creatinine 2.03 MG/DL Random Glucose 100 MG/DL Calcium Level 8.7 MG/DL Sodium Level 131 MEQ/L Potassium Level 4.7 MEQ/L Chloride Level 96 MEQ/L Carbon Dioxide Level 25.5 MEQ/L Anion Gap 10 MEQ/L Estimat Glomerular Filtration Rate 23 ML/MIN Assessment and Plan Problem List: (1) CHF (congestive heart failure) ICD Codes: I50.9 - Congestive heart failure Status: Acute Plan: Overall compensated. Good diuresis since admission. Continued rise in creatinine noted, now off Entresto. REC consider holding furosemide for now (2) Paroxysmal a-fib ICD Codes: I48.0 - Paroxysmal a-fib Status: Chronic Plan: Overall stable on Amiodarone. No atrial fib evident on monitoring. (3) Nonsustained ventricular tachycardia ICD Codes: I47.2 - Ventricular tachycardia Status: Acute Plan: Overall stable on Amiodarone at increased dose to 400 mg qd. Continue to monitor. Episode of near syncope two days ago, no associated arrhythmias noted on monitoring. May have had vasovagal mediated event. (4) HTN (hypertension) ICD Codes: I10 - Essential (primary) hypertension Status: Chronic Plan: Remains normotensive. Continue to monitor. (5) History of cardiac pacemaker ICD Codes: Z95.0 - Presence of cardiac pacemaker Status: Chronic Code Status full code Discussed Condition With patient Problem Qualifiers (1) CHF (congestive heart failure): Qualified Codes: I50.23 - Acute on chronic systolic (congestive) heart failure (2) HTN (hypertension): Qualified Codes: I10 - Essential (primary) hypertension Demetris Jansen MD Mar 11, 2017 12:11
[2017-03-11 14:28] LABS: UR UREA/CREAT RATIO 11.44 mg/mg
--- NOTE | 2017-03-11 16:21 | HHI.PR ---
Addendum to Inpatient Note Addendum Reason: Additional Documentation Additional Information I was notified by RN that pt's BPs have been trending down, latest BP is 58/25 MAP of 36. Pt also complaining of having difficulty breathing. Will order STAT Chest x-ray, ABG, and give her 1L NS bolus now. Hold all BP meds for now. Per RN , pt satting well on 2 L Vanessa Conroy MD Mar 11, 2017 16:21
[2017-03-11] MEDS ORDERED: SODIUM CHLOR 0.9% 1000 ML INJ 1,000 ML IV ONE (16:30)
[2017-03-11 16:38] LABS: BLOOD GAS BASE EXCESS -7.2 mmol/L (-2-2); BLOOD GAS CARBOXYHEMOGLOBIN 1.4 % (0-4); BLOOD GAS HCO3 18 mmol/L (22-26); BLOOD GAS METHEMOGLOBIN 0.8 % (0-2); BLOOD GAS O2 HGB SATURATION 93 % (90-100); BLOOD GAS OXYGEN CONTENT 12.1 Vol % (12.0-20.0); BLOOD GAS PCO2 34 mmHg (38-42); BLOOD GAS PO2 88 mmHg (61-120); BLOOD GAS TOTAL HGB 9.2 G/DL (12.0-16.0); CRITICAL VALUE NO; DRAW SITE LT RADIAL; LITER FLOW 15 L/M; NUMBER OF ARTERIAL PUNCTURES 1; OXYGEN DEVICE NON REBREATHER; STAT NO; TEMP CORR TO 98.6
--- NOTE | 2017-03-11 17:14 | RADRPT ---
EXAM DATE/TIME: 03/11/2017 16:36 [facility] COMPARISON: CHEST SINGLE AP, March 10, 2017, 12:11. INDICATIONS : Short of breath. MEDICAL HISTORY : Congestive heart failure. SURGICAL HISTORY : Pacemaker. ENCOUNTER: Subsequent ACUITY: 1 week PAIN SCORE: 0/10 LOCATION: Bilateral chest FINDINGS: Increase in bilateral effusions and consolidation in the lower lobes. Cardiomegaly and aortic calcifi cation. Dual-lead pacer device again seen. CONCLUSION: Increase in bilateral effusions and lower lobe consolidation Milind Keane MD on March 11, 2017 at 17:12 Board Certified Radiologist. This report was verified electronically.
[2017-03-11] MEDS ORDERED: DOBUTamine PREMIX DRIP 250 ML IV SCH (17:32)
[2017-03-11] MEDS ORDERED: EPINEPHrine HCL (1:10,000) 1 MG/10 ML SYRINGE IV ONE (18:13)
[2017-03-11] MEDS ORDERED: SODIUM BICARBONATE 8.4% INJ 50 MEQ/50 ML SYR IV ONE (18:13)
[2017-03-11] MEDS ORDERED: EPINEPHrine HCL (1:1000) 30 MG/30 ML VIAL IV ONE (18:13)
[2017-03-11] MEDS ORDERED: AMIODARONE HCL 150 MG/3 ML VIAL IV ONE (18:13)
[2017-03-11] MEDS ORDERED: CALCIUM CHLORIDE 10% SOLN 1 GRAM/10 ML SYR IV ONE (18:13)
--- NOTE | 2017-03-11 18:22 | PD.PROCEDR ---
Procedure Note Procedure CODE BLUE note CODE BLUE. 1750 patient went to PEA rest. From 1852 09/07/00 patient received 3 mg epinephrine, 2 ampules of bicarbonate and 1 g calcium chloride. In this time patient is to be minute 5 mcg/kg per minute. At it yet, patient was in V. fib and was shocked with 200 J. Superior resumed until 180. Patient received 2 mg epinephrine total and 300 mg bolus amiodarone. Patient was shocked with 200 J at 1808 and 1809. Patient received 150 mg of amiodarone. Patient was shocked 360 is at 1811. Patient received 1 mg epinephrine at 1812. 1814, patient. Rest. No palpable carotid or femoral. Radial pulse. Time of 1813. Bj Flores MD Mar 11, 2017 18:22
--- NOTE | 2017-03-11 18:23 | DEATH SUM ---
Pronouncement Date Pronounced : Mar 11, 2017 Time Of : 18:14 Pronouncement Called to pronounce of patient. Identified patient as Jaye Paul with wrist band MR# [id number]. Patient with no cardiac activity in 2 separate leads and no palpable/auscible cardiac activity. Patient with no spontaneous respirations, no corneal reflex or response to painful stimuli. Pupils fixed and dilated. Preliminary Cause of : Cardiac arrest Bj Flores MD Mar 11, 2017 18:23
[2017-03-11 18:25] LABS: BICARBONATE 19.8 MEQ/L (21.0-32.0)
[2017-03-11 18:29] LABS: POTASSIUM 6.8 MEQ/L (3.5-5.1)
--- NOTE | 2017-03-11 18:30 | PD.PROCEDR ---
Procedure Note Procedure Procedure: Arterial Line Placement Right radial arterial line Diagnosis: Cardiogenic shock Indications: Need for beat to beat hemodynamic monitoring Consent: Emergent Description of the Procedure: The right wrist was prepped and draped sterilely. 1% lidocaine was used for local anesthesia. Ultrasound guidance was used to identify the radial artery. Vascular anatomy of the right wrist was normal. Under direct ultrasound visualization the radial artery was located and a needle was advanced into the artery. A 20 gauge, 12 cm catheter was advanced into the artery using a modified Seldinger technique. The catheter was sutured to the skin and a sterile dressing was applied. The catheter was connected to a pressure transducer and an arterial waveform was noted. There were no immediate complications noted. There was minimal EBL. I personally performed the procedure. Christian Deutsch MD Mar 11, 2017 18:30
--- NOTE | 2017-03-11 18:32 | PD.PROCEDR ---
Procedure Note Procedure Endotracheal Intubation Diagnosis: PEA arrest, cardiogenic shock Indications: PEA arrest, acute hypoxic and hypercarbic respiratory failure Consent: Emergent Anesthesia: none Description of the Procedure: The patient was positioned in the sniffing position. CPR was ongoing. Pre- oxygenation was performed using a [id number]. No anesthesia was given. A Burton #2 was used for laryngoscopy and a Grade I view was obtained. A 8.0 cuffed endotracheal tube was inserted atraumatically through the vocal cords. Confirmation of correct endotracheal tube placement was made by equal and bilateral breath sounds and colorimetric CO2 detection. The endotracheal tube was secured at 22 cm at the teeth. CPR was ongoing at the conclusion I personally performed the procedure. Christian Deutsch MD Mar 11, 2017 18:32
--- NOTE | 2017-03-11 18:42 | PD.CONS ---
[facility] Service Critical Care Medicine Consult Requested By Dr. Conroy Reason for Consult hypotension Primary Care Physician Bia Tovar MD History of Present Illness This is an 86yF with a history of systolic heart failure and an EF 30-35%, being followed by Dr. st as an outpatient. She represented to the hospital with a systolic CHF exacerbation and was being aggressively diuresed for this. Today, she complained to Dr. Conroy that she felt like "a piece of food was stuck in her throat". She vehemently denied chest pain, shortness of breath, or chest tightness per Dr. Conroy. GI was consulted, and on their evaluation, the patient began to complain of substernal chest pain. Soon after this, the patient was noted to be hypotensive. She was rapid responsed and taken to the medical ICU. I evaluated the patient in the medical ICU where she was without IV access. She was altered, but maintaining her own airway. was on NRB with spo2 92%. She could not complete a history. Vascular Access team was emergently called and placed two peripheral iv's. I performed bedside critical care ultrasound which demonstrated severely depressed LV function with what appears to be septal and infraseptal dyskinesis. Her Right ventricular function was moderately depressed. Her IVC measured 2.3cm without respiratory variation and there was spontaneous echo contrast noted in the IVC and right atrium. There was moderate TR, but no other clinically significant valvular lesions. There was no pericardial effusion, but a left pleural effusion was noted. At this point, Acute myocardial infarction was high on the differential diagnosis. The patient was fully anticoagulated already, so acute PE was unlikely. On clinical exam, the patient had significant JVD above the level of the mandible. she was cool and poorly perfused, slightly mottled. she appeared to be in severe distress. Initial plan was to place arterial line for pulse contour analysis and minimally invasive cardiac output measurement and start inotropic therapy with dobutamine while we get stat BMP, cardiac enzymes, BNP, lactate. However, she quickly decompensated into PEA arrest. ACLS was immediately started (please see separate procedure note for details). I intubated the patient (see separate procedure note for details). Despite our maximal efforts, the patient at 18:14. Her son was notified who was at bedside for the Code Blue event. Review of Systems ROS Limitations: Clinical Condition, Altered Mental Status Past Family Social History Allergies: Coded Allergies: No Known Allergies (Unverified , 02/09/17) Past Medical History unobtainable from the patient. EF 30-35%. systolic CHF Past Surgical History unobtainable from the patient. Reported Medications unobtainable from the patient. Active Ordered Medications See MAR Family History unobtainable from the patient. Social History unobtainable from the patient. Physical Exam Vital Signs Vital Signs Date Time Temp Pulse Resp B/P (MAP) Pulse Ox O2 Delivery O2 Flow Rate FiO2 03/11/17 15:00 78 03/11/17 15:00 97.7 71 22 87/52 (64) 97 03/11/17 15:00 97 Nasal Cannula 2.00 03/11/17 14:07 69 03/11/17 13:00 74 03/11/17 12:00 77 03/11/17 11:24 94 3.00 03/11/17 11:00 97.6 67 20 109/66 (80) 95 03/11/17 11:00 95 Nasal Cannula 2.00 03/11/17 11:00 65 03/11/17 10:16 64 03/11/17 09:00 64 03/11/17 08:00 64 03/11/17 07:15 97.7 65 22 136/62 (86) 94 03/11/17 07:15 63 03/11/17 07:15 94 Nasal Cannula 2.00 03/11/17 06:00 77 03/11/17 05:00 69 03/11/17 04:00 64 03/11/17 03:00 80 03/11/17 03:00 97.8 80 20 115/64 (81) 96 03/11/17 02:00 66 03/11/17 01:00 69 03/11/17 00:00 66 03/10/17 23:00 63 03/10/17 23:00 98.0 66 20 120/64 (82) 95 03/10/17 22:00 62 03/10/17 21:00 81 03/10/17 20:00 97.7 64 20 116/62 (80) 94 03/10/17 20:00 65 03/10/17 19:48 Nasal Cannula 3.00 03/10/17 19:00 64 Physical Exam frail elderly female, acute distress, lying in bed. tachypneic, gasping +JVD cool, poorly perfused, pulses 1+. Laboratory Laboratory Tests Test 03/11/17 05:40 03/11/17 16:23 03/11/17 17:47 Prothrombin Time 28.0 Prothromb Time International Ratio 2.4 Blood Urea Nitrogen 34 37 Creatinine 2.03 2.53 Random Glucose 100 140 Calcium Level 8.7 7.7 Sodium Level 131 129 Potassium Level 4.7 6.8 Chloride Level 96 98 Carbon Dioxide Level 25.5 19.8 Anion Gap 10 11 Estimat Glomerular Filtration Rate 23 18 Blood Gas Puncture Site LT RADIAL Blood Gas Patient Temperature 98.6 Blood Gas HCO3 18 Blood Gas Base Excess -7.2 Blood Gas Oxygen Saturation 93 Arterial Blood pH 7.33 Arterial Blood Partial Pressure CO2 34 Arterial Blood Partial Pressure O2 88 Arterial Blood Oxygen Content 12.1 Arterial Blood Carboxyhemoglobin 1.4 Arterial Blood Methemoglobin 0.8 Blood Gas Hemoglobin 9.2 Oxygen Delivery Device NON REBREATHER Blood Gas Liter Flow 15 Lactic Acid Level 5.7 Total Creatine Kinase 41 Troponin I 0.02 B-Type Natriuretic Peptide 1607 Result Diagram: 03/10/17 0518 03/11/17 0540 Imaging Last Impressions Chest X-Ray 03/10/17 0000 Signed Impressions: Service Date/Time: Friday, March 10, 2017 12:11 - CONCLUSION: 1. Bibasilar densities. 2. Cardiomegaly with small bilateral pleural effusions. 3. No significant change. Martín Oquendo MD Assessment and Plan Assessment and Plan Assessment: 86yF with likely acute myocardial infarction, cardiogenic shock, decompensating into cardiac arrest. Active Problems: Acute myocardial infarction Cardiogenic Shock Acute hypoxic and hypercarbic respiratory failure Metabolic Encephalopathy This patient remained critically ill throughout the time I evaluated the patient until she was declared . I have spent in excess of 62 minutes discontinuously in the care and management of this patient. This time is exclusive of procedures, and includes, but is not limited to, evaluation of the patient, review of the medical record, discussions with family, consultants, nursing staff, or respiratory therapy, and documentation in the medical record. Christian Deutsch MD Mar 11, 2017 18:42
--- NOTE | 2017-03-12 19:50 | EKG ---
Date Performed: 03/11/2017 Time Performed: 17:34:44 PTAGE: 86 years EKG: AV pacing Abnormal ECG PREVIOUS TRACING : 03/04/2017 17.48 Compared to prior tracing no significant change DOCTOR: Ana Encarnacion Interpretating Date/Time 03/12/2017 19:50:19
--- NOTE | 2017-04-26 14:36 | HHI.DS ---
Summary Note Date of : Mar 11, 2017 Time Of : 1813 Admission Date Mar 04, 2017 at 19:17 Admitting Diagnosis congestive heart failure, hypoxia, respiratory distress Diagnosis at Time of : (1) Acute exacerbation of CHF (congestive heart failure) ICD Code: I50.9 - Heart failure, unspecified Diagnosis: Principal (2) Acute respiratory failure ICD Code: J96.00 - Acute respiratory failure, unspecified whether with hypoxia or hypercapnia (3) Supratherapeutic INR ICD Code: R79.1 - Abnormal coagulation profile (4) HTN (hypertension) ICD Code: I10 - Essential (primary) hypertension (5) Hypothyroidism ICD Code: E03.9 - Hypothyroidism Procedures none Brief History Written by THOMAS Garvin acting as scribe for [Ruthie] on 03/04/17 at 20: 52. 86 y/o female with a history of CHF, COPD with home O2, pacemaker, CKD stage 3, hypothyroidism, afib on Coumadin and HTN presented to the ED with complaints of dyspnea. She states she just couldn't breath and it has been coming on slowly, she also has increased leg swelling. She does have abdominal pain that started today and she says the pressure from the fluid is what causes her pain. Denies any fever, chills, chest pain, dysuria, dizziness, nausea, vomiting, diarrhea or headaches. She only takes her Lasix every other night. She was just recently discharged from the nursing [facility]hab [facility] on February 17, she has not been on antibiotics since rehab. She was seen yesterday for a pacemaker check and was told her heart rhythm was off, and her amiodarone was increased. She was going to follow up on . Echo 12/2016 EF 30-35% Pulp Tester: Dr. Dumont Head Custodian: Dr. St Imaging Last Impressions Chest X-Ray 03/10/17 0000 Signed Impressions: Service Date/Time: Friday, March 10, 2017 12:11 - CONCLUSION: 1. Bibasilar densities. 2. Cardiomegaly with small bilateral pleural effusions. 3. No significant change. Martín Oquendo MD Hospital Course This is an 86yF with a history of systolic heart failure and an EF 30-35%, being followed by Dr. st as an outpatient. She represented to the hospital with a systolic CHF exacerbation and was being aggressively diuresed for this. Today, she complained to Dr. Conroy that she felt like "a piece of food was stuck in her throat". She vehemently denied chest pain, shortness of breath, or chest tightness per Dr. Conroy. GI was consulted, and on their evaluation, the patient began to complain of substernal chest pain. Soon after this, the patient was noted to be hypotensive. She was rapid responsed and taken to the medical ICU. I evaluated the patient in the medical ICU where she was without IV access. She was altered, but maintaining her own airway. was on NRB with spo2 92%. She could not complete a history. Vascular Access team was emergently called and placed two peripheral iv's. I performed bedside critical care ultrasound which demonstrated severely depressed LV function with what appears to be septal and infraseptal dyskinesis. Her Right ventricular function was moderately depressed. Her IVC measured 2.3cm without respiratory variation and there was spontaneous echo contrast noted in the IVC and right atrium. There was moderate TR, but no other clinically significant valvular lesions. There was no pericardial effusion, but a left pleural effusion was noted. At this point, Acute myocardial infarction was high on the differential diagnosis. The patient was fully anticoagulated already, so acute PE was unlikely. On clinical exam, the patient had significant JVD above the level of the mandible. she was cool and poorly perfused, slightly mottled. she appeared to be in severe distress. Initial plan was to place arterial line for pulse contour analysis and minimally invasive cardiac output measurement and start inotropic therapy with dobutamine while we get stat BMP, cardiac enzymes, BNP, lactate. However, she quickly decompensated into PEA arrest. ACLS was immediately started (please see separate procedure note for details). I intubated the patient (see separate procedure note for details). Despite our maximal efforts, the patient at 18:14. Her son was notified who was at bedside for the Code Blue event. Christian Deutsch MD Apr 26, 2017 14:36
== END 2017-03-11 18:14 | disposition expired ==
LOC: NEPE 15:51 → NEDH 19:17 → NEDA 19:17 → UNDOADMIN 19:17 → HCIS 21:09 → HIME 03-11 16:45
PROVIDERS: ADMIT Hospitalist; ATTEND Hospitalist
PROC: 0BH17EZ Insertion of Endotracheal Airway into Trachea, Via Natural or Artificial Opening (ICD-10-PCS; principal; 2017-03-04)
PROC: 5A1955Z Respiratory Ventilation, Greater than 96 Consecutive Hours (ICD-10-PCS; 2017-03-04)
PROC: 03HY32Z Insertion of Monitoring Device into Upper Artery, Percutaneous Approach (ICD-10-PCS; 2017-03-11)
PROC: 5A2204Z Restoration of Cardiac Rhythm, Single (ICD-10-PCS; 2017-03-11)
DX: I13.0 Hypertensive heart and chronic kidney disease with heart failure and stage 1 through stage 4 chronic kidney disease, or unspecified chronic kidney disease (principal); I50.23 Acute on chronic systolic (congestive) heart failure; I21.3 ST elevation (STEMI) myocardial infarction of unspecified site; G93.41 Metabolic encephalopathy; N17.9 Acute kidney failure, unspecified; I47.2 Ventricular tachycardia; J96.01 Acute respiratory failure with hypoxia; J96.02 Acute respiratory failure with hypercapnia; N18.3 Chronic kidney disease, stage 3 (moderate); I42.9 Cardiomyopathy, unspecified; T18.128A Food in esophagus causing other injury, initial encounter; D63.1 Anemia in chronic kidney disease; E03.9 Hypothyroidism, unspecified; E78.5 Hyperlipidemia, unspecified; E87.6 Hypokalemia; F45.8 Other somatoform disorders; I46.9 Cardiac arrest, cause unspecified; I48.0 Paroxysmal atrial fibrillation; I48.2 Chronic atrial fibrillation; J44.9 Chronic obstructive pulmonary disease, unspecified; K21.9 Gastro-esophageal reflux disease without esophagitis; T45.511A Poisoning by anticoagulants, accidental (unintentional), initial encounter; T50.2X5A Adverse effect of carbonic-anhydrase inhibitors, benzothiadiazides and other diuretics, initial encounter; Z79.01 Long term (current) use of anticoagulants; Z95.0 Presence of cardiac pacemaker; Z99.81 Dependence on supplemental oxygen; M19.90 Unspecified osteoarthritis, unspecified site; H91.90 Unspecified hearing loss, unspecified ear
CPT/HCPCS: 31500; 36556; 36600; 51702; 71010; 76937; 80048; 80053; 81001; 82550; 82805; 83605; 83735; 83880; 84100; 84300; 84484; 84540; 85025; 85610; 86077; 86850; 86870; 86880; 86900; 86901; 86920; 86921; 86922; 92950; 93005; 94002; 94003; 94150; 96374; J0171; J0282; J1940; J2270; J2405; J2543; J2765